=== PATIENT | male | born 1945 | race Caucasian/White ===

== ENCOUNTER 2017-11-10 11:30 | Inpatient (IN) ==
--- NOTE | 2017-11-10 12:16 | ED ---
HPI General Chief Complaint: Fall Stated Complaint: fall/hip pain Time Seen by Provider: 11/10/17 11:43 History of Present Illness HPI Narrative: This is a 72-year-old male who had presents today from his assisted living facility with complaints of right hip pain. Patient states he fell 2 days ago and is not been able to bear weight on his right lower extremity. Patient states he initially thought it was just a bruise however when he went to get up and ambulate today he was unable to bear weight. Reports the pain as a sharp bony pain that he rates as a 6-7 out of the 10 scale. He denies any back pain. He denies any head or neck pain. He denies any other pain or injuries. Related Data Home Medications Medication Instructions Recorded Confirmed No Known Home Medications 11/10/17 11/10/17 Allergies Allergy/AdvReac Type Severity Reaction Status Date / Time No Known Allergies Allergy Unverified 11/10/17 11:37 Review of Systems ROS: all other systems reviewed are negative Constitutional Reports system reviewed and no additional complaints, except as docu Eyes Reports system reviewed and no additional complaints, except as [facility] ENT Reports system reviewed and no additional complaints, except as [facility] Cardiovascular Reports system reviewed and no additional complaints, except as [facility] Respiratory Reports system reviewed and no additional complaints, except as [facility] Gastrointestinal Reports system reviewed and no additional complaints, except as [facility] Genitourinary Reports system reviewed and no additional complaints, except as docu Musculoskeletal Denies back pain and Reports other (Right hip pain.) Integumentary/Breasts Denies other (Skin tears or lesions.) Comments: No skin tears or lesions. Neurologic Denies focal weakness, Denies sensory deficit and Denies paresthesias PMFSH Medical History Medical History Patient denies medical problems (Acute) Surgical History Surgical History No history of previous surgery (Acute) Social History Social History Substance History: No History of Abuse Second Hand Smoke Exposure: No Smoking Status: Former smoker Tobacco Type: Cigarettes How Often Do You Have a Drink Containing Alcohol: Never Recent Travel in [facility] within the Last 8 Weeks: No Immunization History Tetanus Immunization: >5 Years Hx Influenza Vaccine This Season: No Exam Narrative Exam Narrative: GENERAL: Well-nourished, well-developed patient, in no acute respiratory distress. SKIN: Focused skin assessment warm/dry. HEAD: Normocephalic/atraumatic. EYES: No scleral icterus. No injection or drainage. NECK: Supple, trachea midline. No JVD or lymphadenopathy. CARDIOVASCULAR: Sinus tachycardia with a rate of 112. No obvious murmurs appreciated. RESPIRATORY: Breath sounds equal bilaterally. No accessory muscle use. GASTROINTESTINAL: Abdomen soft, non-tender, nondistended. MUSCULOSKELETAL: Right lower extremity with no shortening. Patient had point tenderness to his right proximal femur at the hip level. No external rotation was noted. BACK: Nontender without obvious deformity. No CVA tenderness. NEUROLOGICAL: Awake and alert. Cranial nerves II through XII intact. Motor and sensory grossly within normal limits. Five out of 5 muscle strength in all muscle groups. Normal speech. Course Initial Documented Vital Signs Temperature 97.9 F 11/10/17 11:37 Pulse Rate 111 H 11/10/17 11:37 Respiratory Rate 19 11/10/17 11:37 Blood Pressure 162/89 H 11/10/17 11:37 Pulse Oximetry 94 L 11/10/17 11:37 Last Documented Vital Signs Temperature 97.9 F 11/10/17 11:37 Pulse Rate 112 H 11/10/17 13:07 Respiratory Rate 16 11/10/17 13:07 Blood Pressure 164/82 H 11/10/17 13:07 Pulse Oximetry 96 11/10/17 13:07 Medical Decision Making MDM Narrative Medical decision making narrative: 72-year-old male presents today with right hip pain. Patient fell 2 days ago and states that he cannot bear weight. Patient has a right intertrochanteric/femoral neck fracture. There is no displacement. The patient has no significant past medical history. Case was discussed with Dr. Weaver, on-call orthopedic surgeon who will see the patient and repair his fracture. [facility] Medical Screen Exam Complete: Yes Emergency Medical Condition: Yes Differential Diagnosis Differential Diagnosis: Hip fracture versus contusion versus pelvic fracture Lab Data Result diagrams: 11/10/17 12:15 11/10/17 12:15 Lab Results 11/10/17 11/10/17 11/10/17 Range/Units 12:15 12:15 12:18 WBC 8.4 (4.0-11.0) th/mm3 RBC 4.55 (4.50-5.90) mil/mm3 Hgb 14.8 (13.0-17.0) gm/dL Hct 43.8 (39.0-51.0) % MCV 96.2 (80.0-100.0) fL MCH 32.7 (27.0-34.0) pg MCHC 33.9 (32.0-36.0) % RDW 12.5 (11.6-17.2) % Plt Count 226 (150-450) th/mm3 MPV 9.2 (7.0-11.0) fL Neut % (Auto) 71.2 H (16.0-70.0) % Lymph % (Auto) 16.8 (9.0-44.0) % [place] % (Auto) 10.6 H (0.0-8.0) % Eos % (Auto) 0.6 (0.0-4.0) % Baso % (Auto) 0.8 (0.0-2.0) % Neut # (Auto) 6.0 (1.8-7.7) th/mm3 Lymph # (Auto) 1.4 (1.0-4.8) th/mm3 [place] # (Auto) 0.9 (0.0-0.9) th/mm3 Eos # (Auto) 0.1 (0.0-0.4) th/mm3 Baso # (Auto) 0.1 (0.0-0.2) th/mm3 WBC Differential . Differential Comment Auto diff final Sodium 136 (136-145) meq/L Potassium 3.7 (3.5-5.1) meq/L Chloride 99 (98-107) meq/L Carbon Dioxide 21.4 (21.0-32.0) meq/L Anion Gap 16 H (5-15) meq/L BUN 13 (7-18) mg/dL Creatinine 0.82 (0.60-1.30) mg/dL Estimated GFR Greater than 89 (>89) mL/min Random Glucose 323 H (74-106) mg/dL Calcium 8.6 (8.5-10.1) mg/dL Urine Color Yellow (Yellw/Straw) Urine Clarity Clear (Clear) Urine pH 5.0 (5.0-8.5) Ur Specific [place] 1.032 (1.002-1.035) Urine Protein Negative (Neg-Trace) mg/dL Urine Glucose (UA) 500 or greater (Negative) mg/dL Urine Ketones 20 (Negative) mg/dL Urine Occult Blood Negative (Negative) Urine Nitrate Negative (Negative) Urine Bilirubin Negative (Negative) Urine Urobilinogen Less than 2 (Less than 2) mg/dL Ur Leukocyte Esterase Negative (Negative) Urine RBC 1 (0-3) /hpf Urine WBC 4 (0-5) /hpf Ur Squamous Epith Cells <1 (0-5) /hpf Urine Mucus Few H (Occasional) /lpf Micro UA Comment Culture not ind Ur Microscopic Review Not Reportable Urine Culture Comments Culture not ind Imaging Data Radiologist's impression: Hip X-Ray 11/10/17 11:59 CONCLUSION: Trochanteric fracture. Anatomic alignment of the femoral head with the acetabulum.. Discharge Plan Discharge Disposition Patient Disposition: 30 Still Patient Discharge Details Diagnosis: Closed hip fracture requiring operative repair, Fall Physicians Team ED Provider: Brendan Vogt Primary Care Provider: UNKNOWN, Rxs /Orders / Referrals /Forms Prescriptions: No Action No Known Home Medications RF: 0 Discharge Interventions Interventions: Vital Signs Last Done: 11/10/17 13:07 Status ED Status: With Doctor
[2017-11-10 12:30] LABS: Baso # (Auto) 0.1 th/mm3 (0.0-0.2); Baso % (Auto) 0.8 % (0.0-2.0); Eos # (Auto) 0.1 th/mm3 (0.0-0.4); Eos % (Auto) 0.6 % (0.0-4.0); Hematocrit 43.8 % (39.0-51.0); Hemoglobin 14.8 gm/dL (13.0-17.0); Lymph # (Auto) 1.4 th/mm3 (1.0-4.8); Lymph % (Auto) 16.8 % (9.0-44.0); Mean Corpuscular HGB Conc 33.9 % (32.0-36.0); Mean Corpuscular Hemoglobin 32.7 pg (27.0-34.0); Mean Corpuscular Volume 96.2 fL (80.0-100.0); Mean Platelet Volume 9.2 fL (7.0-11.0); Mono # (Auto) 0.9 th/mm3 (0.0-0.9); Mono % (Auto) 10.6 % (0.0-8.0); Neut % (Auto) 71.2 % (16.0-70.0); Platelet Count 226 th/mm3 (150-450); Red Blood Count 4.55 mil/mm3 (4.50-5.90); Red Cell Distribution Width 12.5 % (11.6-17.2); White Blood Count 8.4 th/mm3 (4.0-11.0)
[2017-11-10 12:32] LABS: Bilirubin,Urine Negative (Negative); Clarity,Urine Clear (Clear); Color,Urine Yellow (Yellw/Straw); Glucose,Urine (UA) 500 or Greater mg/dL (Negative); Leukocyte Esterase,Urine Negative (Negative); Mucus,Urine Few /lpf (Occasional); Nitrite,Urine Negative (Negative); Specific Gravity,Urine 1.032 (1.002-1.035); Squamous Epithelial Cell,Urine <1 /hpf (0-5)
[2017-11-10 12:53] LABS: Anion Gap 16 meq/L (5-15); Blood Urea Nitrogen 13 mg/dL (7-18); Calcium 8.6 mg/dL (8.5-10.1); Carbon Dioxide 21.4 meq/L (21.0-32.0); Chloride 99 meq/L (98-107); Glomerular Filtration Rate Greater Than 89 mL/min (>89); Glucose,Random 323 mg/dL (74-106); Potassium 3.7 meq/L (3.5-5.1); Sodium 136 meq/L (136-145)
--- NOTE | 2017-11-10 13:19 | XR ---
EXAM DATE: 11/10/2017 1:06 PM EDT AGE/SEX: 72 years / Male INDICATIONS: Trauma. Fall. Possible fracture at the right femoral neck. CLINICAL DATA: This is the patient's initial encounter. Patient reports that signs and symptoms have been present for 3 days and indicates a pain score of 8/10. MEDICAL/SURGICAL HISTORY: None. None. COMPARISON: No prior exams available for comparison. FINDINGS: Intertrochanteric fracture of the right hip. Femoral head is aligned with the acetabulum. CONCLUSION: Trochanteric fracture. Anatomic alignment of the femoral head with the acetabulum.. Electronically signed by: Jann Xavier MD 11/10/2017 1:17 PM EDT
[2017-11-10 15:19] LABS: Activated Partial Thrombo Time 21.9 sec (24.3-30.1); Prothrombin Time 10.1 sec (9.8-11.6)
--- NOTE | 2017-11-10 16:22 | P.HPIM ---
History of Present Illness Service: [facility] Primary Care Physician: UNKNOWN Chief Complaint: inability to bear weight History of Present Illness: Mr. Fitch is a 72 yo M with no reported PMH schizoaffective disorder who presented to [facility] from [facility] after reported fall injury 3 days prior. Patient states that he tripped on a slipper and his right leg was bent resulted in him falling. Patient reports immediate knowledge of injury; he was able to crawl into bed and stayed there for ~2 days hoping his pain would improve. Patient was then unable to stand when helped by staff so was taken to hospital. He reports pain when standing but that he felt good last night so he thought he was improving. Patient denies medical conditions. No reported head injury from fall; he states that it was from tripping. Patient does not report chest pain, shortness of breath, abdominal pain, abnormal urination, or abnormal BM. 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 He generally does well and doesn't need assistance from staff PMH- schizoaffective disorder PSH- L humerus fracture Allergies- NKDA Meds- None; occasional ASA - Diagnosis (1) Closed hip fracture requiring operative repair (2) Fall Inpatient Certification: I certify that the inpatient services were ordered in accordance with Medicare regulations governing the order. This includes certification that hospital inpatient services are reasonable and necessary and in the case of services not specified as inpatient-only under 42 CFR 419.22(n), that they are appropriately provided as inpatient services in accordance to with the 2-midnight benchmark under 43 CFR 412.3(e) Review of Systems All other systems reviewed negative except as stated in HPI, unobtainable due to mental condition Constitutional: Denies chills, Denies fever(s) Eyes: Denies blurry vision, Denies change in vision Ears, Nose, Mouth, and Throat: Denies sinus pain, Denies sore throat Cardiovascular: Denies chest pain, Denies shortness of breath Respiratory: Denies shortness of breath, Denies wheezing Gastrointestinal: Denies abdominal pain, Denies vomiting Genitourinary: Denies urinary frequency, Denies urinary urgency Musculoskeletal: Denies neck pain, Denies numbness Skin/Breast: Denies lesions, Denies redness Neurologic: Denies numbness, Denies tingling Psychiatric: Reports other (reports he is billionare, friends with [employer]) Hematologic/Lymphatic: Denies easy bleeding, Denies easy bruising PMFSH - History History Provided By: Patient - Medical History Medical History: Medical History (Last Updated 11/10/17 @ 11:40 by Lisa Molina) Patient denies medical problems - Surgical History Surgical History: Surgical History (Last Updated 11/10/17 @ 11:40 by Lisa Molina) No history of previous surgery - Social History I have reviewed the patient's Social History: Yes - Tobacco History Second Hand Smoke Exposure: No Tobacco Use In Past 30 Days: No Smoking Status: Former smoker Tobacco Type: Cigarettes - Alcohol History How Often Do You Have a Drink Containing Alcohol: Never - Substance Use History Substance History: No History of Abuse - Travel History Recent Travel in the [facility] Within the Last 8 Weeks: No - Immunization History Tetanus Immunization: >5 Years Hx Influenza Vaccine This Season: No Medications and Allergies Active Medications: Active Medications Sodium Chloride (Ns Flush) 2 ml IV.FLUSH PRN PRN PRN Reason: FLUSH AFTER USING IV ACCESS Allergies Allergy/AdvReac Type Severity Reaction Status Date / Time No Known Allergies Allergy Verified 11/10/17 20:57 Home Medications Medication Instructions Recorded Confirmed Type No Known Home Medications 11/10/17 11/10/17 History Exam Vital signs: Vital Signs 11/10/17 11:37 11/10/17 11:41 11/10/17 13:07 Temperature 97.9 F Pulse Rate 111 H 108 H 112 H Respiratory Rate 19 16 Blood Pressure 162/89 H 164/82 H Pulse Oximetry 94 L 96 Intake & Output 11/09/17 11/10/17 11/10/17 18:59 06:59 18:59 Weight 81.647 kg Narrative: Gen: NAD Skin: No visible lesions HEENT: EOMI; PERRLA. Cardiovascular: Regular rate and rhythm; normal perfusion. R LE swelling Respiratory: CTAB; normal rate Abdominal: Soft, nontender, nondistended. Normal BS Ext: Grossly normal ROM and motor function of upper extremities> RLE extended; ROM of RLE not assessed. No pain at rest Neuro: Oriented to place, person, time. Grossly normal CN. Grossly normal peripheral motor/sensory function Psych: Patient would answer questions directly when asked but would have tangential thoughts and seeming delusions. 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 Results - Labs CBC & Chem 7: 11/10/17 12:15 11/10/17 12:15 Labs: Short CBC 11/10/17 Range/Units 12:15 WBC 8.4 (4.0-11.0) th/mm3 Hgb 14.8 (13.0-17.0) gm/dL Hct 43.8 (39.0-51.0) % Plt Count 226 (150-450) th/mm3 BMP 11/10/17 12:15 Sodium 136 Potassium 3.7 Chloride 99 Carbon Dioxide 21.4 BUN 13 Creatinine 0.82 Calcium 8.6 Urine 11/10/17 Range/Units 12:18 Urine Color Yellow (Yellw/Straw) Urine Clarity Clear (Clear) Urine pH 5.0 (5.0-8.5) Ur Specific [place] 1.032 (1.002-1.035) Urine Protein Negative (Neg-Trace) mg/dL Urine Glucose (UA) 500 or greater (Negative) mg/dL - Imaging Impressions Hip X-Ray 11/10/17 11:59 CONCLUSION: Trochanteric fracture. Anatomic alignment of the femoral head with the acetabulum.. Caprini VTE Risk Assessment Caprini VTE Risk Assessment: Moderate/High Risk (score >= 2) Caprini Risk Assessment Model: Point Value = 1 Point Value = 2 Point Value = 3 Point Value = 5 Age 41-60 Minor surgery BMI > 25 kg/m2 Swollen legs Varicose veins or History of unexplained or recurrent spontaneous Oral contraceptives or hormone replacement Sepsis (< 1 month) Serious lung disease, including pneumonia (< 1 month) Abnormal pulmonary function Acute myocardial infarction Congestive heart failure (< 1 month) History of inflammatory bowel disease Medical patient at bed rest Age 61-74 Arthroscopic surgery Major open surgery (> 45 min) Laparoscopic surgery (> 45 min) Malignancy Confined to bed (> 72 hours) Immobilizing plaster cast Central venous access Age >= 75 History of VTE Family history of VTE Factor V Leiden Prothrombin [id number] Lupus anticoagulant Anticardiolipin antibodies Elevated serum homocysteine Heparin-induced thrombocytopenia Other congenital or acquired thrombophilia Stroke (< 1 month) Elective arthroplasty Hip, pelvis, or leg fracture Acute spinal cord injury (< 1 month) Prophylaxis Regimen: Total Risk Factor Score Risk Level Prophylaxis Regimen 0-1 Low Early ambulation 2 Moderate Order ONE of the following: *Sequential Compression Device (SCD) *Heparin 5000 units SQ BID 3-4 Higher Order ONE of the following medications: *Heparin 5000 units SQ TID *Enoxaparin/Lovenox 40 mg SQ daily (WT < 150 kg, CrCl > 30 mL/min) *Enoxaparin/Lovenox 30 mg SQ daily (WT < 150 kg, CrCl > 10-29 mL/min) *Enoxaparin/Lovenox 30 mg SQ BID (WT < 150 kg, CrCl > 30 mL/min) AND/OR *Sequential Compression Device (SCD) 5 or more Highest Order ONE of the following medications: *Heparin 5000 units SQ TID (Preferred with Epidurals) *Enoxaparin/Lovenox 40 mg SQ daily (WT < 150 kg, CrCl > 30 mL/min) *Enoxaparin/Lovenox 30 mg SQ daily (WT < 150 kg, CrCl > 10-29 mL/min) *Enoxaparin/Lovenox 30 mg SQ BID (WT < 150 kg, CrCl > 30 mL/min) AND *Sequential Compression Device (SCD) Assessment and Plan - Assessment (1) Closed hip fracture requiring operative repair Code(s): S72.009A - Fracture of unspecified part of neck of unspecified femur, initial encounter for closed fracture Status: Acute (2) Fall Code(s): W19.XXXA - Unspecified fall, initial encounter Status: Acute - Plan Mr. Fitch is a 72 yo M with: Right hip fracture Impression: Mechanical fall resulting in R hip fracture 3 days prior. Inability to bear weight afterwards; patient has remained in bed since fracture. Hip XR on admission demonstrating intertrochanteric fracture Per discussion with Orthopedic surgery, patient initially demonstrated knowledge of risks/benefits and elected to proceed; patient subsequently changed mind and had flight of ideas -Orthopedic surgery consulted -Case management and Psychiatry consulted to establish whether patient has capacity -Will make nonweightbearing on RLE currently -Will use bilateral SCD's until decision regarding surgery made -Morphine 2mg IV q4hrs for pain control Psychiatric illness Impression: flight of ideas, delusions of grandeur intermittently. Reported PMH of schizophrenia. Neurologic exam normal; oriented -Will call patient's SHELTER to get further care details -Psychiatry consulted per Ortho recommendation Mild tachycardia Impression: sinus tachycardia on EKG. Hip fracture x3 days. CBC, CXR, UA unremarkable; no concern for sepsis currently -Will check US LE due to RLE asymmetry (assume secondary to fracture but has been bedbound for several days). Wells score -Continue IVF -Will monitor labs Presurgical evaluation Impression: No reported PMH of cardio/pulmonary/renal disease. Mild sinus tachycardia on EKG (HR 108). CBC/BMP/Coagulation profile unremarkable with exception of glucose 323 -No contraindications to surgery seen -Will give low dose SS insulin/accuchecks due to hyperglycemia on admission DVT PPX -SCD's while awaiting decision regarding surgery Code Status: Full code (1) Closed hip fracture requiring operative repair Qualifiers: Encounter type: initial encounter Laterality: right Qualified Code(s): S72.001A - Fracture of unspecified part of neck of right femur, initial encounter for closed fracture (2) Fall Qualifiers: Encounter type: initial encounter Qualified Code(s): W19.XXXA - Unspecified fall, initial encounter
[2017-11-10] MEDS ORDERED: Morphine Inj 4 MG/ML Vial IV.PUSH PRN (16:29)
[2017-11-10] MEDS ORDERED: Metoprolol Tartrate 25 MG Tablet PO ONE (17:23)
[2017-11-10] MEDS ORDERED: Chlorhexidine Gluconate 2% 1 Pack (2 Cloths) TOPICAL ONE (17:23)
[2017-11-10] MEDS ORDERED: Sodium Chlor 0.9% Inj 500 ML IV.SIG SCH (18:00)
[2017-11-10] MEDS ORDERED: ceFAZolin 2 GM Premix Inj 0 GM/0 ML PIGGYBACK IV.SIG ONE (18:13)
--- NOTE | 2017-11-10 19:42 | MB ---
cc: David MCNAIR DATE: 11/10/2017 CHIEF COMPLAINT: Right hip fracture. HISTORY OF PRESENT ILLNESS: Mr. Fitch is a 72-year-old gentleman who has a history of schizophrenia. He presented by way of transfer to the [place] emergency department after having sustained a fall 2 days ago. He resides at an assisted living facility. He notes that he fell a short distance and has since been unable to bear weight to the right lower extremity. He has tried to ambulate since then; however, has been unable to weight bear secondary to the pain. He rates the pain a 6/10 in severity. He denies any radicular component of the pain. He denies other upper extremity or lower extremity complaints. PAST MEDICAL HISTORY: Significant for schizophrenia. PAST SURGICAL HISTORY: None. SOCIAL HISTORY: Denies tobacco or alcohol use. FAMILY HISTORY: Noncontributory. MEDICATIONS: Per hospitalist chart. ALLERGIES: NO KNOWN DRUG ALLERGIES. PHYSICAL EXAMINATION: VITAL SIGNS: Temperature of 97.9, pulse 111, respiratory rate of 19, blood pressure 162/89. GENERAL: He is alert and oriented to person, place, and time; however, throughout the examination, he has flight of ideas. ABDOMEN: Nontender to palpation. CHEST: Nonlabored respirations, no audible wheezing. CARDIOVASCULAR: Sinus tachycardia at a rate of 111. NEUROLOGIC: Sensation intact to bilateral lower extremities to the sural, saphenous, SP, DP and tibial nerve distribution. MUSCULOSKELETAL: Focused evaluation of bilateral lower extremities demonstrates no tenderness or pain with log roll of the left hip. There is no tenderness over the bilateral knees, ankles or feet. There is pain with log roll of the right hip. He has a 2+ DP and PT pulse bilaterally. IMAGING: Two views of the right hip demonstrate a basicervical femoral neck fracture, displaced. ASSESSMENT: A 72-year-old gentleman status post mechanical fall 2 days ago with a right basicervical femoral neck fracture. PLAN: I had a thorough discussion with Mr. Fitch at bedside. Our perioperative team has made arrangements for open reduction and internal fixation with intramedullary nail implant of the right hip. On conversation at bedside I reviewed the relevant risks, benefits and expected postoperative course of surgical management. Risks include but are not limited to damage to surrounding blood vessels or nerves, infection, wound healing issues, malunion, nonunion, implant failure, strokes, VT, and even . The patient understood the relevant risks of surgery and elected to proceed forward with the surgical procedure. I then exited the room. Ten minutes after this discussion of informed consent, I was called back to the patient room by our nursing staff. The patient noted that he was no longer inclined to proceed with surgery. He was fixated on the fact that he was not fed any meals over the last 3 days and that as such, his fracture has not healed. I explained to him that his current fracture displacement and indications for surgery are not related to his diet intake. He understood this. I recommended surgery given the extent of displacement and standard of care in line with trochanteric and basicervical femoral neck fractures. He understood this plan of care and elected to proceed with surgery. I was then called back 10 minutes after this as anesthesia was attempting to transfer the patient to the OR. He stated that he refused surgery and as such, would like to be discharged from the hospital. At this point in time, the patient had a flight of ideas. He noted that he "owns [employer]" and that he is best friends with [employer] and that he is no longer opting for surgery. I politely understood his issues and his surgical case was canceled. Case management was then called. We will involve both psychiatry to make the decision whether this patient truly has capacity. In my professional opinion, he does not. As such, we will likely need to involve a state designated healthcare surrogate in order to make the decision for surgery. Orthopedic surgery to continue to follow the patient's inpatient care. In the interim, he is to be strict nonweightbearing to the right lower extremity. I did discuss with him that should nonoperative care be employed that this fracture is low potential for healing and that he may have chronic pain and future inability to bear weight to the lower extremity. All questions and concerns were addressed at bedside. David Weaver MD CM/ct , 06:54 PM , 07:05 PM
[2017-11-10] MEDS: Acetaminophen 325 MG Tablet PO PRN (20:55)
[2017-11-10] MEDS ORDERED: Dextrose 50% in Water 50 ML Vial IV.PUSH PRN (21:06)
[2017-11-10] MEDS: Senna/Docusate Sodium 8.6/50 MG Tablet PO SCH (22:02)
--- NOTE | 2017-11-10 23:01 | US ---
EXAM DATE: 11/10/2017 10:22 PM EDT AGE/SEX: 72 years / Male INDICATIONS: Right leg swelling. CLINICAL DATA: This is the patient's initial encounter. Patient reports that signs and symptoms have been present for 1 day and indicates a pain score of 0/10. MEDICAL/SURGICAL HISTORY: . Right leg swelling. Fractured right hip. None. COMPARISON: [facility] [place], HIP RIGHT 2V, 11/10/2017. . TECHNIQUE: Venous ultrasound of both lower extremities was performed from the inguinal ligament to t he proximal calf. Real-time, color Doppler and spectral tracing, compression and augmentation techni ques were used. FINDINGS: Partially occlusive thrombus in the right superficial femoral vein. The popliteal and joe nedra vein are completely occluded. No definite flow in the right posterior tibial vein. CONCLUSION: 1. Widespread venous thrombosis of the right lower extremity as above. Electronically signed by: Jose F Maldonado MD 11/10/2017 11:00 PM EDT
--- NOTE | 2017-11-11 00:50 | ECG ---
Date Performed: 11/10/2017 Time Performed: 11:38:32 PTAGE: 72 years EKG: SINUS TACHYCARDIA LEFT VENTRICULAR HYPERTROPHY AND ST-T CHANGE ABNORMAL ECG INTERPRETATION BASED ON A DEFAULT AGE OF 40 YEARS PREVIOUS TRACING : 01/17/2015 10.29 Since the previous tracing, no significant change not ed DOCTOR: Niko Lynn Interpretating Date/Time 11/11/2017 00:48:54
[2017-11-11 05:06] LABS: Baso # (Auto) 0.1 th/mm3 (0.0-0.2); Eos # (Auto) 0.1 th/mm3 (0.0-0.4); Eos % (Auto) 1.2 % (0.0-4.0); Hematocrit 43.9 % (39.0-51.0); Hemoglobin 15.1 gm/dL (13.0-17.0); Lymph # (Auto) 2.1 th/mm3 (1.0-4.8); Lymph % (Auto) 24.4 % (9.0-44.0); Mean Corpuscular HGB Conc 34.3 % (32.0-36.0); Mean Corpuscular Hemoglobin 32.7 pg (27.0-34.0); Mean Corpuscular Volume 95.2 fL (80.0-100.0); Mean Platelet Volume 9.2 fL (7.0-11.0); Mono % (Auto) 12.2 % (0.0-8.0); Neut # (Auto) 5.2 th/mm3 (1.8-7.7); Neut % (Auto) 61.2 % (16.0-70.0); Platelet Count 229 th/mm3 (150-450); Red Blood Count 4.61 mil/mm3 (4.50-5.90); Red Cell Distribution Width 12.5 % (11.6-17.2); White Blood Count 8.5 th/mm3 (4.0-11.0)
[2017-11-11] MEDS: Sod Chloride 0.9% Inj 1,000 ML IV.CONT SCH ×3 (05:16→21:31)
[2017-11-11] MEDS: Insulin NovoLOG Aspart Correctional Sugar Inj SQ SCH ×5 (05:17→20:37)
[2017-11-11 05:33] LABS: Alanine Aminotransferase 23 U/L (12-78); Albumin 2.8 g/dL (3.4-5.0); Anion Gap 15 meq/L (5-15); Aspartate Aminotransferase 21 U/L (15-37); Blood Urea Nitrogen 14 mg/dL (7-18); Calcium 8.4 mg/dL (8.5-10.1); Carbon Dioxide 23.5 meq/L (21.0-32.0); Chloride 100 meq/L (98-107); Glomerular Filtration Rate Greater Than 89 mL/min (>89); Glucose,Random 235 mg/dL (74-106); Potassium 3.6 meq/L (3.5-5.1); Sodium 138 meq/L (136-145)
[2017-11-11 05:42] LABS: Alkaline Phosphatase 84 U/L (45-117); Total Protein 7.2 g/dL (6.4-8.2)
--- NOTE | 2017-11-11 07:56 | P.PNIM ---
Subjective Interval history: Mr. Fitch was afebrile with mild tachycardia overnight; otherwise stable VS. US of lower extremities demonstrated DVT. Patient reports that he has refused surgery and that he is sure. He also declines treatment of DVT, stating that it will go away. Patient was told the risks of complication including but still declines. 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 Patient requests a diet but declines other treatment. He states his leg pain is controlled. Physical Exam Vital signs: Vital Signs 11/10/17 11:37 11/10/17 11:41 11/10/17 13:07 Temperature 97.9 F Pulse Rate 111 H 108 H 112 H Respiratory Rate 19 16 Blood Pressure 162/89 H 164/82 H Pulse Oximetry 94 L 96 11/10/17 20:00 11/11/17 00:00 11/11/17 02:47 Temperature 97.6 F 97.4 F L Pulse Rate 110 H 101 H Respiratory Rate 18 17 17 Blood Pressure 165/88 H 144/82 H Pulse Oximetry 97 98 11/11/17 04:00 Temperature 97.5 F L Pulse Rate 100 H Respiratory Rate 17 Blood Pressure 170/82 H Pulse Oximetry 98 Intake & Output 11/10/17 11/11/17 11/11/17 18:59 06:59 18:59 Output Total 300 / 300 1025 / 1025 Balance -300 / -300 -1025 / -1025 Weight 81.647 kg 81.2 kg Output: Urine 300 / 300 1025 / 1025 Other: Date of Last Bowel Movement 11/08/17 Narrative: Gen: NAD Skin: No visible lesions HEENT: EOMI; PERRLA. Cardiovascular: Regular rate and rhythm; normal perfusion. Respiratory: CTAB; normal rate Abdominal: Soft, nontender, nondistended. Normal BS Ext: Grossly normal ROM and motor function of upper extremities> RLE extended; ROM of RLE not assessed. No pain at rest. R LE swelling Neuro: Oriented to place, person, time. Grossly normal CN. Grossly normal peripheral motor/sensory function Psych: Patient would answer questions directly when asked but would have tangential thoughts and delusions of grandeur Results - Labs CBC & Chem 7: 11/11/17 03:39 11/11/17 03:39 Laboratory Results - last 24 hr 11/10/17 11/10/17 11/10/17 12:15 12:15 12:18 WBC 8.4 RBC 4.55 Hgb 14.8 Hct 43.8 MCV 96.2 MCH 32.7 MCHC 33.9 RDW 12.5 Plt Count 226 MPV 9.2 Neut % (Auto) 71.2 H Lymph % (Auto) 16.8 Waldo % (Auto) 10.6 H Eos % (Auto) 0.6 Baso % (Auto) 0.8 Neut # (Auto) 6.0 Lymph # (Auto) 1.4 [place] # (Auto) 0.9 Eos # (Auto) 0.1 Baso # (Auto) 0.1 WBC Differential . Differential Comment Auto diff final PT INR APTT Sodium 136 Potassium 3.7 Chloride 99 Carbon Dioxide 21.4 Anion Gap 16 H BUN 13 Creatinine 0.82 Estimated GFR Greater than 89 Random Glucose 323 H Calcium 8.6 Total Bilirubin AST ALT Alkaline Phosphatase Total Protein Albumin TSH Urine Color Yellow Urine Clarity Clear Urine pH 5.0 Ur Specific [place] 1.032 Urine Protein Negative Urine Glucose (UA) 500 or greater Urine Ketones 20 Urine Occult Blood Negative Urine Nitrate Negative Urine Bilirubin Negative Urine Urobilinogen Less than 2 Ur Leukocyte Esterase Negative Urine RBC 1 Urine WBC 4 Ur Squamous Epith Cells <1 Urine Mucus Few H Micro UA Comment Culture not ind Ur Microscopic Review Not Reportable Urine Culture Comments Culture not ind Blood Type Antibody Screen 11/10/17 11/10/17 11/11/17 14:54 14:54 03:39 WBC 8.5 RBC 4.61 Hgb 15.1 Hct 43.9 MCV 95.2 MCH 32.7 MCHC 34.3 RDW 12.5 Plt Count 229 MPV 9.2 Neut % (Auto) 61.2 Lymph % (Auto) 24.4 [place] % (Auto) 12.2 H Eos % (Auto) 1.2 Baso % (Auto) 1.0 Neut # (Auto) 5.2 Lymph # (Auto) 2.1 [place] # (Auto) 1.0 H Eos # (Auto) 0.1 Baso # (Auto) 0.1 WBC Differential . Differential Comment Auto diff final PT 10.1 INR 1.0 APTT 21.9 L Sodium Potassium Chloride Carbon Dioxide Anion Gap BUN Creatinine Estimated GFR Random Glucose Calcium Total Bilirubin AST ALT Alkaline Phosphatase Total Protein Albumin TSH Urine Color Urine Clarity Urine pH Ur Specific [place] Urine Protein Urine Glucose (UA) Urine Ketones Urine Occult Blood Urine Nitrate Urine Bilirubin Urine Urobilinogen Ur Leukocyte Esterase Urine RBC Urine WBC Ur Squamous Epith Cells Urine Mucus Micro UA Comment Ur Microscopic Review Urine Culture Comments Blood Type A Positive Antibody Screen Negative 11/11/17 03:39 WBC RBC Hgb Hct MCV MCH MCHC RDW Plt Count MPV Neut % (Auto) Lymph % (Auto) Wal[place] % (Auto) Eos % (Auto) Baso % (Auto) Neut # (Auto) Lymph # (Auto) [place] # (Auto) Eos # (Auto) Baso # (Auto) WBC Differential Differential Comment PT INR APTT Sodium 138 Potassium 3.6 Chloride 100 Carbon Dioxide 23.5 Anion Gap 15 BUN 14 Creatinine 0.76 Estimated GFR Greater than 89 Random Glucose 235 H Calcium 8.4 L Total Bilirubin 1.5 H AST 21 ALT 23 Alkaline Phosphatase 84 Total Protein 7.2 Albumin 2.8 L TSH 1.680 Urine Color Urine Clarity Urine pH Ur Specific [place] Urine Protein Urine Glucose (UA) Urine Ketones Urine Occult Blood Urine Nitrate Urine Bilirubin Urine Urobilinogen Ur Leukocyte Esterase Urine RBC Urine WBC Ur Squamous Epith Cells Urine Mucus Micro UA Comment Ur Microscopic Review Urine Culture Comments Blood Type Antibody Screen - Imaging Impressions Venous Doppler Study 11/10/17 00:00 CONCLUSION: 1. Widespread venous thrombosis of the right lower extremity as above. Hip X-Ray 11/10/17 11:59 CONCLUSION: Trochanteric fracture. Anatomic alignment of the femoral head with the acetabulum.. Assessment and Plan - Assessment (1) Closed hip fracture requiring operative repair Code(s): S72.009A - Fracture of unspecified part of neck of unspecified femur, initial encounter for closed fracture Status: Acute (2) Fall Code(s): W19.XXXA - Unspecified fall, initial encounter Status: Acute (3) DVT (deep venous thrombosis) Code(s): I82.409 - Acute embolism and thrombosis of unspecified deep veins of unspecified lower extremity Status: Acute (4) Schizoaffective disorder Code(s): F25.9 - Schizoaffective disorder, unspecified Status: Acute - Plan Mr. Fitch is a 72 yo M with: Right hip fracture Impression: Mechanical fall resulting in R hip fracture 3 days prior. Inability to bear weight afterwards; patient has remained in bed since fracture. Hip XR on admission demonstrating intertrochanteric fracture Per discussion with Orthopedic surgery, patient initially demonstrated knowledge of risks/benefits and elected to proceed; patient subsequently changed mind and had flight of ideas -Orthopedic surgery consulted -Case management and Psychiatry consulted to establish whether patient has capacity -Will make nonweightbearing on RLE currently -Morphine 2mg IV q4hrs for pain control -will give diet and defer surgical plans until capacity determined Psychiatric illness Impression: flight of ideas, delusions of grandeur intermittently. Reported PMH of schizophrenia. Neurologic exam normal; oriented -Will call patient's [facility] to get further care details -Psychiatry consulted DVT Impression: RLE DVT on Doppler US. Tachycardic with immobility. Patient declines treatment at this time -Psych evaluation for capacity Presurgical evaluation Impression: No reported PMH of cardio/pulmonary/renal disease. Mild sinus tachycardia on EKG (HR 108). CBC/BMP/Coagulation profile unremarkable with exception of glucose 323 -No contraindications to surgery seen -Will give low dose SS insulin/accuchecks due to hyperglycemia on admission DVT PPX -SCD's -Will need therapeutic anticoagulation and/or IVC filter based on surgery plans since has DVT Discussed Condition With: Orthopedic surgery (1) Closed hip fracture requiring operative repair Qualifiers: Encounter type: initial encounter Laterality: right Qualified Code(s): S72.001A - Fracture of unspecified part of neck of right femur, initial encounter for closed fracture (2) Fall Qualifiers: Encounter type: initial encounter Qualified Code(s): W19.XXXA - Unspecified fall, initial encounter
[2017-11-11] MEDS: Senna/Docusate Sodium 8.6/50 MG Tablet PO SCH ×2 (10:29→20:37)
[2017-11-11] MEDS: Acetaminophen 325 MG Tablet PO PRN ×2 (11:56→18:07)
[2017-11-12] MEDS: Insulin NovoLOG Aspart Correctional Sugar Inj SQ SCH ×5 (03:11→21:46)
[2017-11-12] MEDS: Acetaminophen 325 MG Tablet PO PRN ×2 (08:53→12:46)
--- NOTE | 2017-11-12 11:27 | P.PNIM ---
Subjective Interval history: Mr. Fitch is a 72 yo M with no reported PMH schizoaffective disorder who presented to [place] [facility] from [facility] after reported fall injury 3 days prior. Patient states that he tripped on a slipper and his right leg was bent resulted in him falling. Patient reports immediate knowledge of injury; he was able to crawl into bed and stayed there for ~2 days hoping his pain would improve. Patient was then unable to stand when helped by staff so was taken to hospital. He reports pain when standing but that he felt good last night so he thought he was improving. Patient denies medical conditions. No reported head injury from fall; he states that it was from tripping. Patient does not report chest pain, shortness of breath, abdominal pain, abnormal urination, or abnormal BM. 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 He generally does well and doesn't need assistance from staff PMH- schizoaffective disorder PSH- L humerus fracture Allergies- NKDA Meds- None; occasional ASA 9-22 Mr. Fitch was afebrile with mild tachycardia overnight; otherwise stable VS. US of lower extremities demonstrated DVT. Patient reports that he has refused surgery and that he is sure. He also declines treatment of DVT, stating that it will go away. Patient was told the risks of complication including but still declines. Patient also stated that he wanted me to call the social security office or find and "honest cop examiner" to give them his SS digits to confirm that he is a billionaire, helped the [employer], and [place]. Patient requests a diet but declines other treatment. He states his leg pain is controlled. 9-23 patient has flight of ideas. Is acutely bipolar and manic and schizophrenic Await psychiatry Patient is refusing all Lovenox and any other medications Has positive DVT has right hip fracture that needs repair that he is refusing Have discussed with patient and RN and case management NEEDS SURGERY AND TREATMENT FOR DVT NEEDS PSYCHIATRIC EVALUATION Physical Exam Vital signs: Vital Signs 11/11/17 12:34 11/11/17 14:06 11/11/17 20:00 Temperature 97.9 F 97.3 F L 97.2 F L Pulse Rate 115 H 104 H 101 H Respiratory Rate 16 16 18 Blood Pressure 162/91 H 144/86 H 138/86 Pulse Oximetry 97 95 94 L 11/12/17 00:00 11/12/17 08:00 Temperature 98.2 F 97.8 F Pulse Rate 93 H 94 H Respiratory Rate 18 18 Blood Pressure 144/81 H 164/99 H Pulse Oximetry 94 L Intake & Output 11/11/17 11/12/17 11/12/17 18:59 06:59 18:59 Intake Total 240 / 240 Output Total 875 / 875 1325 / 1325 500 / 500 Balance -635 / -635 -1325 / -1325 -500 / -500 Weight 81 kg Intake: Oral 240 / 240 Output: Urine 875 / 875 1325 / 1325 500 / 500 Other: # Voids 1 Date of Last Bowel Movement 11/11/17 11/11/17 11/11/17 # Bowel Movements 1 Narrative: Gen: NAD Skin: No visible lesions HEENT: EOMI; PERRLA. Cardiovascular: Regular rate and rhythm; normal perfusion. Respiratory: CTAB; normal rate Abdominal: Soft, nontender, nondistended. Normal BS Ext: Grossly normal ROM and motor function of upper extremities> RLE extended; ROM of RLE not assessed. No pain at rest. R LE swelling Neuro: Oriented to place, person, time. Grossly normal CN. Grossly normal peripheral motor/sensory function Psych: Patient would answer questions directly when asked but would have tangential thoughts and delusions of grandeur Major flight of ideas Insight and judgment is nonexistent Mood and behavior is inappropriate Results - Labs CBC & Chem 7: 11/11/17 03:39 11/11/17 03:39 Assessment and Plan - Assessment (1) Closed hip fracture requiring operative repair Code(s): S72.009A - Fracture of unspecified part of neck of unspecified femur, initial encounter for closed fracture Status: Acute (2) Fall Code(s): W19.XXXA - Unspecified fall, initial encounter Status: Acute (3) DVT (deep venous thrombosis) Code(s): I82.409 - Acute embolism and thrombosis of unspecified deep veins of unspecified lower extremity Status: Acute (4) Schizoaffective disorder Code(s): F25.9 - Schizoaffective disorder, unspecified Status: Acute - Plan Mr. Fitch is a 72 yo M with: Right hip fracture Impression: Mechanical fall resulting in R hip fracture 3 days prior. Inability to bear weight afterwards; patient has remained in bed since fracture. Hip XR on admission demonstrating intertrochanteric fracture Per discussion with Orthopedic surgery, patient initially demonstrated knowledge of risks/benefits and elected to proceed; patient subsequently changed mind and had flight of ideas -Orthopedic surgery consulted -Case management and Psychiatry consulted to establish whether patient has capacity -Will make nonweightbearing on RLE currently -Morphine 2mg IV q4hrs for pain control -will give diet and defer surgical plans until capacity determined -We will need surgery patient does not understand the concept-will see what psychiatry has to offer Psychiatric illness Impression: flight of ideas, delusions of grandeur intermittently. Reported PMH of schizophrenia. Neurologic exam normal; oriented -Will [facility] to get further care details -Psychiatry consulted --await their help with his acute psychosis DVT Impression: RLE DVT on Doppler US. Tachycardic with immobility. Patient declines treatment at this time -Psych evaluation for capacity Presurgical evaluation Impression: No reported PMH of cardio/pulmonary/renal disease. Mild sinus tachycardia on EKG (HR 108). CBC/BMP/Coagulation profile unremarkable with exception of glucose 323 -No contraindications to surgery seen -Will give low dose SS insulin/accuchecks due to hyperglycemia on admission Hyperglycemia possible diabetes we will check a hemoglobin A1c DVT PPX -SCD's -Will need therapeutic anticoagulation and/or IVC filter based on surgery plans since has DVT Code Status: Full code Discussed Condition With: RN and patient and case management Discharge Planning: Await psychiatric help as well as orthopedic help regarding his right hip fracture will also need chronic anticoagulation or an IVC filter (1) Closed hip fracture requiring operative repair Qualifiers: Encounter type: initial encounter Laterality: right Qualified Code(s): S72.001A - Fracture of unspecified part of neck of right femur, initial encounter for closed fracture (2) Fall Qualifiers: Encounter type: initial encounter Qualified Code(s): W19.XXXA - Unspecified fall, initial encounter
[2017-11-12] MEDS: Sod Chloride 0.9% Inj 1,000 ML IV.CONT SCH ×2 (11:46→21:45)
[2017-11-12] MEDS: Senna/Docusate Sodium 8.6/50 MG Tablet PO SCH ×2 (11:46→21:46)
--- NOTE | 2017-11-12 23:23 | P.PNOP ---
Subjective Interval history: Patient still refusing surgery. Flight of ideas. Physical Exam Vital signs: Vital Signs 11/12/17 00:00 11/12/17 08:00 11/12/17 12:00 Temperature 98.2 F 97.8 F 98.1 F Pulse Rate 93 H 94 H 102 H Respiratory Rate 18 18 16 Blood Pressure 144/81 H 164/99 H 167/79 H Pulse Oximetry 94 L 96 11/12/17 16:00 11/12/17 20:00 Temperature 97.6 F 97.3 F L Pulse Rate 98 H 102 H Respiratory Rate 18 18 Blood Pressure 138/76 137/87 Pulse Oximetry 94 L 93 L Intake & Output 11/12/17 11/12/17 11/13/17 06:59 18:59 06:59 Output Total 1325 / 1325 1350 / 1350 Balance -1325 / -1325 -1350 / -1350 Weight 81 kg Output: Urine 1325 / 1325 1350 / 1350 Other: Date of Last Bowel Movement 11/11/17 11/11/17 Narrative: Gen: NAD Skin: No visible lesions HEENT: EOMI; PERRLA. Cardiovascular: Regular rate and rhythm; normal perfusion. 2+ RLE DP/PT pulses Ext: Pain with log roll of RLE. Neuro: Oriented to place, person, time. SILT to dorsal and volar right foot. Psych: Flight of ideas. No insight or judgement. Results - Labs CBC & Chem 7: 11/11/17 03:39 11/11/17 03:39 Assessment and Plan - Assessment and Plan Right intertrochanteric femur fracture - Continues to refuse surgery - Awaiting social work to proceed with assignment of state designated healthcare surrogate for decision making - Awaiting Psych for capacity evaluation - Orthopedics to plan for right hip ORIF, pending receipt of informed consent. - Strict NWB RLE - DVT ppx - Multimodal pain control - Please contact Dr. Gamble's team when informed consent can be obtained from surrogate.
[2017-11-13] MEDS: Insulin NovoLOG Aspart Correctional Sugar Inj SQ SCH ×5 (03:19→22:45)
[2017-11-13 04:59] LABS: Baso # (Auto) 0.1 th/mm3 (0.0-0.2); Baso % (Auto) 1.2 % (0.0-2.0); Eos # (Auto) 0.2 th/mm3 (0.0-0.4); Eos % (Auto) 2.7 % (0.0-4.0); Hematocrit 40.2 % (39.0-51.0); Hemoglobin 13.9 gm/dL (13.0-17.0); Lymph # (Auto) 2.1 th/mm3 (1.0-4.8); Lymph % (Auto) 23.2 % (9.0-44.0); Mean Corpuscular HGB Conc 34.6 % (32.0-36.0); Mean Corpuscular Hemoglobin 33.2 pg (27.0-34.0); Mono # (Auto) 0.9 th/mm3 (0.0-0.9); Mono % (Auto) 10.6 % (0.0-8.0); Neut # (Auto) 5.5 th/mm3 (1.8-7.7); Neut % (Auto) 62.3 % (16.0-70.0); Platelet Count 204 th/mm3 (150-450); Red Blood Count 4.19 mil/mm3 (4.50-5.90); Red Cell Distribution Width 12.6 % (11.6-17.2); White Blood Count 8.9 th/mm3 (4.0-11.0)
[2017-11-13 05:24] LABS: Alanine Aminotransferase 24 U/L (12-78); Albumin 2.5 g/dL (3.4-5.0); Anion Gap 12 meq/L (5-15); Aspartate Aminotransferase 19 U/L (15-37); Blood Urea Nitrogen 15 mg/dL (7-18); Calcium 8.3 mg/dL (8.5-10.1); Carbon Dioxide 23.6 meq/L (21.0-32.0); Chloride 104 meq/L (98-107); Glomerular Filtration Rate Greater Than 89 mL/min (>89); Glucose,Random 288 mg/dL (74-106); Magnesium 1.8 mg/dL (1.5-2.5); Potassium 3.9 meq/L (3.5-5.1); Sodium 140 meq/L (136-145)
[2017-11-13 05:33] LABS: Alkaline Phosphatase 81 U/L (45-117); Free T4 (Free Thyroxine) 1.16 ng/dL (0.76-1.46); Total Protein 6.5 g/dL (6.4-8.2)
[2017-11-13] MEDS: Sod Chloride 0.9% Inj 1,000 ML IV.CONT SCH ×2 (06:06→13:53)
--- NOTE | 2017-11-13 06:41 | P.PNOP ---
Subjective Interval history: s/p right intertroch hip fx patient refusing surgery to treatment. has flight of ideas and keeps mentioning "[place]". states his pain is improving significantly with tylenol Physical Exam Vital signs: Vital Signs 11/12/17 08:00 11/12/17 12:00 11/12/17 16:00 Temperature 97.8 F 98.1 F 97.6 F Pulse Rate 94 H 102 H 98 H Respiratory Rate 18 16 18 Blood Pressure 164/99 H 167/79 H 138/76 Pulse Oximetry 96 94 L 11/12/17 20:00 11/13/17 00:00 Temperature 97.3 F L 98.5 F Pulse Rate 102 H 90 Respiratory Rate 18 17 Blood Pressure 137/87 150/82 H Pulse Oximetry 93 L 95 Intake & Output 11/12/17 11/12/17 11/13/17 06:59 18:59 06:59 Output Total 1325 / 1325 1350 / 1350 850 / 850 Balance -1325 / -1325 -1350 / -1350 -850 / -850 Weight 81 kg 81 kg Output: Urine 1325 / 1325 1350 / 1350 850 / 850 Other: Date of Last Bowel Movement 11/11/17 11/11/17 11/11/17 Narrative: RLE: moderate discomfort in thigh with movement of hip. no pain in knee or ankle. NVI Results - Labs CBC & Chem 7: 11/13/17 04:00 11/13/17 04:00 Laboratory Results - last 24 hr 11/13/17 11/13/17 04:00 04:00 WBC 8.9 RBC 4.19 L Hgb 13.9 Hct 40.2 MCV 96.0 MCH 33.2 MCHC 34.6 RDW 12.6 Plt Count 204 MPV 9.0 Neut % (Auto) 62.3 Lymph % (Auto) 23.2 [place] % (Auto) 10.6 H Eos % (Auto) 2.7 Baso % (Auto) 1.2 Neut # (Auto) 5.5 Lymph # (Auto) 2.1 [place] # (Auto) 0.9 Eos # (Auto) 0.2 Baso # (Auto) 0.1 WBC Differential . Differential Comment Auto diff final Sodium 140 Potassium 3.9 Chloride 104 Carbon Dioxide 23.6 Anion Gap 12 BUN 15 Creatinine 0.69 Estimated GFR Greater than 89 Random Glucose 288 H Calcium 8.3 L Phosphorus 3.0 Magnesium 1.8 Total Bilirubin 0.7 AST 19 ALT 24 Alkaline Phosphatase 81 Total Protein 6.5 D Albumin 2.5 L TSH 1.250 Free T4 1.16 Assessment and Plan - Assessment and Plan Right intertrochanteric femur fracture - Continues to refuse surgery - Awaiting social work to proceed with assignment of state designated healthcare surrogate for decision making - Awaiting Psych for capacity evaluation - Orthopedics to plan for right hip ORIF, pending receipt of informed consent. - Strict NWB RLE - DVT ppx - Multimodal pain control -patient still refusing. informed him of risks of nonop treatment. will plan on nonop care until psych eval or consents can be obtained
[2017-11-13] MEDS: Senna/Docusate Sodium 8.6/50 MG Tablet PO SCH ×2 (08:34→21:04)
[2017-11-13] MEDS: Acetaminophen 325 MG Tablet PO PRN ×2 (09:07→18:10)
--- NOTE | 2017-11-13 11:51 | P.PNIM ---
Subjective Interval history: Mr. Fitch is a 72 yo M with no reported PMH schizoaffective disorder who presented to [facility] ED from [facility] after reported fall injury 3 days prior. Patient states that he tripped on a slipper and his right leg was bent resulted in him falling. Patient reports immediate knowledge of injury; he was able to crawl into bed and stayed there for ~2 days hoping his pain would improve. Patient was then unable to stand when helped by staff so was taken to hospital. He reports pain when standing but that he felt good last night so he thought he was improving. Patient denies medical conditions. No reported head injury from fall; he states that it was from tripping. Patient does not report chest pain, shortness of breath, abdominal pain, abnormal urination, or abnormal BM. 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 He generally does well and doesn't need assistance from staff PMH- schizoaffective disorder PSH- L humerus fracture Allergies- NKDA Meds- None; occasional ASA 9-22 Mr. Fitch was afebrile with mild tachycardia overnight; otherwise stable VS. US of lower extremities demonstrated DVT. Patient reports that he has refused surgery and that he is sure. He also declines treatment of DVT, stating that it will go away. Patient was told the risks of complication including but still declines. Patient also stated that he wanted me to call the social security office or find and "honest copy machine operator" to give them his SS digits to confirm that he is a billionaire, helped the [employer], and saved [place]. Patient requests a diet but declines other treatment. He states his leg pain is controlled. 9-23 patient has flight of ideas. Is acutely bipolar and manic and schizophrenic Await psychiatry Patient is refusing all Lovenox and any other medications Has positive DVT has right hip fracture that needs repair that he is refusing Have discussed with patient and RN and case management NEEDS SURGERY AND TREATMENT FOR DVT NEEDS PSYCHIATRIC EVALUATION 9-24 SEEN BY PSYCHIATRY NEEDS SURGERY WILL HAVE TO SIGN FOR HIM TO HAVE SURGERY DOES NOT HAVE A GUARDIAN AT THIS TIME HAS MEDICAL NECESSITY FOR SURGERY DUE TO WORSENING RISK OF DUE TO NOT HAVING SURGERY AM LABS Physical Exam Vital signs: Vital Signs 11/12/17 12:00 11/12/17 16:00 11/12/17 20:00 Temperature 98.1 F 97.6 F 97.3 F L Pulse Rate 102 H 98 H 102 H Respiratory Rate 16 18 18 Blood Pressure 167/79 H 138/76 137/87 Pulse Oximetry 96 94 L 93 L 11/13/17 00:00 11/13/17 08:00 Temperature 98.5 F 98 F Pulse Rate 90 110 H Respiratory Rate 17 18 Blood Pressure 150/82 H 140/81 Pulse Oximetry 95 96 Intake & Output 11/12/17 11/13/17 11/13/17 18:59 06:59 18:59 Output Total 1350 / 1350 850 / 850 Balance -1350 / -1350 -850 / -850 Weight 81 kg 81 kg Output: Urine 1350 / 1350 850 / 850 Other: Date of Last Bowel Movement 11/11/17 11/11/17 11/11/17 Weight On Admission 81 kg Narrative: Gen: NAD Skin: No visible lesions HEENT: EOMI; PERRLA. Cardiovascular: Regular rate and rhythm; normal perfusion. Respiratory: CTAB; normal rate Abdominal: Soft, nontender, nondistended. Normal BS Ext: Grossly normal ROM and motor function of upper extremities> RLE extended; ROM of RLE not assessed. No pain at rest. R LE swelling Neuro: Oriented to place, person, time. Grossly normal CN. Grossly normal peripheral motor/sensory function Psych: Patient would answer questions directly when asked but would have tangential thoughts and delusions of grandeur Major flight of ideas Insight and judgment is nonexistent Mood and behavior is inappropriate Results - Labs CBC & Chem 7: 11/13/17 04:00 11/13/17 04:00 Laboratory Results - last 24 hr 11/13/17 11/13/17 04:00 04:00 WBC 8.9 RBC 4.19 L Hgb 13.9 Hct 40.2 MCV 96.0 MCH 33.2 MCHC 34.6 RDW 12.6 Plt Count 204 MPV 9.0 Neut % (Auto) 62.3 Lymph % (Auto) 23.2 Sharp % (Auto) 10.6 H Eos % (Auto) 2.7 Baso % (Auto) 1.2 Neut # (Auto) 5.5 Lymph # (Auto) 2.1 Sharp # (Auto) 0.9 Eos # (Auto) 0.2 Baso # (Auto) 0.1 WBC Differential . Differential Comment Auto diff final Sodium 140 Potassium 3.9 Chloride 104 Carbon Dioxide 23.6 Anion Gap 12 BUN 15 Creatinine 0.69 Estimated GFR Greater than 89 Random Glucose 288 H Calcium 8.3 L Phosphorus 3.0 Magnesium 1.8 Total Bilirubin 0.7 AST 19 ALT 24 Alkaline Phosphatase 81 Total Protein 6.5 D Albumin 2.5 L TSH 1.250 Free T4 1.16 Assessment and Plan - Assessment (1) Closed hip fracture requiring operative repair Code(s): S72.009A - Fracture of unspecified part of neck of unspecified femur, initial encounter for closed fracture Status: Acute (2) Fall Code(s): W19.XXXA - Unspecified fall, initial encounter Status: Acute (3) DVT (deep venous thrombosis) Code(s): I82.409 - Acute embolism and thrombosis of unspecified deep veins of unspecified lower extremity Status: Acute (4) Schizoaffective disorder Code(s): F25.9 - Schizoaffective disorder, unspecified Status: Acute - Plan Mr. Fitch is a 72 yo M with: Right hip fracture Impression: Mechanical fall resulting in R hip fracture 3 days prior. Inability to bear weight afterwards; patient has remained in bed since fracture. Hip XR on admission demonstrating intertrochanteric fracture Per discussion with Orthopedic surgery, patient initially demonstrated knowledge of risks/benefits and elected to proceed; patient subsequently changed mind and had flight of ideas -Orthopedic surgery consulted -Case management and Psychiatry consulted to establish whether patient has capacity -Will make nonweightbearing on RLE currently -Morphine 2mg IV q4hrs for pain control -will give diet and defer surgical plans until capacity determined -We will need surgery patient does not understand the concept-will see what psychiatry has to offer Psychiatric illness Impression: flight of ideas, delusions of grandeur intermittently. Reported PMH of schizophrenia. Neurologic exam normal; oriented -Will call patient's [facility] to get further care details -Psychiatry consulted --await their help with his acute psychosis WILL SIGN FOR HIM TO HAVE SURGERY DVT Impression: RLE DVT on Doppler US. Tachycardic with immobility. Patient declines treatment at this time -Psych evaluation for capacity Presurgical evaluation Impression: No reported PMH of cardio/pulmonary/renal disease. Mild sinus tachycardia on EKG (HR 108). 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 AND CASE MANAGEMENT WILL SIGN FOR HIM TO HAVE SURGERY DVT PPX -SCD's -Will need therapeutic anticoagulation and/or IVC filter based on surgery plans since has DVT Code Status: FULL CODE Discussed Condition With: DAVE RN AND PT AND CM Discharge Planning: Await psychiatric help as well as orthopedic help regarding his right hip fracture will also need chronic anticoagulation or an IVC filter (1) Closed hip fracture requiring operative repair Qualifiers: Encounter type: initial encounter Laterality: right Qualified Code(s): S72.001A - Fracture of unspecified part of neck of right femur, initial encounter for closed fracture (2) Fall Qualifiers: Encounter type: initial encounter Qualified Code(s): W19.XXXA - Unspecified fall, initial encounter
--- NOTE | 2017-11-13 13:05 | P.CONPSY ---
Provisional Diagnosis Admission Date: November 10, 2017 15:43 [place] I.: Schizoaffective disorder, bipolar type vs schizophrenia [place] II.: Deferred [place] III.: Hip fracture [place] IV.: Poor family support, chronic mental illness, hip fracture, no psychotropic medications [place] V.: 40 History of Present Illness Primary Care Provider: UNKNOWN Chief Complaint: Psychosis History of Present Illness: The patient is a 72-year-old man, domiciled in [facility], single, unemployed, supported by [facility], unknown by our service, with a psychiatric history of schizoaffective disorder, no known psychiatric hospitalizations, no suicidal attempts, the patient is not in a psychotropic regimen at this moment, without no significant medical history, who came to the hospital after reported fall injury 3 days prior. Patient states that he tripped on a slipper and his right leg was bent resulted in him falling. Patient reports immediate knowledge of injury; he was able to crawl into bed and stayed there for ~2 days hoping his pain would improve. Patient was then unable to stand when helped by staff so was taken to hospital. He reports pain when standing but that he felt good last night so he thought he was improving. Patient is admitted with right hip fracture. Impression: Mechanical fall resulting in R hip fracture 3 days prior. Inability to bear weight afterwards; patient has remained in bed since fracture. Hip XR on admission demonstrating intertrochanteric fracture Per discussion with Orthopedic surgery, patient initially demonstrated knowledge of risks/benefits and elected to proceed; patient subsequently changed mind and had flight of ideas. He also is been treated for tachycardia. The patient was consulted to psychiatry to assess his decision-making capacity to refuse treatment. The chart was reviewed. I have obtained collateral information from [facility]. I have spoken with Thais, which is the patient's coordinator. She reports that the patient has history of schizoaffective disorder, he has been living for 15 years in the residential facility, but he had never received it psychiatric treatment. She reports that the patient has been doing quite well there, he is a chronic psychotic person that does not cause any problem. He has always refused psychiatric treatment, and he has never needed to be on the [place] act for dangerous behavior or thought process. There is no family member available at this moment. The patient does not have any medical condition either. On my psychiatric evaluation today I find a patient that is poorly cooperative, irritable, oppositional and resistant to the evaluation. He says that he is not going to talk with a psychiatrist because he does not have a psychiatric illness. He says that if I want to speak with him and need to speak with a software validation engineer first in [employer]. The patient is very paranoid, he sees very suspicious and internally preoccupied, he says that he does not trust anybody here. And he also says that he is connected with the [facility] and he is connected with the head of the [facility]. The patient reports that he fell, he broke his hip, but he does not want to have any surgery. However, he was not able to tell me the reason for his refusal. And he was not able to tell me the consequences of this decision. The patient is fully oriented x3, there is no fluctuation of consciousness, there is no attention deficit at this moment. He denies suicidal and homicidal ideation, he denies visual and auditory hallucinations. PPHx: Schizoaffective disorder, no previous known hospitalizations, no previous suicide attempts, the patient is not in treatment PMHx: No significant medical history Substance Hx: Patient denies the use of illegal drugs or alcohol Family: He has a brother with schizophrenia Social Hx: The patient was born and raised in [place], he lives in [facility], he is single, unemployed, supported by [facility], his highest level of education is some college Review of Systems All other systems reviewed negative except as stated in HPI Psychiatric: Reports behavioral changes, Reports irritability, Reports paranoia PMFSH - History History Provided By: Patient - Medical History Medical History: Medical History (Last Reviewed 11/13/17 @ 07:54 by Cynthia Gary) Patient denies medical problems - Surgical History Surgical History: Surgical History (Last Reviewed 11/12/17 @ 09:28 by Dennys Lozano) No history of previous surgery - Tobacco History Second Hand Smoke Exposure: No Tobacco Use In Past 30 Days: No Smoking Status: Former smoker Tobacco Type: Cigarettes - Alcohol History How Often Do You Have a Drink Containing Alcohol: Never - Substance Use History Substance History: No History of Abuse - Travel History Recent Travel in the [facility] Within the Last 8 Weeks: No - Immunization History Tetanus Immunization: Unsure Hx Influenza Vaccine This Season: No Medications and Allergies Active Medications: Active Medications Acetaminophen (Tylenol) 650 mg PO Q4H PRN PRN Reason: Temp > 100.4 Last Admin: 11/13/17 09:07 Dose: 650 mg Dextrose (D50w Vial) 50 ml IV.PUSH UNSCH PRN PRN Reason: PER HYPOGLYCEMIA PROTOCOL Enalaprilat (Vasotec Inj) 1.25 mg IV.PUSH Q8H PRN PRN Reason: SBP>180, DBP>95 Glucagon (Glucagon Inj) 1 mg OTHER PRN PRN PRN Reason: for Hypoglycemia Protocol Sodium Chloride (Ns Inj) 1,000 mls @ 100 mls/hr IV.CONT .Q10H TIARA Last Admin: 11/13/17 06:06 Dose: Not Given Sodium Chloride (Ns Inj) 500 mls @ 30 mls/hr IV.SIG .Q10H TIARA Last Admin: 11/11/17 10:41 Dose: Not Given Insulin Aspart (Novolog Insulin Correctional Sugar Inj) 0 unit SQ ACHS AND 3AM TIARA; Protocol Last Admin: 11/13/17 11:10 Dose: Not Given Morphine Sulfate (Morphine Inj) 2 mg IV.PUSH Q4H PRN PRN Reason: PAIN SCALE 6 TO 10 Ondansetron HCl (Zofran Inj) 4 mg IV.PUSH Q6H PRN PRN Reason: NAUSEA OR VOMITING Senna/Docusate Sodium (Ness-Colace) 1 tab PO BID TIARA Last Admin: 11/13/17 08:34 Dose: Not Given Sodium Chloride (Ns Flush) 2 ml IV.FLUSH PRN PRN PRN Reason: FLUSH AFTER USING IV ACCESS Allergies Allergy/AdvReac Type Severity Reaction Status Date / Time No Known Allergies Allergy Verified 11/10/17 20:57 Home Medications Medication Instructions Recorded Confirmed Type No Known Home Medications 11/10/17 11/10/17 History Exam Vital signs: Vital Signs 11/12/17 16:00 11/12/17 20:00 11/13/17 00:00 Temperature 97.6 F 97.3 F L 98.5 F Pulse Rate 98 H 102 H 90 Respiratory Rate 18 18 17 Blood Pressure 138/76 137/87 150/82 H Pulse Oximetry 94 L 93 L 95 11/13/17 08:00 Temperature 98 F Pulse Rate 110 H Respiratory Rate 18 Blood Pressure 140/81 Pulse Oximetry 96 Intake & Output 11/12/17 11/13/17 11/13/17 18:59 06:59 18:59 Output Total 1350 / 1350 850 / 850 Balance -1350 / -1350 -850 / -850 Weight 81 kg 81 kg Output: Urine 1350 / 1350 850 / 850 Other: Date of Last Bowel Movement 11/11/17 11/11/17 11/11/17 Weight On Admission 81 kg Narrative: No tremors, no EPS, no catatonia, no psychomotor agitation or retardation present - Constitutional mild distress - Routine HEENT Exam Head: Present: normocephalic, atraumatic Eye: Present: EOMI, PERRL ENT: Present: mucous membranes moist Mental Status Examination Appearance: Disheveled Consciousness: Alert Orientation: x4 Speech: Rapid Language: Adequate Fund of Knowledge: Adequate Attention and Concentration: Adequate Memory: Unremarkable Mood: Angry Affect: Irritable Thought Process & Associations: Loose associations, Tangential Thought Content: Bizarre thinking Hallucination Type: None Delusion Type: Paranoid Suicidal Ideation: No Suicidal Plan: No Suicidal Intention: No Homicidal Ideation: No Homicidal Plan: No Homicidal Intention: No Insight: Poor Judgment: Poor Assessment and Plan - Assessment (1) Schizoaffective disorder Code(s): F25.9 - Schizoaffective disorder, unspecified Status: Acute - Plan Plan: Estimated LOS: [] days On my psychiatric evaluation today I find a patient that is resistant, oppositional, visibly upset, at the beginning refusing to cooperate with a psychiatric assessment. The patient reports that he does not need to speak with a psychiatrist. He presents with boby loosening of associations, paranoid ideation, grandiose delusions, flight of ideas, but he is completely oriented x3 without any attention deficit. He denies suicidal and homicidal ideation, denies visual and auditory hallucinations. This is a patient with a psychiatric history of schizoaffective disorder, he does not have any hospitalization, no suicidal attempts, he has been living in [facility] for 15 years and has not needed psychotropic medications. At this moment he seems to be acutely psychotic, he is refusing treatment and surgery, he is unable to verbalize a rational choice, unable to verbalize a even a fair understanding and appreciation of current medical situation. For this reason the patient does not have decision-making capacity to refuse treatment at the moment. There is no any identifiable healthcare by proxy or surrogate decision maker at the moment. I would recommend a consult to palliative care to help with goals of care and also with finding a decision maker. Patient definitely needs psychotropic medication for psychosis. I will start Seroquel 25 mg bid. Also will order Haldol 1 mg every 8 hours IM as needed aggressive behavior and agitation. QTc is 428. Patient will benefit of psychiatric hospitalization once medically stable. I will follow-up. Justification for Continued Inpatient Stay: Patient does not have decision-making capacity to refuse treatment at this moment. He may benefit of psychiatric admission after medical clearance.
[2017-11-13 22:37] LABS: Hemoglobin A1c 12.2 % (4.3-6.0)
[2017-11-14] MEDS ORDERED: Chlorhexidine Gluconate 2% 1 Pack (2 Cloths) TOPICAL ONE (01:34)
[2017-11-14] MEDS ORDERED: Sodium Chlor 0.9% Inj 500 ML IV.SIG SCH (02:00)
[2017-11-14] MEDS: Sod Chloride 0.9% Inj 1,000 ML IV.CONT SCH ×3 (02:45→21:20)
[2017-11-14] MEDS: Insulin NovoLOG Aspart Correctional Sugar Inj SQ SCH ×5 (03:26→21:21)
[2017-11-14 06:20] LABS: Baso # (Auto) 0.1 th/mm3 (0.0-0.2); Baso % (Auto) 1.1 % (0.0-2.0); Eos # (Auto) 0.2 th/mm3 (0.0-0.4); Eos % (Auto) 1.8 % (0.0-4.0); Hematocrit 43.8 % (39.0-51.0); Hemoglobin 14.9 gm/dL (13.0-17.0); Lymph # (Auto) 1.9 th/mm3 (1.0-4.8); Mean Corpuscular HGB Conc 33.9 % (32.0-36.0); Mean Corpuscular Hemoglobin 32.6 pg (27.0-34.0); Mean Corpuscular Volume 96.3 fL (80.0-100.0); Mean Platelet Volume 8.6 fL (7.0-11.0); Mono # (Auto) 0.9 th/mm3 (0.0-0.9); Mono % (Auto) 10.4 % (0.0-8.0); Neut # (Auto) 5.4 th/mm3 (1.8-7.7); Neut % (Auto) 64.7 % (16.0-70.0); Platelet Count 239 th/mm3 (150-450); Red Blood Count 4.55 mil/mm3 (4.50-5.90); Red Cell Distribution Width 12.8 % (11.6-17.2); White Blood Count 8.4 th/mm3 (4.0-11.0)
--- NOTE | 2017-11-14 06:32 | P.PNOP ---
Subjective Interval history: s/p right intertroch fx states he is doing well. refusing surgery and does not want operation. states his hip is improving and that he can move it with no pain. <Vance Limon Last Filed: 11/14/17 06:29> Physical Exam Vital signs: Vital Signs 11/13/17 08:00 11/13/17 12:00 11/13/17 16:35 Temperature 98 F 98.5 F Pulse Rate 110 H 103 H Respiratory Rate 18 17 Blood Pressure 140/81 187/95 H 185/86 H Pulse Oximetry 96 95 93 L 11/13/17 20:00 11/14/17 00:00 11/14/17 04:00 Temperature 97.8 F 98.2 F 98.6 F Pulse Rate 99 H 90 105 H Respiratory Rate 17 16 16 Blood Pressure 122/59 L 140/74 157/89 H Pulse Oximetry 94 L 96 96 Intake & Output 11/13/17 11/13/17 11/14/17 06:59 18:59 06:59 Output Total 850 / 850 800 / 800 Balance -850 / -850 -800 / -800 Weight 81 kg 81 kg Output: Urine 850 / 850 800 / 800 Other: Date of Last Bowel Movement 11/11/17 11/11/17 11/11/17 # Bowel Movements 1 Weight On Admission 81 kg Narrative: RLE: no pain with active motion of hip to 45deg flexion. nvi distally <Vance Limon - Last Filed: 11/14/17 06:29> Vital signs: Vital Signs 11/13/17 12:00 11/13/17 16:35 11/13/17 20:00 Temperature 98.5 F 97.8 F Pulse Rate 103 H 99 H Respiratory Rate 17 17 Blood Pressure 187/95 H 185/86 H 122/59 L Pulse Oximetry 95 93 L 94 L 11/14/17 00:00 11/14/17 04:00 Temperature 98.2 F 98.6 F Pulse Rate 90 105 H Respiratory Rate 16 16 Blood Pressure 140/74 157/89 H Pulse Oximetry 96 96 Intake & Output 11/13/17 11/14/17 11/14/17 18:59 06:59 18:59 Intake Total 120 / 120 Output Total 2099 / 2099 Balance -1979 / Weight 81 kg 67.2 kg Intake: Oral 120 / 120 Output: Urine 2100 / 2100 Other: Date of Last Bowel Movement 11/11/17 11/11/17 11/11/17 # Bowel Movements 1 Weight On Admission 81 kg <Abel Gomez - Last Filed: 11/14/17 10:01> Vital signs: Vital Signs 11/13/17 12:00 11/13/17 16:35 11/13/17 20:00 Temperature 98.5 F 97.8 F Pulse Rate 103 H 99 H Respiratory Rate 17 17 Blood Pressure 187/95 H 185/86 H 122/59 L Pulse Oximetry 95 93 L 94 L 11/14/17 00:00 11/14/17 04:00 Temperature 98.2 F 98.6 F Pulse Rate 90 105 H Respiratory Rate 16 16 Blood Pressure 140/74 157/89 H Pulse Oximetry 96 96 Intake & Output 11/13/17 11/14/17 11/14/17 18:59 06:59 18:59 Intake Total 120 / 120 Output Total 2100 / 2100 Balance -1979 / -1979 Weight 81 kg 67.2 kg Intake: Oral 120 / 120 Output: Urine 2099 2100 Other: Date of Last Bowel Movement 11/11/17 11/11/17 11/11/17 # Bowel Movements 1 Weight On Admission 81 kg <Anshu Gamble - Last Filed: 11/14/17 10:17> Results - Labs CBC & Chem 7: 11/14/17 05:52 11/13/17 04:00 Laboratory Results - last 24 hr 11/13/17 11/14/17 11/14/17 04:00 05:52 05:52 WBC 8.4 RBC 4.55 Hgb 14.9 Hct 43.8 MCV 96.3 MCH 32.6 MCHC 33.9 RDW 12.8 Plt Count 239 MPV 8.6 Neut % (Auto) 64.7 Lymph % (Auto) 22.0 [place] % (Auto) 10.4 H Eos % (Auto) 1.8 Baso % (Auto) 1.1 Neut # (Auto) 5.4 Lymph # (Auto) 1.9 [place] # (Auto) 0.9 Eos # (Auto) 0.2 Baso # (Auto) 0.1 WBC Differential . Differential Comment Auto diff final Hemoglobin A1c 12.2 H Blood Type A Positive <Vance Limon - Last Filed: 11/14/17 06:29> - Labs CBC & Chem 7: 11/14/17 05:52 11/14/17 05:52 Laboratory Results - last 24 hr 11/13/17 11/14/17 11/14/17 04:00 05:52 05:52 WBC 8.4 RBC 4.55 Hgb 14.9 Hct 43.8 MCV 96.3 MCH 32.6 MCHC 33.9 RDW 12.8 Plt Count 239 MPV 8.6 Neut % (Auto) 64.7 Lymph % (Auto) 22.0 [place] % (Auto) 10.4 H Eos % (Auto) 1.8 Baso % (Auto) 1.1 Neut # (Auto) 5.4 Lymph # (Auto) 1.9 [place] # (Auto) 0.9 Eos # (Auto) 0.2 Baso # (Auto) 0.1 WBC Differential . Differential Comment Auto diff final Sodium 139 Potassium 4.2 Chloride 104 Carbon Dioxide 23.2 Anion Gap 12 BUN 16 Creatinine 0.73 Estimated GFR Greater than 89 Random Glucose 309 H Hemoglobin A1c 12.2 H Calcium 8.6 Phosphorus 2.9 Magnesium 2.0 Total Bilirubin 0.8 AST 16 ALT 25 Alkaline Phosphatase 93 Total Protein 7.0 Albumin 2.8 L Blood Type Antibody Screen 11/14/17 05:52 WBC RBC Hgb Hct MCV MCH MCHC RDW Plt Count MPV Neut % (Auto) Lymph % (Auto) [place] % (Auto) Eos % (Auto) Baso % (Auto) Neut # (Auto) Lymph # (Auto) [place] # (Auto) Eos # (Auto) Baso # (Auto) WBC Differential Differential Comment Sodium Potassium Chloride Carbon Dioxide Anion Gap BUN Creatinine Estimated GFR Random Glucose Hemoglobin A1c Calcium Phosphorus Magnesium Total Bilirubin AST ALT Alkaline Phosphatase Total Protein Albumin Blood Type A Positive Antibody Screen Negative - Imaging Impressions Hip X-Ray 11/14/17 00:00 CONCLUSION: No significant change in the alignment or position of the oblique fracture through the trochanteric region of the proximal right femur. <Abel Gomez - Last Filed: 11/14/17 10:01> - Labs CBC & Chem 7: 11/14/17 05:52 11/14/17 05:52 Laboratory Results - last 24 hr 11/13/17 11/14/17 11/14/17 04:00 05:52 05:52 WBC 8.4 RBC 4.55 Hgb 14.9 Hct 43.8 MCV 96.3 MCH 32.6 MCHC 33.9 RDW 12.8 Plt Count 239 MPV 8.6 Neut % (Auto) 64.7 Lymph % (Auto) 22.0 [place] % (Auto) 10.4 H Eos % (Auto) 1.8 Baso % (Auto) 1.1 Neut # (Auto) 5.4 Lymph # (Auto) 1.9 [place] # (Auto) 0.9 Eos # (Auto) 0.2 Baso # (Auto) 0.1 WBC Differential . Differential Comment Auto diff final Sodium 139 Potassium 4.2 Chloride 104 Carbon Dioxide 23.2 Anion Gap 12 BUN 16 Creatinine 0.73 Estimated GFR Greater than 89 Random Glucose 309 H Hemoglobin A1c 12.2 H Calcium 8.6 Phosphorus 2.9 Magnesium 2.0 Total Bilirubin 0.8 AST 16 ALT 25 Alkaline Phosphatase 93 Total Protein 7.0 Albumin 2.8 L Blood Type Antibody Screen 11/14/17 05:52 WBC RBC Hgb Hct MCV MCH MCHC RDW Plt Count MPV Neut % (Auto) Lymph % (Auto) [place] % (Auto) Eos % (Auto) Baso % (Auto) Neut # (Auto) Lymph # (Auto) [place] # (Auto) Eos # (Auto) Baso # (Auto) WBC Differential Differential Comment Sodium Potassium Chloride Carbon Dioxide Anion Gap BUN Creatinine Estimated GFR Random Glucose Hemoglobin A1c Calcium Phosphorus Magnesium Total Bilirubin AST ALT Alkaline Phosphatase Total Protein Albumin Blood Type A Positive Antibody Screen Negative - Imaging Impressions Hip X-Ray 11/14/17 00:00 CONCLUSION: No significant change in the alignment or position of the oblique fracture through the trochanteric region of the proximal right femur. <Anshu Gamble - Last Filed: 11/14/17 10:17> Assessment and Plan - Assessment and Plan Right intertrochanteric femur fracture - psych eval yesterday determined that patient does not have medical decision making capacity. -however, patient is moving hip today with no pain. -will order portable xray today of right hip to eval fracture alignment. if displaced, will plan on surgery this AM for fixation -consents are already signed by Tye and Dr Rasmussen <Vance Limon - Last Filed: 11/14/17 06:29> - Assessment and Plan X-rays are obtained which show displacement of intertrochanteric hip fracture. Due to the severity of the fracture and paired with a positive DVT, surgical intervention is necessary. Patient is not terminal and would benefit from reduction of the intertrochanteric femur fracture and have intramedullary quin fixation. As confirmed by psychiatric consult the patient is not deemed competent to deny or consent for surgical intervention. It is medically necessary that we continue to proceed forward with reduction of his right hip and intramedullary quin fixation. Dr. Gamble and anesthesia will cosign for surgical and anesthesia consents. We will continue to proceed with surgery today per Tye <Abel Gomez - Last Filed: 11/14/17 10:01> - Assessment and Plan Jimi has a displaced intertrochanteric hip fracture. He has been seen and evaluated by psychiatry and is not competent for decision making at this time. Case management has attempted to contact family but has been unsuccessful. At this point surgery is both medically necessary and medically urgent. X-rays today reveal that fracture has displaced further. Without surgery patient will be unable to ambulate and will have increased risk of pressure ulcers, pneumonias, DVTs, and PEs secondary to immobility. I will plan on surgery today. <Anshu Gamble - Last Filed: 11/14/17 10:17>
[2017-11-14 06:47] LABS: Alanine Aminotransferase 25 U/L (12-78); Albumin 2.8 g/dL (3.4-5.0); Anion Gap 12 meq/L (5-15); Aspartate Aminotransferase 16 U/L (15-37); Blood Urea Nitrogen 16 mg/dL (7-18); Calcium 8.6 mg/dL (8.5-10.1); Carbon Dioxide 23.2 meq/L (21.0-32.0); Chloride 104 meq/L (98-107); Glomerular Filtration Rate Greater Than 89 mL/min (>89); Glucose,Random 309 mg/dL (74-106); Phosphorus 2.9 mg/dL (2.5-4.9); Potassium 4.2 meq/L (3.5-5.1); Sodium 139 meq/L (136-145)
[2017-11-14 06:49] LABS: Alkaline Phosphatase 93 U/L (45-117)
[2017-11-14] MEDS: Senna/Docusate Sodium 8.6/50 MG Tablet PO SCH ×2 (08:30→21:21)
--- NOTE | 2017-11-14 08:47 | XR ---
EXAM DATE: 11/14/2017 8:40 AM EDT AGE/SEX: 72 years / Male INDICATIONS: Right hip fracture. Patient fell. CLINICAL DATA: This is the patient's initial encounter. Patient reports that signs and symptoms have been present for 4 - 6 days and indicates a pain score of 0/10. MEDICAL/SURGICAL HISTORY: None. None. COMPARISON: [facility] [place], HIP RIGHT 2V, 11/10/2017. . FINDINGS: There continues to be a fracture through the trochanteric region of the proximal right femur. The fem oral head remains within the acetabulum. Is been no change in alignment or position of the fracture f ragments compared to the earlier study. The bony structures of the pelvis are grossly intact. CONCLUSION: No significant change in the alignment or position of the oblique fracture through the trochanteric r egion of the proximal right femur. Electronically signed by: Shahriar Todd MD 11/14/2017 8:46 AM EDT
[2017-11-14] MEDS ORDERED: Lidocaine PF 1% Inj 5 ML Syringe OTHER ONE (11:45)
[2017-11-14] MEDS ORDERED: Neostigmine Inj 5 MG/5 ML Syringe IV.PUSH ONE (11:45)
[2017-11-14] MEDS ORDERED: Glycopyrrolate Inj 1 MG/5 ML Syringe IV.PUSH ONE (11:45)
[2017-11-14] MEDS ORDERED: Phenylephrine/NS 1000 MCG/10ML Syringe IV.PUSH ONE (11:45)
[2017-11-14] MEDS ORDERED: Bupivacaine/Epinephrine 0.5% Inj 50 ML Vial ONE (12:23)
[2017-11-14] MEDS ORDERED: Post-op Orders (for Pharmacy) OTHER STA (12:54)
[2017-11-14] MEDS ORDERED: Morphine Inj 4 MG/ML Vial IV.PUSH PRN (12:54)
[2017-11-14] MEDS ORDERED: QUEtiapine 25 MG Tablet PO SCH (13:00)
--- NOTE | 2017-11-14 13:00 | P.OP ---
- Preoperative Diagnosis (1) Displaced intertrochanteric fracture of right femur, initial encounter for closed fracture Date of procedure: 11/14/17 Procedure: Right hip reduction and intramedullary nail fixation Anesthesia: GETA Surgeon: Anshu Diaz MD Cow Buyer: NICOLAS Owen PA-C The surgical procedure was assisted by my physician press operator assistant. My P.A. presence was necessary throughout this case for the manipulation and positioning of the surgical extremity. My P.A. was assisting me throughout the duration of this procedure. The skill set of a physician press operator assistant was medically necessary to complete this procedure. During the surgical case the rn surgical pcu was working at the back table and the physician press operator assistant was directly assisting me. Operation and Findings: Implants used: Biomet 11 mm short troch nail Plan of activity: Weight-bear as tolerated Patient was seen and evaluated preoperatively. The patient has significant hip pain from intertrochanteric hip fracture. The risk and benefits of surgery were discussed in depth with the patient to include bleeding infection nonunion malunion and need for hip replacement painful hardware as well as medical competitions including but not stroke heart attack and . Patient was seen by psychiatry preoperatively. Patient was deemed incompetent to make decisions regarding his care. This case was discussed with Dr. Rasmussen, Dr. Schwartz, and Dr. Cody. This case was deemed medically necessary and medically urgent given the nature of his fracture. Operative site was marked. Patient was brought to the operating room and placed on fracture table. IV sedation was administered by anesthesiologist. Timeout procedure was performed. Hip and leg were prepped with alcohol followed by DuraPrep and draped in the usual sterile fashion. IV antibiotics were given prior to incision. Procedure began with reduction of fracture. Traction was applied. The leg was manipulated to achieve reduction. Excellent reduction was achieved. Fluoroscopy was used to confirm reduction. A three inch incision was made proximal to the trochanter. Subcutaneous tissue was dissected bluntly. Guidepin was placed at the tip of the trochanter and advanced into the femoral canal. Fluoroscopy confirmed appropriate guidepin placement. A opening reamer was placed over the guidepin. The nail was attached to the insertion handle. Nail was now placed through the tip of the trochanter into the femoral canal. Fluoroscopy confirmed appropriate nail placement. A second incision was made over the lateral thigh. Cannulas were placed through the insertion handle down to the femur. Guidepin was now placed through the femoral nail into the center of the femoral head. Fluoroscopy confirmed appropriate guidepin placement. Screw length was measured. Cannulated drill was placed over the guidepin. Appropriate length lag screw was now placed. Traction was released and compression was applied. The set screw was now tightened in dynamic mode. An additional anti-rotational screw was placed. Using the insertion handle as a guide a distal interlocking screw was drilled and placed. Final fluoroscopy revealed well aligned fracture with well-placed hardware. Incision was closed with 3-0 Vicryl and vince. Sterile dressings were applied. Patient was awakened and transferred to recovery room.
[2017-11-14] MEDS ORDERED: Haloperidol Inj 5 MG/ML Ampul IM PRN (13:03)
--- NOTE | 2017-11-14 13:17 | XR ---
EXAM DATE: 11/14/2017 12:00 AM EDT AGE/SEX: 72 years / Male INDICATIONS: ORIF right hip fracture. CLINICAL DATA: This is the patient's subsequent encounter. Patient reports that signs and symptoms h ave been present for 4 - 6 days and indicates a pain score of Nonresponsive. MEDICAL/SURGICAL HISTORY: Non-responsive. Non-responsive. COMPARISON: No prior exams available for comparison. FINDINGS: Intraoperative examination demonstrates interval placement of an intramedullary quin and dynamic compr ession screw across the patient's right femoral neck fracture. The hardware is in excellent position. The alignment of the fracture is excellent. CONCLUSION: Excellent alignment of the fracture post fixation. Electronically signed by: Pedro Luis Xavier MD 11/14/2017 1:15 PM EDT
[2017-11-14] MEDS ORDERED: fentaNYL Citrate Inj 100 MCG/2 ML Ampul ONE (13:21)
--- NOTE | 2017-11-14 13:40 | P.PNPSY ---
Subjective Remarks: The patient was seen today for psychiatric reevaluation. Patient was seen with medical student, MS3 Cole Balwinder, discussed with nurse in charge. Patient continues to be very oppositional, resistant, very rational and paranoid. The patient thinks that he owns the Tylenol patent, that we want to hurt him and he does not have any reason to be here and he does not have any injury in his body. The patient is very upset, stating that hungry and he needs to eat now. The patient is cognitively intact, he is fully oriented x3, he denies suicidal and homicidal ideation, denies visual and auditory hallucinations at the moment. Mental Status Examination Appearance: Disheveled Consciousness: Alert Orientation: x4 Speech: Rapid Language: Adequate Fund of Knowledge: Adequate Attention and Concentration: Adequate Memory: Unremarkable Mood: Angry Affect: Irritable Thought Process & Associations: Loose associations, Tangential Thought Content: Bizarre thinking Hallucination Type: None Delusion Type: Paranoid Suicidal Ideation: No Suicidal Plan: No Suicidal Intention: No Homicidal Ideation: No Homicidal Plan: No Homicidal Intention: No Insight: Poor Judgment: Poor Assessment and Plan - Assessment (1) Schizoaffective disorder Code(s): F25.9 - Schizoaffective disorder, unspecified Status: Acute - Plan Plan: I will start today Haldol 0.5 mg twice daily for psychosis and to prevent delirium. This patient has an elevated risk to delirium given his age, type of surgery and psychiatric history. I will also order Haldol 2 mg IM/IV every 8 hours as needed aggressive behavior and agitation. This patient is acutely psychotic, he needs to be admitted in psychiatry for stabilization and safety. I am Horner acting the patient. My suggestion is to place the patient in the Med[facility] unit once he is more medically appropriate. Justification for Continued Inpatient Stay: Patient needs psychiatric admission for stabilization and safety. He is a good candidate for [facility] unit
[2017-11-14] MEDS: Calcium/Vitamin D 250/125 MG Tablet PO SCH ×2 (13:55→17:23)
--- NOTE | 2017-11-14 14:53 | P.PNIM ---
Subjective Interval history: Mr. Fitch is a 72 yo M with no reported PMH schizoaffective disorder who presented to [place] ED from [facility] after reported fall injury 3 days prior. Patient states that he tripped on a slipper and his right leg was bent resulted in him falling. Patient reports immediate knowledge of injury; he was able to crawl into bed and stayed there for ~2 days hoping his pain would improve. Patient was then unable to stand when helped by staff so was taken to hospital. He reports pain when standing but that he felt good last night so he thought he was improving. Patient denies medical conditions. No reported head injury from fall; he states that it was from tripping. Patient does not report chest pain, shortness of breath, abdominal pain, abnormal urination, or abnormal BM. 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 He generally does well and doesn't need assistance from staff PMH- schizoaffective disorder PSH- L humerus fracture Allergies- NKDA Meds- None; occasional ASA 9-22 Mr. Fitch was afebrile with mild tachycardia overnight; otherwise stable VS. US of lower extremities demonstrated DVT. Patient reports that he has refused surgery and that he is sure. He also declines treatment of DVT, stating that it will go away. Patient was told the risks of complication including but still declines. Patient also stated that he wanted me to call the social security office or find and "honest gyroscopic engineering technician" to give them his SS digits to confirm that he is a billionaire, helped the [employer], and [place]. Patient requests a diet but declines other treatment. He states his leg pain is controlled. 9-23 patient has flight of ideas. Is acutely bipolar and manic and schizophrenic Await psychiatry Patient is refusing all Lovenox and any other medications Has positive DVT has right hip fracture that needs repair that he is refusing Have discussed with patient and RN and case management NEEDS SURGERY AND TREATMENT FOR DVT NEEDS PSYCHIATRIC EVALUATION 9-24 SEEN BY PSYCHIATRY NEEDS SURGERY WILL HAVE TO SIGN FOR HIM TO HAVE SURGERY DOES NOT HAVE A GUARDIAN AT THIS TIME HAS MEDICAL NECESSITY FOR SURGERY DUE TO WORSENING RISK OF DUE TO NOT HAVING SURGERY AM LABS 9- UNDERGOING SURGERY TODAY FOR RIGHT HIP REDUCTION AND INTRAMEDULLARY NAIL FIXATION TODAY TOLERATED PROCEDURE WELL SEEN BEFORE PROCEDURE WAS DONE AM LABS WILL NEED LOVENOX FOR DVTS Physical Exam Vital signs: Vital Signs 11/13/17 16:35 11/13/17 20:00 11/14/17 00:00 Temperature 98.5 F 97.8 F 98.2 F Pulse Rate 103 H 99 H 90 Respiratory Rate 17 17 16 Blood Pressure 185/86 H 122/59 L 140/74 Pulse Oximetry 93 L 94 L 96 11/14/17 04:00 11/14/17 08:00 11/14/17 11:45 Temperature 98.6 F 97.5 F L 97.6 F Pulse Rate 105 H 116 H 113 H Respiratory Rate 16 18 18 Blood Pressure 157/89 H 159/93 H 184/99 H Pulse Oximetry 96 94 L 96 11/14/17 13:34 Temperature 97.6 F Pulse Rate 96 H Respiratory Rate 18 Blood Pressure 122/69 Pulse Oximetry 95 Intake & Output 11/13/17 11/14/17 11/14/17 18:59 06:59 18:59 Intake Total 120 / 120 600 / 600 Output Total 2099 / 2100 Balance -1979 / -1979 570 / 570 Weight 81 kg 67.2 kg Intake: Oral 120 / 120 Anesthesia Amount 600 / 600 Output: Urine 2099 Estimated Blood Loss Other: Date of Last Bowel Movement 11/11/17 11/11/17 11/13/17 # Bowel Movements 1 Weight On Admission 81 kg Narrative: Gen: NAD Skin: No visible lesions HEENT: EOMI; PERRLA. Cardiovascular: Regular rate and rhythm; normal perfusion. Respiratory: CTAB; normal rate Abdominal: Soft, nontender, nondistended. Normal BS Ext: Grossly normal ROM and motor function of upper extremities> RLE extended; ROM of RLE not assessed. No pain at rest. R LE swelling Neuro: Oriented to place, person, time. Grossly normal CN. Grossly normal peripheral motor/sensory function Psych: Patient would answer questions directly when asked but would have tangential thoughts and delusions of grandeur Major flight of ideas Insight and judgment is nonexistent Mood and behavior is inappropriate Results - Labs CBC & Chem 7: 11/14/17 05:52 11/14/17 05:52 Laboratory Results - last 24 hr 11/13/17 11/14/17 11/14/17 04:00 05:52 05:52 WBC 8.4 RBC 4.55 Hgb 14.9 Hct 43.8 MCV 96.3 MCH 32.6 MCHC 33.9 RDW 12.8 Plt Count 239 MPV 8.6 Neut % (Auto) 64.7 Lymph % (Auto) 22.0 [place] % (Auto) 10.4 H Eos % (Auto) 1.8 Baso % (Auto) 1.1 Neut # (Auto) 5.4 Lymph # (Auto) 1.9 [place] # (Auto) 0.9 Eos # (Auto) 0.2 Baso # (Auto) 0.1 WBC Differential . Differential Comment Auto diff final Sodium 139 Potassium 4.2 Chloride 104 Carbon Dioxide 23.2 Anion Gap 12 BUN 16 Creatinine 0.73 Estimated GFR Greater than 89 Random Glucose 309 H Hemoglobin A1c 12.2 H Calcium 8.6 Phosphorus 2.9 Magnesium 2.0 Total Bilirubin 0.8 AST 16 ALT 25 Alkaline Phosphatase 93 Total Protein 7.0 Albumin 2.8 L Blood Type Antibody Screen 11/14/17 05:52 WBC RBC Hgb Hct MCV MCH MCHC RDW Plt Count MPV Neut % (Auto) Lymph % (Auto) [place] % (Auto) Eos % (Auto) Baso % (Auto) Neut # (Auto) Lymph # (Auto) [place] # (Auto) Eos # (Auto) Baso # (Auto) WBC Differential Differential Comment Sodium Potassium Chloride Carbon Dioxide Anion Gap BUN Creatinine Estimated GFR Random Glucose Hemoglobin A1c Calcium Phosphorus Magnesium Total Bilirubin AST ALT Alkaline Phosphatase Total Protein Albumin Blood Type A Positive Antibody Screen Negative - Imaging Impressions Hip X-Ray 11/14/17 00:00 CONCLUSION: No significant change in the alignment or position of the oblique fracture through the trochanteric region of the proximal right femur. Hip X-Ray 11/14/17 00:00 CONCLUSION: Excellent alignment of the fracture post fixation. Assessment and Plan - Assessment (1) Closed hip fracture requiring operative repair Code(s): S72.009A - Fracture of unspecified part of neck of unspecified femur, initial encounter for closed fracture Status: Acute (2) Fall Code(s): W19.XXXA - Unspecified fall, initial encounter Status: Acute (3) DVT (deep venous thrombosis) Code(s): I82.409 - Acute embolism and thrombosis of unspecified deep veins of unspecified lower extremity Status: Acute (4) Schizoaffective disorder Code(s): F25.9 - Schizoaffective disorder, unspecified Status: Deleted - Plan Mr. Fitch is a 72 yo M with: Right hip fracture Impression: Mechanical fall resulting in R hip fracture 3 days prior. Inability to bear weight afterwards; patient has remained in bed since fracture. Hip XR on admission demonstrating intertrochanteric fracture Per discussion with Orthopedic surgery, patient initially demonstrated knowledge of risks/benefits and elected to proceed; patient subsequently changed mind and had flight of ideas -Orthopedic surgery consulted -Case management and Psychiatry consulted to establish whether patient has capacity -Will make nonweightbearing on RLE currently -Morphine 2mg IV q4hrs for pain control -will give diet and defer surgical plans until capacity determined -We will need surgery patient does not understand the concept-will see what psychiatry has to offer Psychiatric illness Impression: flight of ideas, delusions of grandeur intermittently. Reported PMH of schizophrenia. Neurologic exam normal; oriented -Will call patient's [facility] to get further care details -Psychiatry consulted --await their help with his acute psychosis WILL SIGN FOR HIM TO HAVE SURGERY TO HAVE SURGERY TODAY DVT Impression: RLE DVT on Doppler US. Tachycardic with immobility. Patient declines treatment at this time -Psych evaluation for capacity Presurgical evaluation Impression: No reported PMH of cardio/pulmonary/renal disease. Mild sinus tachycardia on EKG (HR 108). CBC/BMP/Coagulation profile unremarkable with exception of glucose 323 -No contraindications to surgery seen -Will give low dose SS insulin/accuchecks due to hyperglycemia on admission Hyperglycemia possible diabetes we will check a hemoglobin A1c NONCOMPLIANCE DUE TO PSYCHIATRIC ISSUES NEEDS SURGERY DUE TO HIGH RISK OF IF NOT HAVING SURGERY ADVE RN AND PT AND OUTPATIENT PHYSICAL THERAPIST ASSISTANT AND CASE MANAGEMENT WILL SIGN FOR HIM TO HAVE SURGERY TO HAVE SURGERY 11-14 DVT PPX -SCD's -Will need therapeutic anticoagulation and/or IVC filter based on surgery plans since has DVT Code Status: FULL CODE Discussed Condition With: DAVE RN AND PT AND CM Discharge Planning: TO HAVE SURGERY TODAY (1) Closed hip fracture requiring operative repair Qualifiers: Encounter type: initial encounter Laterality: right Qualified Code(s): S72.001A - Fracture of unspecified part of neck of right femur, initial encounter for closed fracture (2) Fall Qualifiers: Encounter type: initial encounter Qualified Code(s): W19.XXXA - Unspecified fall, initial encounter
[2017-11-14] MEDS: Acetaminophen 325 MG Tablet PO PRN (16:13)
[2017-11-15] MEDS: Insulin NovoLOG Aspart Correctional Sugar Inj SQ SCH ×4 (03:34→21:01)
[2017-11-15] MEDS: Sod Chloride 0.9% Inj 1,000 ML IV.CONT SCH ×2 (06:45→18:22)
--- NOTE | 2017-11-15 07:28 | P.PNOP ---
Subjective Interval history: POD 1 s/p IMN right hip states does not want surgery. reports no pain in hip Physical Exam Vital signs: Vital Signs 11/14/17 08:00 11/14/17 11:45 11/14/17 13:09 Temperature 97.5 F L 97.6 F 97.6 F Pulse Rate 116 H 113 H 96 H Respiratory Rate 18 18 18 Blood Pressure 159/93 H 184/99 H 122/69 Pulse Oximetry 94 L 96 95 11/14/17 13:30 11/14/17 13:45 11/14/17 14:00 Temperature 97.6 F Pulse Rate 84 82 92 H Respiratory Rate 18 18 18 Blood Pressure 123/70 140/76 140/76 Pulse Oximetry 95 95 95 11/14/17 16:14 11/14/17 19:51 11/14/17 23:02 Temperature 97.5 F L 97.3 F L 98.4 F Pulse Rate 114 H 63 103 H Respiratory Rate 16 18 18 Blood Pressure 135/87 105/57 L 134/74 Pulse Oximetry 97 96 94 L 11/15/17 04:35 Temperature 97.6 F Pulse Rate 104 H Respiratory Rate 18 Blood Pressure 158/84 H Pulse Oximetry 94 L Intake & Output 11/14/17 11/15/17 11/15/17 18:59 06:59 18:59 Intake Total 600 / 600 560 / 560 Output Total 530 / 530 1800 / 1800 Balance 70 / 70 -1240 / -1240 Weight 69.9 kg Intake: IV 200 / 200 Ancef Inj 1,000 MG In NS Inj 200 / 200 100 ML @ 200 mls/hr IV.SIG Q8H [facility] Rx#:[id number] Oral 360 / 360 Anesthesia Amount 600 / 600 Output: Urine 500 / 500 1800 / 1800 Estimated Blood Loss 30 / 30 Other: Date of Last Bowel Movement 11/13/17 11/13/17 # Bowel Movements 0 Narrative: RLE: dressings clean and dry. intact. NVI. +restraints Results - Labs CBC & Chem 7: 11/14/17 05:52 11/14/17 05:52 Laboratory Results - last 24 hr 11/14/17 20:49 POC Glucose 361 H - Imaging Impressions Hip X-Ray 11/14/17 00:00 CONCLUSION: No significant change in the alignment or position of the oblique fracture through the trochanteric region of the proximal right femur. Hip X-Ray 11/14/17 00:00 CONCLUSION: Excellent alignment of the fracture post fixation. Assessment and Plan - Assessment and Plan 1) Right Intertroch Hip Fx s/p IMN - POD 1 -WBAT -daily dressing changes POD 2 -psych and med mgmt -CM for DC planning. SNF vs home -DVT prophylaxis -f/u joby Melo or [facility]LL[facility]MO in 2 weeks [facility] Prescription Drug Monitoring Database has been queried and verified prior to prescribing the controlled substance. Acute pain exception. This patient has normal, predicted, physiological, and time limited response to an adverse mechanical stimulus associated with surgery, trauma, or acute illness as described in my notes. There is a lack of alternative treatment options other than to include the prescribed narcotic treatment for this condition.
[2017-11-15 07:44] LABS: Baso # (Auto) 0.1 th/mm3 (0.0-0.2); Baso % (Auto) 0.5 % (0.0-2.0); Eos % (Auto) 0.1 % (0.0-4.0); Hematocrit 40.3 % (39.0-51.0); Hemoglobin 13.7 gm/dL (13.0-17.0); Lymph # (Auto) 1.7 th/mm3 (1.0-4.8); Mean Corpuscular Volume 97.1 fL (80.0-100.0); Mean Platelet Volume 8.7 fL (7.0-11.0); Mono # (Auto) 1.3 th/mm3 (0.0-0.9); Mono % (Auto) 12.2 % (0.0-8.0); Neut # (Auto) 7.5 th/mm3 (1.8-7.7); Neut % (Auto) 71.2 % (16.0-70.0); Platelet Count 206 th/mm3 (150-450); Red Blood Count 4.15 mil/mm3 (4.50-5.90); Red Cell Distribution Width 12.7 % (11.6-17.2); White Blood Count 10.6 th/mm3 (4.0-11.0)
[2017-11-15 08:07] LABS: Alanine Aminotransferase 22 U/L (12-78); Albumin 2.7 g/dL (3.4-5.0); Anion Gap 14 meq/L (5-15); Aspartate Aminotransferase 20 U/L (15-37); Blood Urea Nitrogen 18 mg/dL (7-18); Calcium 8.6 mg/dL (8.5-10.1); Carbon Dioxide 19.3 meq/L (21.0-32.0); Chloride 105 meq/L (98-107); Glomerular Filtration Rate Greater Than 89 mL/min (>89); Glucose,Random 266 mg/dL (74-106); Magnesium 2.1 mg/dL (1.5-2.5); Phosphorus 2.6 mg/dL (2.5-4.9); Potassium 4.2 meq/L (3.5-5.1); Sodium 138 meq/L (136-145)
[2017-11-15 08:10] LABS: Alkaline Phosphatase 87 U/L (45-117); Total Protein 6.7 g/dL (6.4-8.2)
[2017-11-15] MEDS: Acetaminophen 325 MG Tablet PO PRN ×2 (09:15→18:17)
[2017-11-15] MEDS: Senna/Docusate Sodium 8.6/50 MG Tablet PO SCH ×2 (11:00→20:59)
[2017-11-15] MEDS: Calcium/Vitamin D 250/125 MG Tablet PO SCH ×2 (11:00→18:22)
--- NOTE | 2017-11-15 12:48 | P.PNIM ---
Subjective Interval history: Mr. Fitch is a 72 yo M with no reported PMH schizoaffective disorder who presented to [place] ED from [facility] after reported fall injury 3 days prior. Patient states that he tripped on a slipper and his right leg was bent resulted in him falling. Patient reports immediate knowledge of injury; he was able to crawl into bed and stayed there for ~2 days hoping his pain would improve. Patient was then unable to stand when helped by staff so was taken to hospital. He reports pain when standing but that he felt good last night so he thought he was improving. Patient denies medical conditions. No reported head injury from fall; he states that it was from tripping. Patient does not report chest pain, shortness of breath, abdominal pain, abnormal urination, or abnormal BM. 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 He generally does well and doesn't need assistance from staff PMH- schizoaffective disorder PSH- L humerus fracture Allergies- NKDA Meds- None; occasional ASA 9-22 Mr. Fitch was afebrile with mild tachycardia overnight; otherwise stable VS. US of lower extremities demonstrated DVT. Patient reports that he has refused surgery and that he is sure. He also declines treatment of DVT, stating that it will go away. Patient was told the risks of complication including but still declines. Patient also stated that he wanted me to call the social security office or find and "honest copier repair technician" to give them his SS digits to confirm that he is a billionaire, helped the [employer], and [place]. Patient requests a diet but declines other treatment. He states his leg pain is controlled. 9-23 patient has flight of ideas. Is acutely bipolar and manic and schizophrenic Await psychiatry Patient is refusing all Lovenox and any other medications Has positive DVT has right hip fracture that needs repair that he is refusing Have discussed with patient and RN and case management NEEDS SURGERY AND TREATMENT FOR DVT NEEDS PSYCHIATRIC EVALUATION 9-24 SEEN BY PSYCHIATRY NEEDS SURGERY WILL HAVE TO SIGN FOR HIM TO HAVE SURGERY DOES NOT HAVE A GUARDIAN AT THIS TIME HAS MEDICAL NECESSITY FOR SURGERY DUE TO WORSENING RISK OF DUE TO NOT HAVING SURGERY AM LABS 11-14 UNDERGOING SURGERY TODAY FOR RIGHT HIP REDUCTION AND INTRAMEDULLARY NAIL FIXATION TODAY TOLERATED PROCEDURE WELL SEEN BEFORE PROCEDURE WAS DONE AM LABS WILL NEED LOVENOX FOR DVTS 11-15 HAD TO HAVE SOPHY YESTERDAY NEEDS IVC FILTER DUE TO REFUSING ALL ANTICOAGULATION AND NONCOMPLIANCE HAS BL LE DVTS DW RN AND PT AND CM AND ORTHO AND PSYCHIATRY Physical Exam Vital signs: Vital Signs 11/14/17 13:09 11/14/17 13:30 11/14/17 13:45 Temperature 97.6 F Pulse Rate 96 H 84 82 Respiratory Rate 18 18 18 Blood Pressure 122/69 123/70 140/76 Pulse Oximetry 95 95 95 11/14/17 14:00 11/14/17 16:14 11/14/17 19:51 Temperature 97.6 F 97.5 F L 97.3 F L Pulse Rate 92 H 114 H 63 Respiratory Rate 18 16 18 Blood Pressure 140/76 135/87 105/57 L Pulse Oximetry 95 97 96 11/14/17 23:02 11/15/17 04:35 11/15/17 08:00 Temperature 98.4 F 97.6 F Pulse Rate 103 H 104 H 106 H Respiratory Rate 18 18 16 Blood Pressure 134/74 158/84 H 168/77 H Pulse Oximetry 94 L 94 L 95 11/15/17 12:00 Temperature 98.5 F Pulse Rate 111 H Respiratory Rate 16 Blood Pressure 168/95 H Pulse Oximetry 93 L Intake & Output 11/14/17 11/15/17 11/15/17 18:59 06:59 18:59 Intake Total 600 / 600 560 / 560 Output Total 530 / 530 1800 / 1800 Balance 70 / 70 -1240 / -1240 Weight 69.9 kg Intake: IV 200 / 200 Ancef Inj 1,000 MG In NS Inj 200 / 200 100 ML @ 200 mls/hr IV.SIG Q8H [facility] Rx#:[id number] Oral 360 / 360 Anesthesia Amount 600 / 600 Output: Urine 500 / 500 1800 / 1800 Estimated Blood Loss 30 / 30 Other: Date of Last Bowel Movement 11/13/17 11/13/17 11/13/17 # Bowel Movements 0 Narrative: Gen: NAD Skin: No visible lesions HEENT: EOMI; PERRLA. Cardiovascular: Regular rate and rhythm; normal perfusion. Respiratory: CTAB; normal rate Abdominal: Soft, nontender, nondistended. Normal BS Ext: Grossly normal ROM and motor function of upper extremities> RLE extended; ROM of RLE not assessed. No pain at rest. R LE DRESSED Neuro: Oriented to place, person, time. Grossly normal CN. Grossly normal peripheral motor/sensory function Psych: Patient would answer questions directly when asked but would have tangential thoughts and delusions of grandeur Major flight of ideas Insight and judgment is nonexistent Mood and behavior is inappropriate Results - Labs CBC & Chem 7: 11/15/17 06:46 11/15/17 06:46 Laboratory Results - last 24 hr 11/14/17 11/15/17 11/15/17 20:49 06:46 06:46 WBC 10.6 RBC 4.15 L Hgb 13.7 Hct 40.3 MCV 97.1 MCH 33.0 MCHC 34.0 RDW 12.7 Plt Count 206 MPV 8.7 Neut % (Auto) 71.2 H Lymph % (Auto) 16.0 [place] % (Auto) 12.2 H Eos % (Auto) 0.1 Baso % (Auto) 0.5 Neut # (Auto) 7.5 Lymph # (Auto) 1.7 [place] # (Auto) 1.3 H Eos # (Auto) 0.0 Baso # (Auto) 0.1 WBC Differential . Differential Comment Auto diff final Sodium 138 Potassium 4.2 Chloride 105 Carbon Dioxide 19.3 L Anion Gap 14 BUN 18 Creatinine 0.73 Estimated GFR Greater than 89 POC Glucose 361 H Random Glucose 266 H Calcium 8.6 Phosphorus 2.6 Magnesium 2.1 Total Bilirubin 0.8 AST 20 ALT 22 Alkaline Phosphatase 87 Total Protein 6.7 Albumin 2.7 L - Imaging Impressions Hip X-Ray 11/14/17 00:00 CONCLUSION: Excellent alignment of the fracture post fixation. - Procedures - Preoperative Diagnosis (1) Displaced intertrochanteric fracture of right femur, initial encounter for closed fracture Date of procedure: 11/14/17 Procedure: Right hip reduction and intramedullary nail fixation Anesthesia: GETA Surgeon: Anshu Gamble MD Take Away Attendant: NICOLAS Owen PA-C The surgical procedure was assisted by my physician recruiting assistant. My P.A. presence was necessary throughout this case for the manipulation and positioning of the surgical extremity. My P.A. was assisting me throughout the duration of this procedure. The skill set of a physician recruiting assistant was medically necessary to complete this procedure. During the surgical case the truck technician was working at the back table and the physician recruiting assistant was directly assisting me. Operation and Findings: Implants used: Biomet 11 mm short troch nail Plan of activity: Weight-bear as tolerated Patient was seen and evaluated preoperatively. The patient has significant hip pain from intertrochanteric hip fracture. The risk and benefits of surgery were discussed in depth with the patient to include bleeding infection nonunion malunion and need for hip replacement painful hardware as well as medical competitions including but not stroke heart attack and . Patient was seen by psychiatry preoperatively. Patient was deemed incompetent to make decisions regarding his care. This case was discussed with Dr. Rasmussen, Dr. Schwartz, and Dr. Cody. This case was deemed medically necessary and medically urgent given the nature of his fracture. Operative site was marked. Patient was brought to the operating room and placed on fracture table. IV sedation was administered by anesthesiologist. Timeout procedure was performed. Hip and leg were prepped with alcohol followed by DuraPrep and draped in the usual sterile fashion. IV antibiotics were given prior to incision. Procedure began with reduction of fracture. Traction was applied. The leg was manipulated to achieve reduction. Excellent reduction was achieved. Fluoroscopy was used to confirm reduction. A three inch incision was made proximal to the trochanter. Subcutaneous tissue was dissected bluntly. Guidepin was placed at the tip of the trochanter and advanced into the femoral canal. Fluoroscopy confirmed appropriate guidepin placement. A opening reamer was placed over the guidepin. The nail was attached to the insertion handle. Nail was now placed through the tip of the trochanter into the femoral canal. Fluoroscopy confirmed appropriate nail placement. A second incision was made over the lateral thigh. Cannulas were placed through the insertion handle down to the femur. Guidepin was now placed through the femoral nail into the center of the femoral head. Fluoroscopy confirmed appropriate guidepin placement. Screw length was measured. Cannulated drill was placed over the guidepin. Appropriate length lag screw was now placed. Traction was released and compression was applied. The set screw was now tightened in dynamic mode. An additional anti-rotational screw was placed. Using the insertion handle as a guide a distal interlocking screw was drilled and placed. Final fluoroscopy revealed well aligned fracture with well-placed hardware. Incision was closed with 3-0 Vicryl and vince. Sterile dressings were applied. Patient was awakened and transferred to recovery room. Documented By: Anshu Gamble MD Assessment and Plan - Assessment (1) Closed hip fracture requiring operative repair Code(s): S72.009A - Fracture of unspecified part of neck of unspecified femur, initial encounter for closed fracture Status: Acute (2) Fall Code(s): W19.XXXA - Unspecified fall, initial encounter Status: Acute (3) DVT (deep venous thrombosis) Code(s): I82.409 - Acute embolism and thrombosis of unspecified deep veins of unspecified lower extremity Status: Acute (4) Schizoaffective disorder Code(s): F25.9 - Schizoaffective disorder, unspecified Status: Deleted - Plan Mr. Fitch is a 72 yo M with: Right hip fracture Impression: Mechanical fall resulting in R hip fracture 3 days prior. Inability to bear weight afterwards; patient has remained in bed since fracture. Hip XR on admission demonstrating intertrochanteric fracture Per discussion with Orthopedic surgery, patient initially demonstrated knowledge of risks/benefits and elected to proceed; patient subsequently changed mind and had flight of ideas -Orthopedic surgery consulted -Case management and Psychiatry consulted to establish whether patient has capacity -Will make nonweightbearing on RLE currently -Morphine 2mg IV q4hrs for pain control -will give diet and defer surgical plans until capacity determined -We will need surgery patient does not understand the concept-will see what psychiatry has to offer Psychiatric illness Impression: flight of ideas, delusions of grandeur intermittently. Reported PMH of schizophrenia. Neurologic exam normal; oriented -Will call patient's [facility] to get further care details -Psychiatry consulted --await their help with his acute psychosis WILL SIGN FOR HIM TO HAVE SURGERY SP DISPLACED INTERTROCHANTERIC FRACTURE OF RIGHT FEMUR REPAIR WITH RIGHT HIP REDUCTION AND INTRAMEDULLARY NAIL FIXATION ON 11-14 DVT Impression: RLE DVT on Doppler US. Tachycardic with immobility. Patient declines treatment at this time -Psych evaluation for capacity Presurgical evaluation Impression: No reported PMH of cardio/pulmonary/renal disease. Mild sinus tachycardia on EKG (HR 108). CBC/BMP/Coagulation profile unremarkable with exception of glucose 323 -No contraindications to surgery seen -Will give low dose SS insulin/accuchecks due to hyperglycemia on admission Hyperglycemia possible diabetes we will check a hemoglobin A1c NONCOMPLIANCE DUE TO PSYCHIATRIC ISSUES NEEDS SURGERY DUE TO HIGH RISK OF IF NOT HAVING SURGERY DAVE RN AND PT AND COLD ROLLING COORDINATOR AND CASE MANAGEMENT WILL SIGN FOR HIM TO HAVE SURGERY NEEDS IVC FILTER FOR BL LE DVTS CONSULT IR [facility] YESTERDAY 11-14 DO TO BEHAVIOR POST SURGERY DVT PPX -SCD's -Will need therapeutic anticoagulation and/or IVC filter based on surgery plans since has DVT Code Status: FULL CODE Discussed Condition With: DAVE RN AND PT AND CM AND ORTHO AND PSYCHIATRY Discharge Planning: TO HAVE SURGERY TODAY (1) Closed hip fracture requiring operative repair Qualifiers: Encounter type: initial encounter Laterality: right Qualified Code(s): S72.001A - Fracture of unspecified part of neck of right femur, initial encounter for closed fracture (2) Fall Qualifiers: Encounter type: initial encounter Qualified Code(s): W19.XXXA - Unspecified fall, initial encounter
--- NOTE | 2017-11-15 14:59 | P.PNPSY ---
Subjective Remarks: Patient was seen today for psychiatric reevaluation. Patient discussed with primary medical team. Patient is found eating his food, today more engageable in a conversation, more appropriate, reports that he has agreed with having surgery. He says that he understands his surgery, he wants the surgery, he does not want to be in pain anymore. Patient continues to be a little bit irritable, insight less about her psychiatric condition, disorganized at times, with grandeur and paranoid delusions. Patient is fully oriented x3 at the moment. Has been refusing consistently psychotropics. Yesterday was agitated, received Geodon 20 mg IM to calm down Mental Status Examination Appearance: Disheveled Consciousness: Alert Orientation: x4 Speech: Rapid Language: Adequate Fund of Knowledge: Adequate Attention and Concentration: Adequate Memory: Unremarkable Mood: Angry Affect: Irritable Thought Process & Associations: Loose associations, Tangential Thought Content: Bizarre thinking Hallucination Type: None Delusion Type: Paranoid Suicidal Ideation: No Suicidal Plan: No Suicidal Intention: No Homicidal Ideation: No Homicidal Plan: No Homicidal Intention: No Insight: Poor Judgment: Poor Assessment and Plan - Assessment (1) Schizoaffective disorder Code(s): F25.9 - Schizoaffective disorder, unspecified Status: Acute - Plan Plan: Patient seems to have an improved thought process and thought content today. Continues to be delusional and disorganized, but agree with surgery. He is oriented x3, does not seem to be delirious at this time. Patient with an elevated risk to decompensate cognitively and psychiatrically given the level of the stress and acute medical condition. Continue current psychotropic regimen. For agitation and aggressive behavior Haldol 2-5 mg IM vs Geodon 10- 20 mg IM every 8 hours as needed aggressive behavior agitation. Patient needs psychiatric admission once medically stable. Justification for Continued Inpatient Stay: Patient is from psychiatric admission was medically stable.
[2017-11-15] MEDS: Enoxaparin Inj 30 MG/0.3 ML Syringe SQ SCH ×2 (18:21→20:57)
[2017-11-16] MEDS: Insulin NovoLOG Aspart Correctional Sugar Inj SQ SCH ×5 (04:51→22:20)
[2017-11-16] MEDS: Sod Chloride 0.9% Inj 1,000 ML IV.CONT SCH ×2 (04:51→14:26)
[2017-11-16] MEDS: Acetaminophen 325 MG Tablet PO PRN ×3 (05:53→18:34)
--- NOTE | 2017-11-16 06:30 | P.PNOP ---
Subjective Interval history: POD 2 s/p IMN right hip doing well. improving. Physical Exam Vital signs: Vital Signs 11/15/17 08:00 11/15/17 12:00 11/15/17 16:00 Temperature 98.5 F 98.7 F Pulse Rate 106 H 111 H 106 H Respiratory Rate 16 16 16 Blood Pressure 168/77 H 168/95 H 144/77 H Pulse Oximetry 95 93 L 94 L 11/15/17 19:18 11/15/17 23:16 Temperature 99.3 F 97.9 F Pulse Rate 95 H 94 H Respiratory Rate 18 18 Blood Pressure 154/75 H 143/70 H Pulse Oximetry 97 96 Intake & Output 11/15/17 11/15/17 11/16/17 06:59 18:59 06:59 Intake Total 560 / 560 580 / 580 360 / 360 Output Total 1800 / 1800 450 / 450 875 / 875 Balance -1240 / -1240 130 / 130 -515 / -515 Weight 69.9 kg 69.9 kg Intake: IV 200 / 200 100 / 100 Ancef Inj 1,000 MG In NS Inj 200 / 200 100 / 100 100 ML @ 200 mls/hr IV.SIG Q8H TIARA Rx#:[id number] Oral 360 / 360 480 / 480 360 / 360 Output: Urine 1800 / 1800 450 / 450 875 / 875 Other: # Voids 3 Date of Last Bowel Movement 11/13/17 11/13/17 # Bowel Movements 0 0 Narrative: RLE: dressign clean and dry. itnact. NVI Results - Labs CBC & Chem 7: 11/15/17 06:46 11/15/17 06:46 Laboratory Results - last 24 hr 11/15/17 11/15/17 11/15/17 06:46 06:46 19:59 WBC 10.6 RBC 4.15 L Hgb 13.7 Hct 40.3 MCV 97.1 MCH 33.0 MCHC 34.0 RDW 12.7 Plt Count 206 MPV 8.7 Neut % (Auto) 71.2 H Lymph % (Auto) 16.0 [place] % (Auto) 12.2 H Eos % (Auto) 0.1 Baso % (Auto) 0.5 Neut # (Auto) 7.5 Lymph # (Auto) 1.7 [place] # (Auto) 1.3 H Eos # (Auto) 0.0 Baso # (Auto) 0.1 WBC Differential . Differential Comment Auto diff final Sodium 138 Potassium 4.2 Chloride 105 Carbon Dioxide 19.3 L Anion Gap 14 BUN 18 Creatinine 0.73 Estimated GFR Greater than 89 POC Glucose 410 H Random Glucose 266 H Calcium 8.6 Phosphorus 2.6 Magnesium 2.1 Total Bilirubin 0.8 AST 20 ALT 22 Alkaline Phosphatase 87 Total Protein 6.7 Albumin 2.7 L - Procedures - Preoperative Diagnosis (1) Displaced intertrochanteric fracture of right femur, initial encounter for closed fracture Date of procedure: 11/14/17 Procedure: Right hip reduction and intramedullary nail fixation Anesthesia: GETA Surgeon: Anshu Gamble MD Hospital Unit Clerk: NICOLAS Owen PA-C The surgical procedure was assisted by my physician front office assistant. My P.A. presence was necessary throughout this case for the manipulation and positioning of the surgical extremity. My P.A. was assisting me throughout the duration of this procedure. The skill set of a physician front office assistant was medically necessary to complete this procedure. During the surgical case the surgical services manager was working at the back table and the physician front office assistant was directly assisting me. Operation and Findings: Implants used: Biomet 11 mm short troch nail Plan of activity: Weight-bear as tolerated Patient was seen and evaluated preoperatively. The patient has significant hip pain from intertrochanteric hip fracture. The risk and benefits of surgery were discussed in depth with the patient to include bleeding infection nonunion malunion and need for hip replacement painful hardware as well as medical competitions including but not stroke heart attack and . Patient was seen by psychiatry preoperatively. Patient was deemed incompetent to make decisions regarding his care. This case was discussed with Dr. Rasmussen, Dr. Schwartz, and Dr. Cody. This case was deemed medically necessary and medically urgent given the nature of his fracture. Operative site was marked. Patient was brought to the operating room and placed on fracture table. IV sedation was administered by anesthesiologist. Timeout procedure was performed. Hip and leg were prepped with alcohol followed by DuraPrep and draped in the usual sterile fashion. IV antibiotics were given prior to incision. Procedure began with reduction of fracture. Traction was applied. The leg was manipulated to achieve reduction. Excellent reduction was achieved. Fluoroscopy was used to confirm reduction. A three inch incision was made proximal to the trochanter. Subcutaneous tissue was dissected bluntly. Guidepin was placed at the tip of the trochanter and advanced into the femoral canal. Fluoroscopy confirmed appropriate guidepin placement. A opening reamer was placed over the guidepin. The nail was attached to the insertion handle. Nail was now placed through the tip of the trochanter into the femoral canal. Fluoroscopy confirmed appropriate nail placement. A second incision was made over the lateral thigh. Cannulas were placed through the insertion handle down to the femur. Guidepin was now placed through the femoral nail into the center of the femoral head. Fluoroscopy confirmed appropriate guidepin placement. Screw length was measured. Cannulated drill was placed over the guidepin. Appropriate length lag screw was now placed. Traction was released and compression was applied. The set screw was now tightened in dynamic mode. An additional anti-rotational screw was placed. Using the insertion handle as a guide a distal interlocking screw was drilled and placed. Final fluoroscopy revealed well aligned fracture with well-placed hardware. Incision was closed with 3-0 Vicryl and vince. Sterile dressings were applied. Patient was awakened and transferred to recovery room. Documented By: Anshu Gamble MD Assessment and Plan - Assessment and Plan 1) Right Intertroch Hip Fx s/p IMN - POD 2 -WBAT -daily dressing changes POD 2 -psych and med mgmt -CM for DC planning. SNF vs home -DVT prophylaxis -f/u raquel Gamble or GUILLERMO in 2 weeks [facility] Prescription Drug Monitoring Database has been queried and verified prior to prescribing the controlled substance. Acute pain exception. This patient has normal, predicted, physiological, and time limited response to an adverse mechanical stimulus associated with surgery, trauma, or acute illness as described in my notes. There is a lack of alternative treatment options other than to include the prescribed narcotic treatment for this condition.
[2017-11-16 08:26] LABS: Prothrombin Time 10.3 sec (9.8-11.6)
[2017-11-16 08:29] LABS: Baso # (Auto) 0.1 th/mm3 (0.0-0.2); Baso % (Auto) 0.8 % (0.0-2.0); Eos # (Auto) 0.1 th/mm3 (0.0-0.4); Eos % (Auto) 1.3 % (0.0-4.0); Hematocrit 40.4 % (39.0-51.0); Hemoglobin 13.7 gm/dL (13.0-17.0); Lymph # (Auto) 1.6 th/mm3 (1.0-4.8); Lymph % (Auto) 17.9 % (9.0-44.0); Mean Corpuscular HGB Conc 33.8 % (32.0-36.0); Mean Corpuscular Hemoglobin 32.5 pg (27.0-34.0); Mean Corpuscular Volume 96.1 fL (80.0-100.0); Mean Platelet Volume 8.9 fL (7.0-11.0); Mono % (Auto) 11.3 % (0.0-8.0); Neut # (Auto) 6.3 th/mm3 (1.8-7.7); Neut % (Auto) 68.7 % (16.0-70.0); Platelet Count 212 th/mm3 (150-450); Red Blood Count 4.21 mil/mm3 (4.50-5.90); Red Cell Distribution Width 12.5 % (11.6-17.2); White Blood Count 9.2 th/mm3 (4.0-11.0)
[2017-11-16 08:55] LABS: Alanine Aminotransferase 21 U/L (12-78); Albumin 2.7 g/dL (3.4-5.0); Anion Gap 9 meq/L (5-15); Aspartate Aminotransferase 17 U/L (15-37); Blood Urea Nitrogen 16 mg/dL (7-18); Calcium 8.3 mg/dL (8.5-10.1); Carbon Dioxide 21.6 meq/L (21.0-32.0); Chloride 105 meq/L (98-107); Glomerular Filtration Rate Greater Than 89 mL/min (>89); Glucose,Random 250 mg/dL (74-106); Magnesium 1.8 mg/dL (1.5-2.5); Phosphorus 2.3 mg/dL (2.5-4.9); Potassium 3.9 meq/L (3.5-5.1); Sodium 136 meq/L (136-145)
[2017-11-16 08:58] LABS: Alkaline Phosphatase 86 U/L (45-117); Total Protein 6.8 g/dL (6.4-8.2)
--- NOTE | 2017-11-16 12:29 | P.PNIM ---
Subjective Interval history: Mr. Fitch is a 72 yo M with no reported PMH schizoaffective disorder who presented to [place] ED from [facility] after reported fall injury 3 days prior. Patient states that he tripped on a slipper and his right leg was bent resulted in him falling. Patient reports immediate knowledge of injury; he was able to crawl into bed and stayed there for ~2 days hoping his pain would improve. Patient was then unable to stand when helped by staff so was taken to hospital. He reports pain when standing but that he felt good last night so he thought he was improving. Patient denies medical conditions. No reported head injury from fall; he states that it was from tripping. Patient does not report chest pain, shortness of breath, abdominal pain, abnormal urination, or abnormal BM. 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 He generally does well and doesn't need assistance from staff PMH- schizoaffective disorder PSH- L humerus fracture Allergies- NKDA Meds- None; occasional ASA 9-22 Mr. Fitch was afebrile with mild tachycardia overnight; otherwise stable VS. US of lower extremities demonstrated DVT. Patient reports that he has refused surgery and that he is sure. He also declines treatment of DVT, stating that it will go away. Patient was told the risks of complication including but still declines. Patient also stated that he wanted me to call the social security office or find and "honest gyroscope repairer" to give them his SS digits to confirm that he is a billionaire, helped the [employer], and saved [place]. Patient requests a diet but declines other treatment. He states his leg pain is controlled. 9-23 patient has flight of ideas. Is acutely bipolar and manic and schizophrenic Await psychiatry Patient is refusing all Lovenox and any other medications Has positive DVT has right hip fracture that needs repair that he is refusing Have discussed with patient and RN and case management NEEDS SURGERY AND TREATMENT FOR DVT NEEDS PSYCHIATRIC EVALUATION 9-24 SEEN BY PSYCHIATRY NEEDS SURGERY WILL HAVE TO SIGN FOR HIM TO HAVE SURGERY DOES NOT HAVE A GUARDIAN AT THIS TIME HAS MEDICAL NECESSITY FOR SURGERY DUE TO WORSENING RISK OF DUE TO NOT HAVING SURGERY AM LABS 11-14 UNDERGOING SURGERY TODAY FOR RIGHT HIP REDUCTION AND INTRAMEDULLARY NAIL FIXATION TODAY TOLERATED PROCEDURE WELL SEEN BEFORE PROCEDURE WAS DONE AM LABS WILL NEED LOVENOX FOR DVTS 11-15 HAD TO HAVE SOPHY YESTERDAY NEEDS IVC FILTER DUE TO REFUSING ALL ANTICOAGULATION AND NONCOMPLIANCE HAS RIGHT LE DVTS DW RN AND PT AND CM AND ORTHO AND PSYCHIATRY Patient requires a IVC filter due to RIGHT lower extremity DVTs patient is not at capacity to give consent and has no family to do this therefore 2 physicians will sign like we did for his hip surgery. I will be happy to sign the consent. Yesterday the orthopedic surgeon signed for the patient to have hip surgery. I will need another signature of another physician to be able to get approval for the procedure. This is medically necessary and needs to physicians to sign for and I will be 1 of the signatures. 11-16 TO HAVE IVC FILTER LATER TODAY SINCE NOT USUALLY TAKING ANTICOAGULANTS WELL AND POOR COMPLIANCE AND HAS RIGHT LE DVTS DW RN AND PT AND CM PT REMAINS DELUSIONAL Physical Exam Vital signs: Vital Signs 11/15/17 16:00 11/15/17 19:18 11/15/17 20:00 Temperature 98.7 F 99.3 F Pulse Rate 106 H 95 H Respiratory Rate 16 18 18 Blood Pressure 144/77 H 154/75 H Pulse Oximetry 94 L 97 11/15/17 23:16 11/16/17 08:00 Temperature 97.9 F 98.0 F Pulse Rate 94 H 103 H Respiratory Rate 18 18 Blood Pressure 143/70 H 172/93 H Pulse Oximetry 96 94 L Intake & Output 11/15/17 11/16/17 11/16/17 18:59 06:59 18:59 Intake Total 580 / 580 360 / 360 Output Total 450 / 450 875 / 875 400 / 400 Balance 130 / 130 -515 / -515 -400 / -400 Weight 69.9 kg Intake: IV 100 / 100 Ancef Inj 1,000 MG In NS Inj 100 / 100 100 ML @ 200 mls/hr IV.SIG Q8H TIARA Rx#:[id number] Oral 480 / 480 360 / 360 Output: Urine 450 / 450 875 / 875 400 / 400 Other: # Voids 3 Date of Last Bowel Movement 11/13/17 11/13/17 11/14/17 # Bowel Movements 0 Narrative: Gen: NAD Skin: No visible lesions HEENT: EOMI; PERRLA. Cardiovascular: Regular rate and rhythm; normal perfusion. Respiratory: CTAB; normal rate Abdominal: Soft, nontender, nondistended. Normal BS Ext: Grossly normal ROM and motor function of upper extremities> RLE extended; ROM of RLE not assessed. No pain at rest. R LE DRESSED Neuro: Oriented to place, person, time. Grossly normal CN. Grossly normal peripheral motor/sensory function Psych: Patient would answer questions directly when asked but would have tangential thoughts and delusions of grandeur Major flight of ideas Insight and judgment is nonexistent Mood and behavior is inappropriate Results - Labs CBC & Chem 7: 11/16/17 07:47 11/16/17 07:47 Laboratory Results - last 24 hr 11/15/17 11/16/17 11/16/17 19:59 07:47 07:47 WBC 9.2 RBC 4.21 L Hgb 13.7 Hct 40.4 MCV 96.1 MCH 32.5 MCHC 33.8 RDW 12.5 Plt Count 212 MPV 8.9 Neut % (Auto) 68.7 Lymph % (Auto) 17.9 [place] % (Auto) 11.3 H Eos % (Auto) 1.3 Baso % (Auto) 0.8 Neut # (Auto) 6.3 Lymph # (Auto) 1.6 [place] # (Auto) 1.0 H Eos # (Auto) 0.1 Baso # (Auto) 0.1 WBC Differential . Differential Comment Auto diff final PT 10.3 INR 1.0 Sodium Potassium Chloride Carbon Dioxide Anion Gap BUN Creatinine Estimated GFR POC Glucose 410 H Random Glucose Calcium Phosphorus Magnesium Total Bilirubin AST ALT Alkaline Phosphatase Total Protein Albumin 11/16/17 07:47 WBC RBC Hgb Hct MCV MCH MCHC RDW Plt Count MPV Neut % (Auto) Lymph % (Auto) [place] % (Auto) Eos % (Auto) Baso % (Auto) Neut # (Auto) Lymph # (Auto) [place] # (Auto) Eos # (Auto) Baso # (Auto) WBC Differential Differential Comment PT INR Sodium 136 Potassium 3.9 Chloride 105 Carbon Dioxide 21.6 Anion Gap 9 BUN 16 Creatinine 0.64 Estimated GFR Greater than 89 POC Glucose Random Glucose 250 H Calcium 8.3 L Phosphorus 2.3 L Magnesium 1.8 Total Bilirubin 0.8 AST 17 ALT 21 Alkaline Phosphatase 86 Total Protein 6.8 Albumin 2.7 L - Imaging ITS Impressions Venous Doppler Study 11/10/17 00:00 CONCLUSION: 1. Widespread venous thrombosis of the right lower extremity as above. Hip X-Ray 11/14/17 00:00 CONCLUSION: Excellent alignment of the fracture post fixation. - Procedures - Preoperative Diagnosis (1) Displaced intertrochanteric fracture of right femur, initial encounter for closed fracture Date of procedure: 11/14/17 Procedure: Right hip reduction and intramedullary nail fixation Anesthesia: GETA Surgeon: Anshu Gamble MD Tool Die Maker: NICOLAS Owen PA-C The surgical procedure was assisted by my physician budget assistant. My P.A. presence was necessary throughout this case for the manipulation and positioning of the surgical extremity. My P.A. was assisting me throughout the duration of this procedure. The skill set of a physician budget assistant was medically necessary to complete this procedure. During the surgical case the processing technician was working at the back table and the physician budget assistant was directly assisting me. Operation and Findings: Implants used: Biomet 11 mm short troch nail Plan of activity: Weight-bear as tolerated Patient was seen and evaluated preoperatively. The patient has significant hip pain from intertrochanteric hip fracture. The risk and benefits of surgery were discussed in depth with the patient to include bleeding infection nonunion malunion and need for hip replacement painful hardware as well as medical competitions including but not stroke heart attack and . Patient was seen by psychiatry preoperatively. Patient was deemed incompetent to make decisions regarding his care. This case was discussed with Dr. Rasmussen, Dr. Schwartz, and Dr. Cody. This case was deemed medically necessary and medically urgent given the nature of his fracture. Operative site was marked. Patient was brought to the operating room and placed on fracture table. IV sedation was administered by anesthesiologist. Timeout procedure was performed. Hip and leg were prepped with alcohol followed by DuraPrep and draped in the usual sterile fashion. IV antibiotics were given prior to incision. Procedure began with reduction of fracture. Traction was applied. The leg was manipulated to achieve reduction. Excellent reduction was achieved. Fluoroscopy was used to confirm reduction. A three inch incision was made proximal to the trochanter. Subcutaneous tissue was dissected bluntly. Guidepin was placed at the tip of the trochanter and advanced into the femoral canal. Fluoroscopy confirmed appropriate guidepin placement. A opening reamer was placed over the guidepin. The nail was attached to the insertion handle. Nail was now placed through the tip of the trochanter into the femoral canal. Fluoroscopy confirmed appropriate nail placement. A second incision was made over the lateral thigh. Cannulas were placed through the insertion handle down to the femur. Guidepin was now placed through the femoral nail into the center of the femoral head. Fluoroscopy confirmed appropriate guidepin placement. Screw length was measured. Cannulated drill was placed over the guidepin. Appropriate length lag screw was now placed. Traction was released and compression was applied. The set screw was now tightened in dynamic mode. An additional anti-rotational screw was placed. Using the insertion handle as a guide a distal interlocking screw was drilled and placed. Final fluoroscopy revealed well aligned fracture with well-placed hardware. Incision was closed with 3-0 Vicryl and vince. Sterile dressings were applied. Patient was awakened and transferred to recovery room. Documented By: Anshu Gamble MD Assessment and Plan - Assessment (1) Closed hip fracture requiring operative repair Code(s): S72.009A - Fracture of unspecified part of neck of unspecified femur, initial encounter for closed fracture Status: Acute (2) Fall Code(s): W19.XXXA - Unspecified fall, initial encounter Status: Acute (3) DVT (deep venous thrombosis) Code(s): I82.409 - Acute embolism and thrombosis of unspecified deep veins of unspecified lower extremity Status: Acute (4) Schizoaffective disorder Code(s): F25.9 - Schizoaffective disorder, unspecified Status: Deleted - Plan Mr. Fitch is a 72 yo M with: Right hip fracture Impression: Mechanical fall resulting in R hip fracture 3 days prior. Inability to bear weight afterwards; patient has remained in bed since fracture. Hip XR on admission demonstrating intertrochanteric fracture Per discussion with Orthopedic surgery, patient initially demonstrated knowledge of risks/benefits and elected to proceed; patient subsequently changed mind and had flight of ideas -Orthopedic surgery consulted -Case management and Psychiatry consulted to establish whether patient has capacity -Will make nonweightbearing on RLE currently -Morphine 2mg IV q4hrs for pain control -will give diet and defer surgical plans until capacity determined -We will need surgery patient does not understand the concept-will see what psychiatry has to offer Psychiatric illness Impression: flight of ideas, delusions of grandeur intermittently. Reported PMH of schizophrenia. Neurologic exam normal; oriented -Will call patient's ASSISTED to get further care details -Psychiatry consulted --await their help with his acute psychosis WILL SIGN FOR HIM TO HAVE SURGERY SP DISPLACED INTERTROCHANTERIC FRACTURE OF RIGHT FEMUR REPAIR WITH RIGHT HIP REDUCTION AND INTRAMEDULLARY NAIL FIXATION ON 11-14 DVT Impression: RLE DVT on Doppler US. Tachycardic with immobility. Patient declines treatment at this time -Psych evaluation for capacity NEEDS IVC FILTER FOR EXTENSIVE RIGHT LE DVT Presurgical evaluation Impression: No reported PMH of cardio/pulmonary/renal disease. Mild sinus tachycardia on EKG (HR 108). CBC/BMP/Coagulation profile unremarkable with exception of glucose 323 -No contraindications to surgery seen -Will give low dose SS insulin/accuchecks due to hyperglycemia on admission Hyperglycemia possible diabetes we will check a hemoglobin A1c NONCOMPLIANCE DUE TO PSYCHIATRIC ISSUES NEEDS SURGERY DUE TO HIGH RISK OF IF NOT HAVING SURGERY DW RN AND PT AND AUTOMOBILE TIRE BUILDER AND CASE MANAGEMENT WILL SIGN FOR HIM TO HAVE SURGERY NEEDS IVC FILTER FOR BL LE DVTS CONSULT IR CASH BECKETT YESTERDAY 11-14 DO TO BEHAVIOR POST SURGERY DVT PPX -SCD's -Will need therapeutic anticoagulation and/or IVC filter based on surgery plans since has DVT Code Status: FULL CODE Discussed Condition With: RN AND PT Discharge Planning: TO HAVE SURGERY TODAY (1) Closed hip fracture requiring operative repair Qualifiers: Encounter type: initial encounter Laterality: right Qualified Code(s): S72.001A - Fracture of unspecified part of neck of right femur, initial encounter for closed fracture (2) Fall Qualifiers: Encounter type: initial encounter Qualified Code(s): W19.XXXA - Unspecified fall, initial encounter (3) DVT (deep venous thrombosis) Qualifiers: Laterality: right
[2017-11-16] MEDS: Senna/Docusate Sodium 8.6/50 MG Tablet PO SCH ×2 (12:47→22:20)
[2017-11-16] MEDS: Calcium/Vitamin D 250/125 MG Tablet PO SCH ×3 (12:47→22:19)
[2017-11-16] MEDS: Enoxaparin Inj 30 MG/0.3 ML Syringe SQ SCH ×2 (12:47→22:20)
[2017-11-17] MEDS: Sod Chloride 0.9% Inj 1,000 ML IV.CONT SCH ×3 (01:13→19:57)
[2017-11-17] MEDS: Insulin NovoLOG Aspart Correctional Sugar Inj SQ SCH ×5 (05:37→20:40)
--- NOTE | 2017-11-17 07:06 | P.PNOP ---
Subjective Interval history: POD 3 s/p IMN right hip improving. states pain is better. patient refusing IVC filter and DVT prophylaxis Physical Exam Vital signs: Vital Signs 11/16/17 08:00 11/16/17 12:02 11/16/17 20:00 Temperature 98.0 F 98.0 F 97.8 F Pulse Rate 103 H 110 H 102 H Respiratory Rate 18 17 18 Blood Pressure 172/93 H 147/87 H 141/76 H Pulse Oximetry 94 L 93 L 94 L 11/17/17 00:00 Temperature 98.7 F Pulse Rate 103 H Respiratory Rate 18 Blood Pressure 149/85 H Pulse Oximetry 95 Intake & Output 11/16/17 11/17/17 11/17/17 18:59 06:59 18:59 Intake Total 320 / 320 Output Total 400 / 400 900 / 900 Balance -80 / -80 -900 / -900 Weight 70 kg Intake: Oral 320 / 320 Output: Urine 400 / 400 900 / 900 Other: Date of Last Bowel Movement 11/14/17 11/14/17 # Bowel Movements 0 Narrative: RLE: dressings clean and dry. intact. NVI Results - Labs CBC & Chem 7: 11/16/17 07:47 11/16/17 07:47 Laboratory Results - last 24 hr 11/16/17 11/16/17 11/16/17 07:47 07:47 07:47 WBC 9.2 RBC 4.21 L Hgb 13.7 Hct 40.4 MCV 96.1 MCH 32.5 MCHC 33.8 RDW 12.5 Plt Count 212 MPV 8.9 Neut % (Auto) 68.7 Lymph % (Auto) 17.9 Mellette % (Auto) 11.3 H Eos % (Auto) 1.3 Baso % (Auto) 0.8 Neut # (Auto) 6.3 Lymph # (Auto) 1.6 Mellette # (Auto) 1.0 H Eos # (Auto) 0.1 Baso # (Auto) 0.1 WBC Differential . Differential Comment Auto diff final PT 10.3 INR 1.0 Sodium 136 Potassium 3.9 Chloride 105 Carbon Dioxide 21.6 Anion Gap 9 BUN 16 Creatinine 0.64 Estimated GFR Greater than 89 Random Glucose 250 H Calcium 8.3 L Phosphorus 2.3 L Magnesium 1.8 Total Bilirubin 0.8 AST 17 ALT 21 Alkaline Phosphatase 86 Total Protein 6.8 Albumin 2.7 L - Procedures - Preoperative Diagnosis (1) Displaced intertrochanteric fracture of right femur, initial encounter for closed fracture Date of procedure: 11/14/17 Procedure: Right hip reduction and intramedullary nail fixation Anesthesia: GETA Surgeon: Anshu Gamble MD Tree Worker: NICOLAS Owen PA-C The surgical procedure was assisted by my physician assistant program director. My P.A. presence was necessary throughout this case for the manipulation and positioning of the surgical extremity. My P.A. was assisting me throughout the duration of this procedure. The skill set of a physician assistant program director was medically necessary to complete this procedure. During the surgical case the ophthalmic surgical assistant was working at the back table and the physician assistant program director was directly assisting me. Operation and Findings: Implants used: Biomet 11 mm short troch nail Plan of activity: Weight-bear as tolerated Patient was seen and evaluated preoperatively. The patient has significant hip pain from intertrochanteric hip fracture. The risk and benefits of surgery were discussed in depth with the patient to include bleeding infection nonunion malunion and need for hip replacement painful hardware as well as medical competitions including but not stroke heart attack and . Patient was seen by psychiatry preoperatively. Patient was deemed incompetent to make decisions regarding his care. This case was discussed with Dr. Rasmussen, Dr. Schwartz, and Dr. Cody. This case was deemed medically necessary and medically urgent given the nature of his fracture. Operative site was marked. Patient was brought to the operating room and placed on fracture table. IV sedation was administered by anesthesiologist. Timeout procedure was performed. Hip and leg were prepped with alcohol followed by DuraPrep and draped in the usual sterile fashion. IV antibiotics were given prior to incision. Procedure began with reduction of fracture. Traction was applied. The leg was manipulated to achieve reduction. Excellent reduction was achieved. Fluoroscopy was used to confirm reduction. A three inch incision was made proximal to the trochanter. Subcutaneous tissue was dissected bluntly. Guidepin was placed at the tip of the trochanter and advanced into the femoral canal. Fluoroscopy confirmed appropriate guidepin placement. A opening reamer was placed over the guidepin. The nail was attached to the insertion handle. Nail was now placed through the tip of the trochanter into the femoral canal. Fluoroscopy confirmed appropriate nail placement. A second incision was made over the lateral thigh. Cannulas were placed through the insertion handle down to the femur. Guidepin was now placed through the femoral nail into the center of the femoral head. Fluoroscopy confirmed appropriate guidepin placement. Screw length was measured. Cannulated drill was placed over the guidepin. Appropriate length lag screw was now placed. Traction was released and compression was applied. The set screw was now tightened in dynamic mode. An additional anti-rotational screw was placed. Using the insertion handle as a guide a distal interlocking screw was drilled and placed. Final fluoroscopy revealed well aligned fracture with well-placed hardware. Incision was closed with 3-0 Vicryl and vince. Sterile dressings were applied. Patient was awakened and transferred to recovery room. Documented By: Anshu Gamble MD Assessment and Plan - Assessment and Plan 1) Right Intertroch Hip Fx s/p IMN - POD 3 -WBAT -daily dressing changes POD 2 -psych and med mgmt -CM for DC planning. SNF vs home -DVT prophylaxis -f/u wt Lorie or GUILLERMO in 2 weeks [facility] Prescription Drug Monitoring Database has been queried and verified prior to prescribing the controlled substance. Acute pain exception. This patient has normal, predicted, physiological, and time limited response to an adverse mechanical stimulus associated with surgery, trauma, or acute illness as described in my notes. There is a lack of alternative treatment options other than to include the prescribed narcotic treatment for this condition.
--- NOTE | 2017-11-17 10:54 | P.RAD ---
Radiology Note Discussed case with Dr. Rivas. 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 Recent hip surgery with expected convalescence but patient refuses oral anticoagulation for DVT prophylaxis. High risk for DVT and/or PE. Under the circumstances, primary service has deemed IVC filter placement medically necessary for PE prevention. Considering the above, would agree with medial necessity.
[2017-11-17] MEDS: Senna/Docusate Sodium 8.6/50 MG Tablet PO SCH ×2 (11:10→20:41)
[2017-11-17] MEDS: Calcium/Vitamin D 250/125 MG Tablet PO SCH ×3 (11:10→18:00)
[2017-11-17] MEDS: Enoxaparin Inj 30 MG/0.3 ML Syringe SQ SCH ×2 (11:10→20:40)
[2017-11-17] MEDS: Acetaminophen 325 MG Tablet PO PRN (11:18)
--- NOTE | 2017-11-17 11:19 | P.PNIM ---
Subjective Interval history: Mr. Fitch is a 72 yo M with no reported PMH schizoaffective disorder who presented to [place] ED from [facility] after reported fall injury 3 days prior. Patient states that he tripped on a slipper and his right leg was bent resulted in him falling. Patient reports immediate knowledge of injury; he was able to crawl into bed and stayed there for ~2 days hoping his pain would improve. Patient was then unable to stand when helped by staff so was taken to hospital. He reports pain when standing but that he felt good last night so he thought he was improving. Patient denies medical conditions. No reported head injury from fall; he states that it was from tripping. Patient does not report chest pain, shortness of breath, abdominal pain, abnormal urination, or abnormal BM. 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 He generally does well and doesn't need assistance from staff PMH- schizoaffective disorder PSH- L humerus fracture Allergies- NKDA Meds- None; occasional ASA 9-22 Mr. Fitch was afebrile with mild tachycardia overnight; otherwise stable VS. US of lower extremities demonstrated DVT. Patient reports that he has refused surgery and that he is sure. He also declines treatment of DVT, stating that it will go away. Patient was told the risks of complication including but still declines. Patient also stated that he wanted me to call the social security office or find and "honest endoscopy technican" to give them his SS digits to confirm that he is a billionaire, helped the [employer], and saved [place]. Patient requests a diet but declines other treatment. He states his leg pain is controlled. 9-23 patient has flight of ideas. Is acutely bipolar and manic and schizophrenic Await psychiatry Patient is refusing all Lovenox and any other medications Has positive DVT has right hip fracture that needs repair that he is refusing Have discussed with patient and RN and case management NEEDS SURGERY AND TREATMENT FOR DVT NEEDS PSYCHIATRIC EVALUATION 9-24 SEEN BY PSYCHIATRY NEEDS SURGERY WILL HAVE TO SIGN FOR HIM TO HAVE SURGERY DOES NOT HAVE A GUARDIAN AT THIS TIME HAS MEDICAL NECESSITY FOR SURGERY DUE TO WORSENING RISK OF DUE TO NOT HAVING SURGERY AM LABS 11-14 UNDERGOING SURGERY TODAY FOR RIGHT HIP REDUCTION AND INTRAMEDULLARY NAIL FIXATION TODAY TOLERATED PROCEDURE WELL SEEN BEFORE PROCEDURE WAS DONE AM LABS WILL NEED LOVENOX FOR DVTS 11-15 HAD TO HAVE SOPHY YESTERDAY NEEDS IVC FILTER DUE TO REFUSING ALL ANTICOAGULATION AND NONCOMPLIANCE HAS RIGHT LE DVTS DW RN AND PT AND CM AND ORTHO AND PSYCHIATRY Patient requires a IVC filter due to RIGHT lower extremity DVTs patient is not at capacity to give consent and has no family to do this therefore 2 physicians will sign like we did for his hip surgery. I will be happy to sign the consent. Yesterday the orthopedic surgeon signed for the patient to have hip surgery. I will need another signature of another physician to be able to get approval for the procedure. This is medically necessary and needs to physicians to sign for and I will be 1 of the signatures. 11-16 TO HAVE IVC FILTER LATER TODAY SINCE NOT USUALLY TAKING ANTICOAGULANTS WELL AND POOR COMPLIANCE AND HAS RIGHT LE DVTS DW RN AND PT AND CM PT REMAINS DELUSIONAL 11-17 TO GO FOR IVC FILTER LATER TODAY SINCE REFUSING MOST MEDS OTHER THAN TYLENOL REMAINS DELUSIONAL NEEDS IVC FILTER DW RN AND PT AND CM AND RADIOLOGY DC TO SNF TOMORROW AFTER IVC FILTER PLACED TODAY Physical Exam Vital signs: Vital Signs 11/16/17 12:02 11/16/17 20:00 11/17/17 00:00 Temperature 98.0 F 97.8 F 98.7 F Pulse Rate 110 H 102 H 103 H Respiratory Rate 17 18 18 Blood Pressure 147/87 H 141/76 H 149/85 H Pulse Oximetry 93 L 94 L 95 11/17/17 08:00 Temperature 97.6 F Pulse Rate 103 H Respiratory Rate 18 Blood Pressure 141/84 H Pulse Oximetry 93 L Intake & Output 11/16/17 11/17/17 11/17/17 18:59 06:59 18:59 Intake Total 320 / 320 Output Total 400 / 400 900 / 900 Balance -80 / -80 -900 / -900 Weight 70 kg Intake: Oral 320 / 320 Output: Urine 400 / 400 900 / 900 Other: Date of Last Bowel Movement 11/14/17 11/14/17 # Bowel Movements 0 Narrative: Gen: NAD Skin: No visible lesions HEENT: EOMI; PERRLA. Cardiovascular: Regular rate and rhythm; normal perfusion. Respiratory: CTAB; normal rate Abdominal: Soft, nontender, nondistended. Normal BS Ext: Grossly normal ROM and motor function of upper extremities> RLE extended; ROM of RLE not assessed. No pain at rest. R LE DRESSED Neuro: Oriented to place, person, time. Grossly normal CN. Grossly normal peripheral motor/sensory function Psych: Patient would answer questions directly when asked but would have tangential thoughts and delusions of grandeur Major flight of ideas Insight and judgment is nonexistent Mood and behavior is inappropriate Results - Labs CBC & Chem 7: 11/16/17 07:47 11/16/17 07:47 Laboratory Tests 11/10/17 11/10/17 11/10/17 12:15 12:15 12:18 WBC 8.4 RBC 4.55 Hgb 14.8 Hct 43.8 MCV 96.2 MCH 32.7 MCHC 33.9 RDW 12.5 Plt Count 226 MPV 9.2 Neut % (Auto) 71.2 H Lymph % (Auto) 16.8 [place] % (Auto) 10.6 H Eos % (Auto) 0.6 Baso % (Auto) 0.8 Neut # (Auto) 6.0 Lymph # (Auto) 1.4 [place] # (Auto) 0.9 Eos # (Auto) 0.1 Baso # (Auto) 0.1 WBC Differential . Differential Comment Auto diff final PT INR APTT Sodium 136 Potassium 3.7 Chloride 99 Carbon Dioxide 21.4 Anion Gap 16 H BUN 13 Creatinine 0.82 Estimated GFR Greater than 89 POC Glucose Random Glucose 323 H Hemoglobin A1c Calcium 8.6 Phosphorus Magnesium Total Bilirubin AST ALT Alkaline Phosphatase Total Protein Albumin TSH Free T4 Urine Color Yellow Urine Clarity Clear Urine pH 5.0 Ur Specific [place] 1.032 Urine Protein Negative Urine Glucose (UA) 500 or greater Urine Ketones 20 Urine Occult Blood Negative Urine Nitrate Negative Urine Bilirubin Negative Urine Urobilinogen Less than 2 Ur Leukocyte Esterase Negative Urine RBC 1 Urine WBC 4 Ur Squamous Epith Cells <1 Urine Mucus Few H Micro UA Comment Culture not ind Ur Microscopic Review Not Reportable Urine Culture Comments Culture not ind Blood Type Antibody Screen 11/10/17 11/10/17 11/11/17 14:54 14:54 03:39 WBC 8.5 RBC 4.61 Hgb 15.1 Hct 43.9 MCV 95.2 MCH 32.7 MCHC 34.3 RDW 12.5 Plt Count 229 MPV 9.2 Neut % (Auto) 61.2 Lymph % (Auto) 24.4 [place] % (Auto) 12.2 H Eos % (Auto) 1.2 Baso % (Auto) 1.0 Neut # (Auto) 5.2 Lymph # (Auto) 2.1 [place] # (Auto) 1.0 H Eos # (Auto) 0.1 Baso # (Auto) 0.1 WBC Differential . Differential Comment Auto diff final PT 10.1 INR 1.0 APTT 21.9 L Sodium Potassium Chloride Carbon Dioxide Anion Gap BUN Creatinine Estimated GFR POC Glucose Random Glucose Hemoglobin A1c Calcium Phosphorus Magnesium Total Bilirubin AST ALT Alkaline Phosphatase Total Protein Albumin TSH Free T4 Urine Color Urine Clarity Urine pH Ur Specific [place] Urine Protein Urine Glucose (UA) Urine Ketones Urine Occult Blood Urine Nitrate Urine Bilirubin Urine Urobilinogen Ur Leukocyte Esterase Urine RBC Urine WBC Ur Squamous Epith Cells Urine Mucus Micro UA Comment Ur Microscopic Review Urine Culture Comments Blood Type A Positive Antibody Screen Negative 11/11/17 11/13/17 11/13/17 03:39 04:00 04:00 WBC 8.9 RBC 4.19 L Hgb 13.9 Hct 40.2 MCV 96.0 MCH 33.2 MCHC 34.6 RDW 12.6 Plt Count 204 MPV 9.0 Neut % (Auto) 62.3 Lymph % (Auto) 23.2 [place] % (Auto) 10.6 H Eos % (Auto) 2.7 Baso % (Auto) 1.2 Neut # (Auto) 5.5 Lymph # (Auto) 2.1 [place] # (Auto) 0.9 Eos # (Auto) 0.2 Baso # (Auto) 0.1 WBC Differential . Differential Comment Auto diff final PT INR APTT Sodium 138 Potassium 3.6 Chloride 100 Carbon Dioxide 23.5 Anion Gap 15 BUN 14 Creatinine 0.76 Estimated GFR Greater than 89 POC Glucose Random Glucose 235 H Hemoglobin A1c 12.2 H Calcium 8.4 L Phosphorus Magnesium Total Bilirubin 1.5 H AST 21 ALT 23 Alkaline Phosphatase 84 Total Protein 7.2 Albumin 2.8 L TSH 1.680 Free T4 Urine Color Urine Clarity Urine pH Ur Specific [place] Urine Protein Urine Glucose (UA) Urine Ketones Urine Occult Blood Urine Nitrate Urine Bilirubin Urine Urobilinogen Ur Leukocyte Esterase Urine RBC Urine WBC Ur Squamous Epith Cells Urine Mucus Micro UA Comment Ur Microscopic Review Urine Culture Comments Blood Type Antibody Screen 11/13/17 11/14/17 11/14/17 04:00 05:52 05:52 WBC 8.4 RBC 4.55 Hgb 14.9 Hct 43.8 MCV 96.3 MCH 32.6 MCHC 33.9 RDW 12.8 Plt Count 239 MPV 8.6 Neut % (Auto) 64.7 Lymph % (Auto) 22.0 [place] % (Auto) 10.4 H Eos % (Auto) 1.8 Baso % (Auto) 1.1 Neut # (Auto) 5.4 Lymph # (Auto) 1.9 [place] # (Auto) 0.9 Eos # (Auto) 0.2 Baso # (Auto) 0.1 WBC Differential . Differential Comment Auto diff final PT INR APTT Sodium 140 139 Potassium 3.9 4.2 Chloride 104 104 Carbon Dioxide 23.6 23.2 Anion Gap 12 12 BUN 15 16 Creatinine 0.69 0.73 Estimated GFR Greater than 89 Greater than 89 POC Glucose Random Glucose 288 H 309 H Hemoglobin A1c Calcium 8.3 L 8.6 Phosphorus 3.0 2.9 Magnesium 1.8 2.0 Total Bilirubin 0.7 0.8 AST 19 16 ALT 24 25 Alkaline Phosphatase 81 93 Total Protein 6.5 D 7.0 Albumin 2.5 L 2.8 L TSH 1.250 Free T4 1.16 Urine Color Urine Clarity Urine pH Ur Specific [place] Urine Protein Urine Glucose (UA) Urine Ketones Urine Occult Blood Urine Nitrate Urine Bilirubin Urine Urobilinogen Ur Leukocyte Esterase Urine RBC Urine WBC Ur Squamous Epith Cells Urine Mucus Micro UA Comment Ur Microscopic Review Urine Culture Comments Blood Type Antibody Screen 11/14/17 11/14/17 11/15/17 05:52 20:49 06:46 WBC 10.6 RBC 4.15 L Hgb 13.7 Hct 40.3 MCV 97.1 MCH 33.0 MCHC 34.0 RDW 12.7 Plt Count 206 MPV 8.7 Neut % (Auto) 71.2 H Lymph % (Auto) 16.0 [place] % (Auto) 12.2 H Eos % (Auto) 0.1 Baso % (Auto) 0.5 Neut # (Auto) 7.5 Lymph # (Auto) 1.7 [place] # (Auto) 1.3 H Eos # (Auto) 0.0 Baso # (Auto) 0.1 WBC Differential . Differential Comment Auto diff final PT INR APTT Sodium Potassium Chloride Carbon Dioxide Anion Gap BUN Creatinine Estimated GFR POC Glucose 361 H Random Glucose Hemoglobin A1c Calcium Phosphorus Magnesium Total Bilirubin AST ALT Alkaline Phosphatase Total Protein Albumin TSH Free T4 Urine Color Urine Clarity Urine pH Ur Specific [place] Urine Protein Urine Glucose (UA) Urine Ketones Urine Occult Blood Urine Nitrate Urine Bilirubin Urine Urobilinogen Ur Leukocyte Esterase Urine RBC Urine WBC Ur Squamous Epith Cells Urine Mucus Micro UA Comment Ur Microscopic Review Urine Culture Comments Blood Type A Positive Antibody Screen Negative 11/15/17 11/15/17 11/16/17 06:46 19:59 07:47 WBC 9.2 RBC 4.21 L Hgb 13.7 Hct 40.4 MCV 96.1 MCH 32.5 MCHC 33.8 RDW 12.5 Plt Count 212 MPV 8.9 Neut % (Auto) 68.7 Lymph % (Auto) 17.9 [place] % (Auto) 11.3 H Eos % (Auto) 1.3 Baso % (Auto) 0.8 Neut # (Auto) 6.3 Lymph # (Auto) 1.6 [place] # (Auto) 1.0 H Eos # (Auto) 0.1 Baso # (Auto) 0.1 WBC Differential . Differential Comment Auto diff final PT INR APTT Sodium 138 Potassium 4.2 Chloride 105 Carbon Dioxide 19.3 L Anion Gap 14 BUN 18 Creatinine 0.73 Estimated GFR Greater than 89 POC Glucose 410 H Random Glucose 266 H Hemoglobin A1c Calcium 8.6 Phosphorus 2.6 Magnesium 2.1 Total Bilirubin 0.8 AST 20 ALT 22 Alkaline Phosphatase 87 Total Protein 6.7 Albumin 2.7 L TSH Free T4 Urine Color Urine Clarity Urine pH Ur Specific [place] Urine Protein Urine Glucose (UA) Urine Ketones Urine Occult Blood Urine Nitrate Urine Bilirubin Urine Urobilinogen Ur Leukocyte Esterase Urine RBC Urine WBC Ur Squamous Epith Cells Urine Mucus Micro UA Comment Ur Microscopic Review Urine Culture Comments Blood Type Antibody Screen 11/16/17 11/16/17 07:47 07:47 WBC RBC Hgb Hct MCV MCH MCHC RDW Plt Count MPV Neut % (Auto) Lymph % (Auto) [place] % (Auto) Eos % (Auto) Baso % (Auto) Neut # (Auto) Lymph # (Auto) [place] # (Auto) Eos # (Auto) Baso # (Auto) WBC Differential Differential Comment PT 10.3 INR 1.0 APTT Sodium 136 Potassium 3.9 Chloride 105 Carbon Dioxide 21.6 Anion Gap 9 BUN 16 Creatinine 0.64 Estimated GFR Greater than 89 POC Glucose Random Glucose 250 H Hemoglobin A1c Calcium 8.3 L Phosphorus 2.3 L Magnesium 1.8 Total Bilirubin 0.8 AST 17 ALT 21 Alkaline Phosphatase 86 Total Protein 6.8 Albumin 2.7 L TSH Free T4 Urine Color Urine Clarity Urine pH Ur Specific [place] Urine Protein Urine Glucose (UA) Urine Ketones Urine Occult Blood Urine Nitrate Urine Bilirubin Urine Urobilinogen Ur Leukocyte Esterase Urine RBC Urine WBC Ur Squamous Epith Cells Urine Mucus Micro UA Comment Ur Microscopic Review Urine Culture Comments Blood Type Antibody Screen - Imaging ITS Impressions Venous Doppler Study 11/10/17 00:00 CONCLUSION: 1. Widespread venous thrombosis of the right lower extremity as above. Hip X-Ray 11/14/17 00:00 CONCLUSION: Excellent alignment of the fracture post fixation. - Procedures - Preoperative Diagnosis (1) Displaced intertrochanteric fracture of right femur, initial encounter for closed fracture Date of procedure: 11/14/17 Procedure: Right hip reduction and intramedullary nail fixation Anesthesia: GETA Surgeon: Anshu Gamble MD Social Work Therapist: NICOLAS Owen PA-C The surgical procedure was assisted by my physician central supply assistant. My P.A. presence was necessary throughout this case for the manipulation and positioning of the surgical extremity. My P.A. was assisting me throughout the duration of this procedure. The skill set of a physician central supply assistant was medically necessary to complete this procedure. During the surgical case the surgical clinical reviewer was working at the back table and the physician central supply assistant was directly assisting me. Operation and Findings: Implants used: Biomet 11 mm short troch nail Plan of activity: Weight-bear as tolerated Patient was seen and evaluated preoperatively. The patient has significant hip pain from intertrochanteric hip fracture. The risk and benefits of surgery were discussed in depth with the patient to include bleeding infection nonunion malunion and need for hip replacement painful hardware as well as medical competitions including but not stroke heart attack and . Patient was seen by psychiatry preoperatively. Patient was deemed incompetent to make decisions regarding his care. This case was discussed with Dr. Rasmussen, Dr. Schwartz, and Dr. Cody. This case was deemed medically necessary and medically urgent given the nature of his fracture. Operative site was marked. Patient was brought to the operating room and placed on fracture table. IV sedation was administered by anesthesiologist. Timeout procedure was performed. Hip and leg were prepped with alcohol followed by DuraPrep and draped in the usual sterile fashion. IV antibiotics were given prior to incision. Procedure began with reduction of fracture. Traction was applied. The leg was manipulated to achieve reduction. Excellent reduction was achieved. Fluoroscopy was used to confirm reduction. A three inch incision was made proximal to the trochanter. Subcutaneous tissue was dissected bluntly. Guidepin was placed at the tip of the trochanter and advanced into the femoral canal. Fluoroscopy confirmed appropriate guidepin placement. A opening reamer was placed over the guidepin. The nail was attached to the insertion handle. Nail was now placed through the tip of the trochanter into the femoral canal. Fluoroscopy confirmed appropriate nail placement. A second incision was made over the lateral thigh. Cannulas were placed through the insertion handle down to the femur. Guidepin was now placed through the femoral nail into the center of the femoral head. Fluoroscopy confirmed appropriate guidepin placement. Screw length was measured. Cannulated drill was placed over the guidepin. Appropriate length lag screw was now placed. Traction was released and compression was applied. The set screw was now tightened in dynamic mode. An additional anti-rotational screw was placed. Using the insertion handle as a guide a distal interlocking screw was drilled and placed. Final fluoroscopy revealed well aligned fracture with well-placed hardware. Incision was closed with 3-0 Vicryl and vince. Sterile dressings were applied. Patient was awakened and transferred to recovery room. Documented By: Anshu Gamble MD Assessment and Plan - Assessment (1) Closed hip fracture requiring operative repair Code(s): S72.009A - Fracture of unspecified part of neck of unspecified femur, initial encounter for closed fracture Status: Acute (2) Fall Code(s): W19.XXXA - Unspecified fall, initial encounter Status: Acute (3) DVT (deep venous thrombosis) Code(s): I82.409 - Acute embolism and thrombosis of unspecified deep veins of unspecified lower extremity Status: Acute (4) Schizoaffective disorder Code(s): F25.9 - Schizoaffective disorder, unspecified Status: Deleted - Plan Mr. Fitch is a 72 yo M with: Right hip fracture Impression: Mechanical fall resulting in R hip fracture 3 days prior. Inability to bear weight afterwards; patient has remained in bed since fracture. Hip XR on admission demonstrating intertrochanteric fracture Per discussion with Orthopedic surgery, patient initially demonstrated knowledge of risks/benefits and elected to proceed; patient subsequently changed mind and had flight of ideas -Orthopedic surgery consulted -Case management and Psychiatry consulted to establish whether patient has capacity -Will make nonweightbearing on RLE currently -Morphine 2mg IV q4hrs for pain control -will give diet and defer surgical plans until capacity determined -We will need surgery patient does not understand the concept-will see what psychiatry has to offer Psychiatric illness Impression: flight of ideas, delusions of grandeur intermittently. Reported PMH of schizophrenia. Neurologic exam normal; oriented -Will call patient's CARE HOME to get further care details -Psychiatry consulted --await their help with his acute psychosis WILL SIGN FOR HIM TO HAVE SURGERY SP DISPLACED INTERTROCHANTERIC FRACTURE OF RIGHT FEMUR REPAIR WITH RIGHT HIP REDUCTION AND INTRAMEDULLARY NAIL FIXATION ON 11-14 DVT Impression: RLE DVT on Doppler US. Tachycardic with immobility. Patient declines treatment at this time -Psych evaluation for capacity NEEDS IVC FILTER FOR EXTENSIVE RIGHT LE DVT TO BE PLACED 11-17 Presurgical evaluation Impression: No reported PMH of cardio/pulmonary/renal disease. Mild sinus tachycardia on EKG (HR 108). CBC/BMP/Coagulation profile unremarkable with exception of glucose 323 -No contraindications to surgery seen -Will give low dose SS insulin/accuchecks due to hyperglycemia on admission Hyperglycemia possible diabetes we will check a hemoglobin A1c NONCOMPLIANCE DUE TO PSYCHIATRIC ISSUES NEEDS SURGERY DUE TO HIGH RISK OF IF NOT HAVING SURGERY DW RN AND PT AND APARTMENT COMMUNITY MANAGER AND CASE MANAGEMENT WILL SIGN FOR HIM TO HAVE SURGERY NEEDS IVC FILTER FOR BL LE DVTS CONSULT IR FOR PROCEDURE 11-17 CASH BECKETT YESTERDAY 11-14 DO TO BEHAVIOR POST SURGERY DVT PPX -SCD's -Will need therapeutic anticoagulation and/or IVC filter based on surgery plans since has DVT SINCE REFUSING ANTICOAGULATION NEEDS IVC FILTER - WILL BE PLACED TODAY 11-17 Code Status: FULL CODE Discussed Condition With: RN AND PT AND CM Discharge Planning: TO HAVE IVC FILTER TODAY DC LATER TODAY OR TOMORROW TO [facility] (1) Closed hip fracture requiring operative repair Qualifiers: Encounter type: initial encounter Laterality: right Qualified Code(s): S72.001A - Fracture of unspecified part of neck of right femur, initial encounter for closed fracture (2) Fall Qualifiers: Encounter type: initial encounter Qualified Code(s): W19.XXXA - Unspecified fall, initial encounter (3) DVT (deep venous thrombosis) Qualifiers: Laterality: right
--- NOTE | 2017-11-17 13:45 | P.PNPSY ---
Subjective Remarks: The patient was seen today for psychiatric reevaluation. The patient continues to be very oppositional, refusing to talk to me, and stating that he does not need to see a psychiatrist. He says that he has invested $1 million in this institution and he does not want to talk with a psychiatrist. The patient is guarded, visibly paranoid, disorganized, refusing to take his oral medication, the only medication that he agrees to take his Tylenol because he says that he was the creator of this medication. There is no reported aggressive behavior or agitation, he is persistent in his opposition and refusal. Patient is unable to tell me the reason he is in the hospital, unable to cooperate with cognitive assessment. Mental Status Examination Appearance: Disheveled Consciousness: Alert Orientation: x4 Speech: Rapid Language: Adequate Fund of Knowledge: Adequate Attention and Concentration: Adequate Memory: Unremarkable Mood: Angry Affect: Irritable Thought Process & Associations: Loose associations, Tangential Thought Content: Bizarre thinking Hallucination Type: None Delusion Type: Paranoid Suicidal Ideation: No Suicidal Plan: No Suicidal Intention: No Homicidal Ideation: No Homicidal Plan: No Homicidal Intention: No Insight: Poor Judgment: Poor Assessment and Plan - Assessment (1) Schizoaffective disorder Code(s): F25.9 - Schizoaffective disorder, unspecified Status: Acute - Plan Plan: Patient continues to be acutely psychotic, paranoid, oppositional, delusional and disorganized. Unable to express a rational choice about his medical treatment, unable to verbalize appreciation or understanding of current medical situation, no able to explore alternative about his treatment, and for this reason the patient does not have decision-making capacity at this moment to refuse medications or surgery. Continue current psychotropic regimen. Justification for Continued Inpatient Stay: Patient is acutely psychotic, on the [place] act, he does not have decision- making capacity to refuse medical treatment at the moment.
[2017-11-17] MEDS ORDERED: Ketamine Inj 500 MG/10 ML Vial ONE (14:05)
--- NOTE | 2017-11-17 14:43 | P.DS ---
Date of admission: 11/10/17 15:43 Primary care physician: UNKNOWN Attending physician on discharge: Jann Rasmussen Anticipated date of discharge: 11/17/17 Brief History from admission: Mr. Fitch is a 72 yo M with no reported PMH schizoaffective disorder who presented to [place] ED from [facility] after reported fall injury 3 days prior. Patient states that he tripped on a slipper and his right leg was bent resulted in him falling. Patient reports immediate knowledge of injury; he was able to crawl into bed and stayed there for ~2 days hoping his pain would improve. Patient was then unable to stand when helped by staff so was taken to hospital. He reports pain when standing but that he felt good last night so he thought he was improving. Patient denies medical conditions. No reported head injury from fall; he states that it was from tripping. Patient does not report chest pain, shortness of breath, abdominal pain, abnormal urination, or abnormal BM. 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 He generally does well and doesn't need assistance from staff PMH- schizoaffective disorder PSH- L humerus fracture Allergies- NKDA Meds- None; occasional ASA Patient update on day of discharge: Mr. Fitch is a 72 yo M with no reported PMH schizoaffective disorder who presented to [place] ED from [facility] after reported fall injury 3 days prior. Patient states that he tripped on a slipper and his right leg was bent resulted in him falling. Patient reports immediate knowledge of injury; he was able to crawl into bed and stayed there for ~2 days hoping his pain would improve. Patient was then unable to stand when helped by staff so was taken to hospital. He reports pain when standing but that he felt good last night so he thought he was improving. Patient denies medical conditions. No reported head injury from fall; he states that it was from tripping. Patient does not report chest pain, shortness of breath, abdominal pain, abnormal urination, or abnormal BM. 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 He generally does well and doesn't need assistance from staff PMH- schizoaffective disorder PSH- L humerus fracture Allergies- NKDA Meds- None; occasional ASA 9-22 Mr. Fitch was afebrile with mild tachycardia overnight; otherwise stable VS. US of lower extremities demonstrated DVT. Patient reports that he has refused surgery and that he is sure. He also declines treatment of DVT, stating that it will go away. Patient was told the risks of complication including but still declines. Patient also stated that he wanted me to call the social security office or find and "honest endoscopy technican" to give them his SS digits to confirm that he is a billionaire, helped the [employer], and saved [place]. Patient requests a diet but declines other treatment. He states his leg pain is controlled. 9 patient has flight of ideas. Is acutely bipolar and manic and schizophrenic Await psychiatry Patient is refusing all Lovenox and any other medications Has positive DVT has right hip fracture that needs repair that he is refusing Have discussed with patient and RN and case management NEEDS SURGERY AND TREATMENT FOR DVT NEEDS PSYCHIATRIC EVALUATION 9-24 SEEN BY PSYCHIATRY NEEDS SURGERY WILL HAVE TO SIGN FOR HIM TO HAVE SURGERY DOES NOT HAVE A GUARDIAN AT THIS TIME HAS MEDICAL NECESSITY FOR SURGERY DUE TO WORSENING RISK OF DUE TO NOT HAVING SURGERY AM LABS 9-25 UNDERGOING SURGERY TODAY FOR RIGHT HIP REDUCTION AND INTRAMEDULLARY NAIL FIXATION TODAY TOLERATED PROCEDURE WELL SEEN BEFORE PROCEDURE WAS DONE AM LABS WILL NEED LOVENOX FOR DVTS 9- HAD TO HAVE SOPHY YESTERDAY NEEDS IVC FILTER DUE TO REFUSING ALL ANTICOAGULATION AND NONCOMPLIANCE HAS RIGHT LE DVTS DW RN AND PT AND CM AND ORTHO AND PSYCHIATRY Patient requires a IVC filter due to RIGHT lower extremity DVTs patient is not at capacity to give consent and has no family to do this therefore 2 physicians will sign like we did for his hip surgery. I will be happy to sign the consent. Yesterday the orthopedic surgeon signed for the patient to have hip surgery. I will need another signature of another physician to be able to get approval for the procedure. This is medically necessary and needs to physicians to sign for and I will be 1 of the signatures. 9- TO HAVE IVC FILTER LATER TODAY SINCE NOT USUALLY TAKING ANTICOAGULANTS WELL AND POOR COMPLIANCE AND HAS RIGHT LE DVTS DW RN AND PT AND CM PT REMAINS DELUSIONAL 9 TO GO FOR IVC FILTER LATER TODAY SINCE REFUSING MOST MEDS OTHER THAN TYLENOL REMAINS DELUSIONAL NEEDS IVC FILTER DW RN AND PT AND CM AND RADIOLOGY DC TO SNF TOMORROW AFTER IVC FILTER PLACED TODAY HAVING IVC PLACED TODAY CAN DC AFTER IT IS DONE DS: Diagnosis - Discharge Diagnosis (1) Closed hip fracture requiring operative repair Status: Acute (2) Fall Status: Acute (3) DVT (deep venous thrombosis) Status: Acute (4) Schizoaffective disorder Status: Chronic DS: Medications - Discharge Medications Prescriptions: hydrocodone-acetaminophen [[place]] 1 tab PO Q4H PRN #42 tab PRN Reason: Acute Pain rivaroxaban [Xarelto] 10 mg PO DAILY #14 tab sennosides-docusate sodium [Senna Plus] 2 tab PO BID #120 tab DS: Summary Hospital Course: Mr. Fitch is a 72 yo M with no reported PMH schizoaffective disorder who presented to [place] ED from [facility] after reported fall injury 3 days prior. Patient states that he tripped on a slipper and his right leg was bent resulted in him falling. Patient reports immediate knowledge of injury; he was able to crawl into bed and stayed there for ~2 days hoping his pain would improve. Patient was then unable to stand when helped by staff so was taken to hospital. He reports pain when standing but that he felt good last night so he thought he was improving. Patient denies medical conditions. No reported head injury from fall; he states that it was from tripping. Patient does not report chest pain, shortness of breath, abdominal pain, abnormal urination, or abnormal BM. 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 He generally does well and doesn't need assistance from staff PMH- schizoaffective disorder PSH- L humerus fracture Allergies- NKDA Meds- None; occasional ASA 9-22 Mr. Fitch was afebrile with mild tachycardia overnight; otherwise stable VS. US of lower extremities demonstrated DVT. Patient reports that he has refused surgery and that he is sure. He also declines treatment of DVT, stating that it will go away. Patient was told the risks of complication including but still declines. Patient also stated that he wanted me to call the social security office or find and "honest endoscopy technican" to give them his SS digits to confirm that he is a billionaire, helped the [employer], and [place]. Patient requests a diet but declines other treatment. He states his leg pain is controlled. 9 patient has flight of ideas. Is acutely bipolar and manic and schizophrenic Await psychiatry Patient is refusing all Lovenox and any other medications Has positive DVT has right hip fracture that needs repair that he is refusing Have discussed with patient and RN and case management NEEDS SURGERY AND TREATMENT FOR DVT NEEDS PSYCHIATRIC EVALUATION 9 SEEN BY PSYCHIATRY NEEDS SURGERY WILL HAVE TO SIGN FOR HIM TO HAVE SURGERY DOES NOT HAVE A GUARDIAN AT THIS TIME HAS MEDICAL NECESSITY FOR SURGERY DUE TO WORSENING RISK OF DUE TO NOT HAVING SURGERY AM LABS 9 UNDERGOING SURGERY TODAY FOR RIGHT HIP REDUCTION AND INTRAMEDULLARY NAIL FIXATION TODAY TOLERATED PROCEDURE WELL SEEN BEFORE PROCEDURE WAS DONE AM LABS WILL NEED LOVENOX FOR DVTS 9 HAD TO HAVE SOPHY YESTERDAY NEEDS IVC FILTER DUE TO REFUSING ALL ANTICOAGULATION AND NONCOMPLIANCE HAS RIGHT LE DVTS DW RN AND PT AND CM AND ORTHO AND PSYCHIATRY Patient requires a IVC filter due to RIGHT lower extremity DVTs patient is not at capacity to give consent and has no family to do this therefore 2 physicians will sign like we did for his hip surgery. I will be happy to sign the consent. Yesterday the orthopedic surgeon signed for the patient to have hip surgery. I will need another signature of another physician to be able to get approval for the procedure. This is medically necessary and needs to physicians to sign for and I will be 1 of the signatures. 9 TO HAVE IVC FILTER LATER TODAY SINCE NOT USUALLY TAKING ANTICOAGULANTS WELL AND POOR COMPLIANCE AND HAS RIGHT LE DVTS DW RN AND PT AND CM PT REMAINS DELUSIONAL 928 TO GO FOR IVC FILTER LATER TODAY SINCE REFUSING MOST MEDS OTHER THAN TYLENOL REMAINS DELUSIONAL NEEDS IVC FILTER DW RN AND PT AND CM AND RADIOLOGY DC TO SNF TOMORROW AFTER IVC FILTER PLACED TODAY HAVING IVC PLACED TODAY CAN DC AFTER IT IS DONE PATIENT HAD HIP REPAIR AND IVC FILTER PLACEMENT HAS DVT REFUSES ANTICOAGULATION THEREFORE IVC FILTER PLACED HAS BEEN DEEMED INCOMPETENT BY PSYCHIATRY - Time Spent with Patient Total time spent providing and/or coordinating discharge services: Greater than 30 minutes - Quality: VTE Deep Vein Thrombosis/Pulmonary Embolism Present on Admission: No Exam Vital signs: Vital Signs 11/16/17 20:00 11/17/17 00:00 11/17/17 08:00 Temperature 97.8 F 98.7 F 97.6 F Pulse Rate 102 H 103 H 103 H Respiratory Rate 18 18 18 Blood Pressure 141/76 H 149/85 H 141/84 H Pulse Oximetry 94 L 95 93 L 11/17/17 12:00 Temperature 98.1 F Pulse Rate 109 H Respiratory Rate 18 Blood Pressure 112/90 Pulse Oximetry 95 Intake & Output 11/16/17 11/17/17 11/17/17 18:59 06:59 18:59 Intake Total 320 / 320 Output Total 400 / 400 900 / 900 Balance -80 / -80 -900 / -900 Weight 70 kg Intake: Oral 320 / 320 Output: Urine 400 / 400 900 / 900 Other: Date of Last Bowel Movement 11/14/17 11/14/17 # Bowel Movements 0 Narrative: Gen: NAD Skin: No visible lesions HEENT: EOMI; PERRLA. Cardiovascular: Regular rate and rhythm; normal perfusion. Respiratory: CTAB; normal rate Abdominal: Soft, nontender, nondistended. Normal BS Ext: Grossly normal ROM and motor function of upper extremities> RLE extended; ROM of RLE not assessed. No pain at rest. R LE DRESSED Neuro: Oriented to place, person, time. Grossly normal CN. Grossly normal peripheral motor/sensory function Psych: Patient would answer questions directly when asked but would have tangential thoughts and delusions of grandeur Major flight of ideas Insight and judgment is nonexistent Mood and behavior is inappropriate Results Procedures completed during hospitalization: - Preoperative Diagnosis (1) Displaced intertrochanteric fracture of right femur, initial encounter for closed fracture Date of procedure: 11/14/17 Procedure: Right hip reduction and intramedullary nail fixation Anesthesia: GETA Surgeon: Anshu Gamble MD Finished Cloth Examiner: NICOLAS Owen PA-C The surgical procedure was assisted by my physician technical administrative assistant. My P.A. presence was necessary throughout this case for the manipulation and positioning of the surgical extremity. My P.A. was assisting me throughout the duration of this procedure. The skill set of a physician technical administrative assistant was medically necessary to complete this procedure. During the surgical case the surgical resident was working at the back table and the physician technical administrative assistant was directly assisting me. Operation and Findings: Implants used: Biomet 11 mm short troch nail Plan of activity: Weight-bear as tolerated Patient was seen and evaluated preoperatively. The patient has significant hip pain from intertrochanteric hip fracture. The risk and benefits of surgery were discussed in depth with the patient to include bleeding infection nonunion malunion and need for hip replacement painful hardware as well as medical competitions including but not stroke heart attack and . Patient was seen by psychiatry preoperatively. Patient was deemed incompetent to make decisions regarding his care. This case was discussed with Dr. Rasmussen, Dr. Schwartz, and Dr. Cody. This case was deemed medically necessary and medically urgent given the nature of his fracture. Operative site was marked. Patient was brought to the operating room and placed on fracture table. IV sedation was administered by anesthesiologist. Timeout procedure was performed. Hip and leg were prepped with alcohol followed by DuraPrep and draped in the usual sterile fashion. IV antibiotics were given prior to incision. Procedure began with reduction of fracture. Traction was applied. The leg was manipulated to achieve reduction. Excellent reduction was achieved. Fluoroscopy was used to confirm reduction. A three inch incision was made proximal to the trochanter. Subcutaneous tissue was dissected bluntly. Guidepin was placed at the tip of the trochanter and advanced into the femoral canal. Fluoroscopy confirmed appropriate guidepin placement. A opening reamer was placed over the guidepin. The nail was attached to the insertion handle. Nail was now placed through the tip of the trochanter into the femoral canal. Fluoroscopy confirmed appropriate nail placement. A second incision was made over the lateral thigh. Cannulas were placed through the insertion handle down to the femur. Guidepin was now placed through the femoral nail into the center of the femoral head. Fluoroscopy confirmed appropriate guidepin placement. Screw length was measured. Cannulated drill was placed over the guidepin. Appropriate length lag screw was now placed. Traction was released and compression was applied. The set screw was now tightened in dynamic mode. An additional anti-rotational screw was placed. Using the insertion handle as a guide a distal interlocking screw was drilled and placed. Final fluoroscopy revealed well aligned fracture with well-placed hardware. Incision was closed with 3-0 Vicryl and vince. Sterile dressings were applied. Patient was awakened and transferred to recovery room. Documented By: Anshu Gamble MD IVC FILTER 11-17 Completed studies during hospitalization: Laboratory Results WBC 9.2 th/mm3 (4.0-11.0) 11/16/17 07:47 RBC 4.21 mil/mm3 (4.50-5.90) L 11/16/17 07:47 Hgb 13.7 gm/dL (13.0-17.0) 11/16/17 07:47 Hct 40.4 % (39.0-51.0) 11/16/17 07:47 MCV 96.1 fL (80.0-100.0) 11/16/17 07:47 MCH 32.5 pg (27.0-34.0) 11/16/17 07:47 MCHC 33.8 % (32.0-36.0) 11/16/17 07:47 RDW 12.5 % (11.6-17.2) 11/16/17 07:47 Plt Count 212 th/mm3 (150-450) 11/16/17 07:47 MPV 8.9 fL (7.0-11.0) 11/16/17 07:47 Neut % (Auto) 68.7 % (16.0-70.0) 11/16/17 07:47 Lymph % (Auto) 17.9 % (9.0-44.0) 11/16/17 07:47 [place] % (Auto) 11.3 % (0.0-8.0) H 11/16/17 07:47 Eos % (Auto) 1.3 % (0.0-4.0) 11/16/17 07:47 Baso % (Auto) 0.8 % (0.0-2.0) 11/16/17 07:47 Neut # (Auto) 6.3 th/mm3 (1.8-7.7) 11/16/17 07:47 Lymph # (Auto) 1.6 th/mm3 (1.0-4.8) 11/16/17 07:47 [place] # (Auto) 1.0 th/mm3 (0.0-0.9) H 11/16/17 07:47 Eos # (Auto) 0.1 th/mm3 (0.0-0.4) 11/16/17 07:47 Baso # (Auto) 0.1 th/mm3 (0.0-0.2) 11/16/17 07:47 WBC Differential . 11/16/17 07:47 Differential Comment Auto diff final 11/16/17 07:47 PT 10.3 sec (9.8-11.6) 11/16/17 07:47 INR 1.0 Ratio 11/16/17 07:47 APTT 21.9 sec (24.3-30.1) L 11/10/17 14:54 Sodium 136 meq/L (136-145) 11/16/17 07:47 Potassium 3.9 meq/L (3.5-5.1) 11/16/17 07:47 Chloride 105 meq/L (98-107) 11/16/17 07:47 Carbon Dioxide 21.6 meq/L (21.0-32.0) 11/16/17 07:47 Anion Gap 9 meq/L (5-15) 11/16/17 07:47 BUN 16 mg/dL (7-18) 11/16/17 07:47 Creatinine 0.64 mg/dL (0.60-1.30) 11/16/17 07:47 Estimated GFR Greater than 89 mL/min (>89) 11/16/17 07:47 POC Glucose 410 mg/dl (68-110) H 11/15/17 19:59 Random Glucose 250 mg/dL (74-106) H 11/16/17 07:47 Hemoglobin A1c 12.2 % (4.3-6.0) H 11/13/17 04:00 Calcium 8.3 mg/dL (8.5-10.1) L 11/16/17 07:47 Phosphorus 2.3 mg/dL (2.5-4.9) L 11/16/17 07:47 Magnesium 1.8 mg/dL (1.5-2.5) 11/16/17 07:47 Total Bilirubin 0.8 mg/dL (0.2-1.0) 11/16/17 07:47 AST 17 U/L (15-37) 11/16/17 07:47 ALT 21 U/L (12-78) 11/16/17 07:47 Alkaline Phosphatase 86 U/L (45-117) 11/16/17 07:47 Total Protein 6.8 g/dL (6.4-8.2) 11/16/17 07:47 Albumin 2.7 g/dL (3.4-5.0) L 11/16/17 07:47 Vit D 1,25-Dihydroxy 46 pg/mL (18-64) 11/15/17 06:46 TSH 1.250 uIU/mL (0.358-3.740) 11/13/17 04:00 Free T4 1.16 ng/dL (0.76-1.46) 11/13/17 04:00 Urine Color Yellow (Yellw/Straw) 11/10/17 12:18 Urine Clarity Clear (Clear) 11/10/17 12:18 Urine pH 5.0 (5.0-8.5) 11/10/17 12:18 Ur Specific [place] 1.032 (1.002-1.035) 11/10/17 12:18 Urine Protein Negative mg/dL (Neg-Trace) 11/10/17 12:18 Urine Glucose (UA) 500 or greater mg/dL (Negative) 11/10/17 12:18 Urine Ketones 20 mg/dL (Negative) 11/10/17 12:18 Urine Occult Blood Negative (Negative) 11/10/17 12:18 Urine Nitrate Negative (Negative) 11/10/17 12:18 Urine Bilirubin Negative (Negative) 11/10/17 12:18 Urine Urobilinogen Less than 2 mg/dL (Less than 2) 11/10/17 12:18 Ur Leukocyte Esterase Negative (Negative) 11/10/17 12:18 Urine RBC 1 /hpf (0-3) 11/10/17 12:18 Urine WBC 4 /hpf (0-5) 11/10/17 12:18 Ur Squamous Epith Cells <1 /hpf (0-5) 11/10/17 12:18 Urine Mucus Few /lpf (Occasional) H 11/10/17 12:18 Micro UA Comment Culture not ind 11/10/17 12:18 Ur Microscopic Review Not Reportable 11/10/17 12:18 Urine Culture Comments Culture not ind 11/10/17 12:18 Blood Type A Positive 11/14/17 05:52 Antibody Screen Negative 11/14/17 05:52 Impressions Venous Doppler Study 11/10/17 00:00 CONCLUSION: 1. Widespread venous thrombosis of the right lower extremity as above. Hip X-Ray 11/14/17 00:00 CONCLUSION: Excellent alignment of the fracture post fixation. Labs on day of discharge: Labs from last 24 hours 11/15/17 06:46 Vit D 1,25-Dihydroxy 46 - Impressions ITS Impressions Venous Doppler Study 11/10/17 00:00 CONCLUSION: 1. Widespread venous thrombosis of the right lower extremity as above. Hip X-Ray 11/14/17 00:00 CONCLUSION: Excellent alignment of the fracture post fixation. Discharge Plan - Discharge Disposition Patient Disposition: Discharge to SNF - Discharge Condition Condition: Fair - Discharge Order Discharge Orders: Discharge Order (Routine); Ordered 11/17/17 Ordered By: Jann Rasmussen - Discharge Details Anticipated Discharge Date: 11/17/17 Discharge Comment: DC TO SNF WHEN BED AVAILABLE AT SNF AFTER IVC FILTER PLACED - Physicians Team Primary Care Provider: UNKNOWN, Attending Provider: Jann Rasmussen Other Providers: Dennys Weaver MD ; Anshu Gamble MD ; [facility] ; Oj Bowles MD ; [facility]ency ; [facility] ; [facility],Agency
[2017-11-17] MEDS ORDERED: Labetalol HCl Inj 100 MG/20 ML Vial IV.CONT ONE (15:00)
[2017-11-17] MEDS ORDERED: Esmolol Bolus Inj 100 MG/10 ML Vial IV.PUSH ONE (15:00)
[2017-11-17] MEDS ORDERED: Iohexol 350 MG/ML 50 ML Vial (for Rad Diag) IV.SIG ONE (15:20)
--- NOTE | 2017-11-17 15:42 | P.RAD ---
Post Procedure Progress Note - Pre Procedure Diagnosis (1) Closed hip fracture requiring operative repair (2) DVT (deep venous thrombosis) - Post Procedure Diagnosis (1) Closed hip fracture requiring operative repair (2) DVT (deep venous thrombosis) (3) Schizoaffective disorder - Procedure Information Procedure Date: 11/17/17 Supervising Radiologist: Tomas Pruett MD Estimated blood loss (mL): 0 Anesthesia: MAC - Plan of Activity Patient to Unit: PACU Patient Condition: Good See PACS Report for procedural detail/treatment. Vascular - Venous Procedure right Abdominal Procedure(s): Permanent IVC Filter
--- NOTE | 2017-11-17 15:52 | IR ---
EXAM DATE: 11/17/2017 12:00 AM EDT AGE/SEX: 72 years / Male INDICATIONS: Patient with bilateral lower extremity DVT in need of IVC filter placement CLINICAL DATA: This is the patient's initial encounter. Patient reports that signs and symptoms have been present for 1 week and indicates a pain score of Nonresponsive. MEDICAL/SURGICAL HISTORY: Schizoaffective disorder, Left humerus fracture None. COMPARISON: No prior exams available for comparison. FLUORO TIME (min): 1.1 IMAGE SERIES: 3 ACCESS SITE: Right internal jugular vein CONTRAST (cc): 40cc Omnipaque (iohexol) 350 Anesthesia and pain control was provided by the Anesthesia department. DEVICE(S): IVC Vena tech IVC filter . . PROCEDURE : 1. Ultrasound-guided venipuncture. 2. Inferior venacavogram. 3. Inferior vena cava filter placement. 4. Conscious sedation with continuous EKG and oximetry monitoring. The risks, benefits and alternatives to the procedure were explained and verbal and written consent w as obtained. The site was prepped in sterile fashion. Full sterile technique was used, including ca p, mask, sterile gloves and gown and a large sterile sheet. Hand hygiene and 2% chlorhexidine and/or betadine/alcohol prep was utilized per protocol for cutaneous antisepsis. Sterile gel and sterile p robe cover were utilized for ultrasound guidance. The skin and subcutaneous tissues were infiltrated with local anesthetic solution. With ultrasound and fluoroscopic guidance the targeted vein was punctured and a vascular sheath was p laced. Inferior venacavogram was performed to demonstrate level of renal veins. No caval thrombus was identified. The prescribed filter was deployed in the infrarenal inferior vena cava. Following deplo yment the filter was identified in good position. Conscious sedation was performed with the prescribed dosages and duration as above in the presence of an independent trained radiology nurse to assist in the monitoring of the patient. EKG and oximetry remained stable throughout the procedure. The patient tolerated the procedure well and there were n o complications. The patient was sent to post anesthesia recovery in stable condition. CONCLUSION: 1. Uncomplicated inferior vena cava filter placement as above. Electronically signed by: Tomas Pruett MD 11/17/2017 3:51 PM EDT
[2017-11-18] MEDS: Insulin NovoLOG Aspart Correctional Sugar Inj SQ SCH ×3 (02:01→11:36)
[2017-11-18] MEDS: Acetaminophen 325 MG Tablet PO PRN ×2 (02:01→11:26)
[2017-11-18] MEDS: Sod Chloride 0.9% Inj 1,000 ML IV.CONT SCH (06:29)
--- NOTE | 2017-11-18 07:47 | P.PNOP ---
Subjective Interval history: pt having continued post operative right leg pain no other complaints this morning other than he does not feel he is ready to be discharged, wants to stay longer Physical Exam Vital signs: Vital Signs 11/17/17 08:00 11/17/17 12:00 11/17/17 15:37 Temperature 97.6 F 98.1 F 98 F Pulse Rate 103 H 109 H 92 H Respiratory Rate 18 18 18 Blood Pressure 141/84 H 112/90 136/79 Pulse Oximetry 93 L 95 95 11/17/17 15:45 11/17/17 16:00 11/17/17 16:15 Temperature Pulse Rate 95 H 92 H 93 H Respiratory Rate 18 18 18 Blood Pressure 137/81 131/75 134/79 Pulse Oximetry 95 95 95 11/17/17 16:28 11/17/17 20:00 11/18/17 00:00 Temperature 98 F 98.4 F 98.8 F Pulse Rate 94 H 106 H 101 H Respiratory Rate 18 18 18 Blood Pressure 124/68 154/75 H 135/79 Pulse Oximetry 95 94 L 93 L 11/18/17 04:00 Temperature 98.0 F Pulse Rate 100 H Respiratory Rate 17 Blood Pressure 148/76 H Pulse Oximetry 96 Intake & Output 11/17/17 11/18/17 11/18/17 18:59 06:59 18:59 Output Total 300 / 300 1050 / 1050 Balance -300 / -300 -1050 / -1050 Weight 70 kg Output: Urine 300 / 300 1050 / 1050 Other: Date of Last Bowel Movement 11/16/17 11/16/17 Narrative: also seen and examined by Leila Todd dry pan charger in room as well right lower extremity dressings dry and intact +NVI no pain with passive range of motion of right leg Results - Labs CBC & Chem 7: 11/16/17 07:47 11/16/17 07:47 Laboratory Results - last 24 hr 11/15/17 06:46 Vit D 1,25-Dihydroxy 46 - Imaging Impressions IVC Filter Placement X-Ray 11/17/17 00:00 CONCLUSION: 1. Uncomplicated inferior vena cava filter placement as above. - Procedures - Preoperative Diagnosis (1) Displaced intertrochanteric fracture of right femur, initial encounter for closed fracture Date of procedure: 11/14/17 Procedure: Right hip reduction and intramedullary nail fixation Anesthesia: GETA Surgeon: Anshu Gamble MD Distribution Coordinator: NICOLAS Owen PA-C The surgical procedure was assisted by my physician physicians assistant. My P.A. presence was necessary throughout this case for the manipulation and positioning of the surgical extremity. My P.A. was assisting me throughout the duration of this procedure. The skill set of a physician physicians assistant was medically necessary to complete this procedure. During the surgical case the manager technical was working at the back table and the physician physicians assistant was directly assisting me. Operation and Findings: Implants used: Biomet 11 mm short troch nail Plan of activity: Weight-bear as tolerated Patient was seen and evaluated preoperatively. The patient has significant hip pain from intertrochanteric hip fracture. The risk and benefits of surgery were discussed in depth with the patient to include bleeding infection nonunion malunion and need for hip replacement painful hardware as well as medical competitions including but not stroke heart attack and . Patient was seen by psychiatry preoperatively. Patient was deemed incompetent to make decisions regarding his care. This case was discussed with Dr. Rasmussen, Dr. Schwartz, and Dr. Cody. This case was deemed medically necessary and medically urgent given the nature of his fracture. Operative site was marked. Patient was brought to the operating room and placed on fracture table. IV sedation was administered by anesthesiologist. Timeout procedure was performed. Hip and leg were prepped with alcohol followed by DuraPrep and draped in the usual sterile fashion. IV antibiotics were given prior to incision. Procedure began with reduction of fracture. Traction was applied. The leg was manipulated to achieve reduction. Excellent reduction was achieved. Fluoroscopy was used to confirm reduction. A three inch incision was made proximal to the trochanter. Subcutaneous tissue was dissected bluntly. Guidepin was placed at the tip of the trochanter and advanced into the femoral canal. Fluoroscopy confirmed appropriate guidepin placement. A opening reamer was placed over the guidepin. The nail was attached to the insertion handle. Nail was now placed through the tip of the trochanter into the femoral canal. Fluoroscopy confirmed appropriate nail placement. A second incision was made over the lateral thigh. Cannulas were placed through the insertion handle down to the femur. Guidepin was now placed through the femoral nail into the center of the femoral head. Fluoroscopy confirmed appropriate guidepin placement. Screw length was measured. Cannulated drill was placed over the guidepin. Appropriate length lag screw was now placed. Traction was released and compression was applied. The set screw was now tightened in dynamic mode. An additional anti-rotational screw was placed. Using the insertion handle as a guide a distal interlocking screw was drilled and placed. Final fluoroscopy revealed well aligned fracture with well-placed hardware. Incision was closed with 3-0 Vicryl and vince. Sterile dressings were applied. Patient was awakened and transferred to recovery room. Documented By: Anshu Gamble MD IVC FILTER 11-17 Assessment and Plan - Assessment and Plan 1) Right Intertroch Hip Fx s/p IMN - POD #4 -WBAT -daily dressing changes -psych and med mgmt -CM for DC planning. SNF vs home - orthopedically stable to be discharged today -DVT prophylaxis - lovenox -f/u wtraquel Gamble or GUILLERMO in 2 weeks
[2017-11-18] MEDS: Enoxaparin Inj 30 MG/0.3 ML Syringe SQ SCH (10:15)
[2017-11-18] MEDS: Senna/Docusate Sodium 8.6/50 MG Tablet PO SCH ×2 (10:15→12:48)
[2017-11-18] MEDS: Calcium/Vitamin D 250/125 MG Tablet PO SCH ×2 (10:15→12:03)
[2017-11-18 13:47] VITALS: BP 142/76; PULSE 116; RESP 14; TEMP 97.6; O2SAT 95
--- NOTE | 2017-11-18 14:11 | P.PN ---
Subjective Interval history: Follow-up for right femur fracture. Patient is currently resting in bed. Denies any chest pain, shortness of breath, fever or chills. Orthopedic surgery cleared for discharge. Physical Exam Vital signs: Vital Signs 11/17/17 15:37 11/17/17 15:45 11/17/17 16:00 Temperature 98 F Pulse Rate 92 H 95 H 92 H Respiratory Rate 18 18 18 Blood Pressure 136/79 137/81 131/75 Pulse Oximetry 95 95 95 11/17/17 16:15 11/17/17 16:28 11/17/17 20:00 Temperature 98 F 98.4 F Pulse Rate 93 H 94 H 106 H Respiratory Rate 18 18 18 Blood Pressure 134/79 124/68 154/75 H Pulse Oximetry 95 95 94 L 11/18/17 00:00 11/18/17 04:00 11/18/17 08:00 Temperature 98.8 F 98.0 F 98 F Pulse Rate 101 H 100 H 105 H Respiratory Rate 18 17 24 Blood Pressure 135/79 148/76 H 157/90 H Pulse Oximetry 93 L 96 94 L 11/18/17 12:00 Temperature 97.6 F Pulse Rate 116 H Respiratory Rate 14 Blood Pressure 142/76 H Pulse Oximetry 95 Intake & Output 11/17/17 11/18/17 11/18/17 18:59 06:59 18:59 Output Total 300 / 300 1050 / 1050 Balance -300 / -300 -1050 / -1050 Weight 70 kg Output: Urine 300 / 300 1050 / 1050 Other: Date of Last Bowel Movement 11/16/17 11/16/17 11/18/17 Narrative: GENERAL: Alert, NAD. SKIN: Warm and dry. HEAD: Normocephalic. EYES: No scleral icterus. No injection or drainage. NECK: Supple, trachea midline. No JVD or lymphadenopathy. CARDIOVASCULAR: Regular rate and rhythm without murmurs, gallops, or rubs. RESPIRATORY: Breath sounds equal bilaterally. No accessory muscle use. GASTROINTESTINAL: Abdomen soft, non-tender, nondistended. MUSCULOSKELETAL: No cyanosis, or edema. Right lower extremity dressing intact. BACK: Nontender without obvious deformity. No CVA tenderness. Results - Labs CBC & Chem 7: 11/16/17 07:47 11/16/17 07:47 - Imaging Impressions IVC Filter Placement X-Ray 11/17/17 00:00 CONCLUSION: 1. Uncomplicated inferior vena cava filter placement as above. - Procedures - Preoperative Diagnosis (1) Displaced intertrochanteric fracture of right femur, initial encounter for closed fracture Date of procedure: 11/14/17 Procedure: Right hip reduction and intramedullary nail fixation Anesthesia: GETA Surgeon: Anshu Gamble MD Quill Skinner: NICOLAS Owen PA-C The surgical procedure was assisted by my physician registered medical assistant. My P.A. presence was necessary throughout this case for the manipulation and positioning of the surgical extremity. My P.A. was assisting me throughout the duration of this procedure. The skill set of a physician registered medical assistant was medically necessary to complete this procedure. During the surgical case the oxygen equipment technician was working at the back table and the physician registered medical assistant was directly assisting me. Operation and Findings: Implants used: Biomet 11 mm short troch nail Plan of activity: Weight-bear as tolerated Patient was seen and evaluated preoperatively. The patient has significant hip pain from intertrochanteric hip fracture. The risk and benefits of surgery were discussed in depth with the patient to include bleeding infection nonunion malunion and need for hip replacement painful hardware as well as medical competitions including but not stroke heart attack and . Patient was seen by psychiatry preoperatively. Patient was deemed incompetent to make decisions regarding his care. This case was discussed with Dr. Rasmussen, Dr. Schwartz, and Dr. Cody. This case was deemed medically necessary and medically urgent given the nature of his fracture. Operative site was marked. Patient was brought to the operating room and placed on fracture table. IV sedation was administered by anesthesiologist. Timeout procedure was performed. Hip and leg were prepped with alcohol followed by DuraPrep and draped in the usual sterile fashion. IV antibiotics were given prior to incision. Procedure began with reduction of fracture. Traction was applied. The leg was manipulated to achieve reduction. Excellent reduction was achieved. Fluoroscopy was used to confirm reduction. A three inch incision was made proximal to the trochanter. Subcutaneous tissue was dissected bluntly. Guidepin was placed at the tip of the trochanter and advanced into the femoral canal. Fluoroscopy confirmed appropriate guidepin placement. A opening reamer was placed over the guidepin. The nail was attached to the insertion handle. Nail was now placed through the tip of the trochanter into the femoral canal. Fluoroscopy confirmed appropriate nail placement. A second incision was made over the lateral thigh. Cannulas were placed through the insertion handle down to the femur. Guidepin was now placed through the femoral nail into the center of the femoral head. Fluoroscopy confirmed appropriate guidepin placement. Screw length was measured. Cannulated drill was placed over the guidepin. Appropriate length lag screw was now placed. Traction was released and compression was applied. The set screw was now tightened in dynamic mode. An additional anti-rotational screw was placed. Using the insertion handle as a guide a distal interlocking screw was drilled and placed. Final fluoroscopy revealed well aligned fracture with well-placed hardware. Incision was closed with 3-0 Vicryl and vince. Sterile dressings were applied. Patient was awakened and transferred to recovery room. Documented By: Anshu Gamble MD IVC FILTER 11-17 Assessment and Plan - Assessment (1) Closed hip fracture requiring operative repair Code(s): S72.009A - Fracture of unspecified part of neck of unspecified femur, initial encounter for closed fracture Status: Acute (2) Fall Code(s): W19.XXXA - Unspecified fall, initial encounter Status: Acute (3) DVT (deep venous thrombosis) Code(s): I82.409 - Acute embolism and thrombosis of unspecified deep veins of unspecified lower extremity Status: Acute (4) Schizoaffective disorder Code(s): F25.9 - Schizoaffective disorder, unspecified Status: Chronic - Plan Mr. Fitch is a 72 yo M with no reported PMH schizoaffective disorder who presented to [facility] from [facility] after reported fall injury 3 days prior. He was found to have right femur fracture and underwent right hip reduction and intramedullary nail fixation by orthopedic surgery. Intertrochanteric fracture of right femur - s/p right hip reduction and intramedullary nail fixation - Orthopedic surgery cleared for discharge. Discharge order in place. - Pain control with Zenda. Diabetes mellitus - Currently on sliding scale insulin. Will add Levemir 7 units QHS. Goal BG 140-180. - Titrate up insulin as needed. Schizophrenia -continue Haldol 0.5 mg p.o. twice daily Full code. Lovenox. Discharge plan: Patient can be discharged when SNF is arranged. (1) Closed hip fracture requiring operative repair Qualifiers: Encounter type: initial encounter Laterality: right Qualified Code(s): S72.001A - Fracture of unspecified part of neck of right femur, initial encounter for closed fracture (2) Fall Qualifiers: Encounter type: initial encounter Qualified Code(s): W19.XXXA - Unspecified fall, initial encounter (3) DVT (deep venous thrombosis) Qualifiers: Laterality: right
[2017-11-18] MEDS ORDERED: Insulin Detemir Inj 1,000 UNIT/10 ML Vial SQ SCH (21:00)
== END 2017-11-18 14:38 ==
LOC: NEPC 11:30 → NEDA 15:43 → N06 19:26
PROVIDERS: ADMIT Hospitalist; ATTEND Hospitalist